=== PATIENT | male | born 1950 | race Caucasian/White ===

== ENCOUNTER → 2020-05-29 13:10 | Outpatient (BNVA) | payer MEDICARE, MEDICAID, SELFPAY | PROVIDERS: Visit Provider Internal Medicine Gastroenterology | DX: Z76.89 Persons encountering health services in other specified circumstances (principal) | CPT/HCPCS: Q3014 ==

== ENCOUNTER → 2020-06-02 10:01 | Outpatient (BNVA) | payer SELFPAY | PROVIDERS: Visit Provider Internal Medicine | DX: Z02.79 Encounter for issue of other medical certificate (principal) ==

== ENCOUNTER → 2020-08-27 09:23 | Outpatient (BNVA) | payer MEDICARE, MEDICAID, SELFPAY | PROVIDERS: Visit Provider Internal Medicine Gastroenterology | DX: D13.2 Benign neoplasm of duodenum (principal); K21.9 Gastro-esophageal reflux disease without esophagitis; Z86.010 Personal history of colon polyps | CPT/HCPCS: Q3014 ==

== ENCOUNTER 2020-12-09 08:03 | Outpatient (REF) | payer MEDICARE, MEDICAID, SELFPAY ==
[2020-12-09 11:58] LABS: Alanine Aminotransferase 50 U/L (0-40); Albumin Level 4.4 g/dL (3.5-5.0); Alkaline Phosphatase 85 U/L (39-117); Anion Gap 13 (12-20); Aspartate Amino Transferase 38 U/L (5-37); Bilirubin Total 0.3 mg/dL (0.0-1.0); Blood Urea Nitrogen 13 mg/dL (9-16); Carbon Dioxide 25 mmol/L (22-29); Chloride 107 mmol/L (96-108); Cholesterol 148 mg/dL; Estimated Glomerular Filt Rate > 60; Glucose Fasting 96 mg/dL (60-99); HDL Cholesterol 36 mg/dL; LDL Cholesterol Calculated 79 mg/dl; Potassium 4.6 mmol/L (3.3-5.1); Sodium 140 mmol/L (135-145); Total Protein 7.1 g/dL (6.5-8.0); Triglycerides 167 mg/dL
[2020-12-09 12:04] LABS: Prostate Specific Antigen Scr 1.24 ng/mL (<0.05-4.0); TSH reflex Free T4 1.97 uIU/mL (0.32-4.0)
== END 2020-12-09 08:04 | disposition home or self-care (01) ==
LOC: HO.HMGCLDS 08:03
PROVIDERS: PCP Nurse Practitioner Family; Visit Provider Nurse Practitioner Family
DX: Z00.00 Encounter for general adult medical examination without abnormal findings (principal); Z12.5 Encounter for screening for malignant neoplasm of prostate; M65.311 Trigger thumb, right thumb
CPT/HCPCS: 20550; 36415; 80053; 80061; 84153; 84443; 99202

== ENCOUNTER → 2020-12-11 10:11 | Outpatient (BNVA) | payer MEDICARE, MEDICAID, SELFPAY | PROVIDERS: PCP Nurse Practitioner Family; Visit Provider Hospitalist | DX: G47.33 Obstructive sleep apnea (adult) (pediatric) (principal); R06.00 Dyspnea, unspecified; M79.89 Other specified soft tissue disorders | CPT/HCPCS: 99202 ==

== ENCOUNTER → 2020-12-14 08:23 | Outpatient (REF) | payer MEDICARE, MEDICAID, SELFPAY ==
--- NOTE | 2020-12-14 08:31 | ECG_ITS ---
Test Reason : DYSPNEA Blood Pressure : / mmHG Vent. Rate : 060 BPM Atrial Rate : 060 BPM P-R Int : 172 ms QRS Dur : 084 ms QT Int : 398 ms P-R-T Axes : 064 014 013 degrees QTc Int : 398 ms Normal sinus rhythm Nonspecific T wave abnormality Abnormal ECG When compared with ECG of 06-MAR-2017 15:45, No significant change was found Referred By: Varun Maldonado Electronically Signed By:TORI REED MD
[2020-12-14 10:04] LABS: HBc Num1 0.05 S/CO (0.00-0.79)
[2020-12-14 10:05] LABS: HBsAGNum1 0.21 S/CO (0.00-0.99); Hepatitis B Core Antibody Nonreactive (Nonreactive); Hepatitis B Surface Antigen Negative (Negative); ~HepC Num1 0.05 S/CO (0.00-0.79); ~Hepatitis C Antibody Nonreactive (Nonreactive)
[2020-12-15 05:10] LABS: HBS Num1 0.21 mIU/mL (0-7.99); ~Hepatitis B Surface Antibody NONREACTIVE (Nonreactive)
[2020-12-16 08:44] LABS: Hepatitis A Antibody IgM 0.13 Index (0-0.79); ~Hepatitis A Antibody IgM Nonreactive (Nonreactive)
== END ==
LOC: HO.CARD 08:23
PROVIDERS: PCP Nurse Practitioner Family; Visit Provider Hospitalist
DX: Z01.84 Encounter for antibody response examination (principal); R06.00 Dyspnea, unspecified; R74.8 Abnormal levels of other serum enzymes; G47.33 Obstructive sleep apnea (adult) (pediatric)
CPT/HCPCS: 36415; 86704; 86706; 86709; 86803; 87340; 93005

== ENCOUNTER 2020-12-17 09:44 | Outpatient (REF) | payer MEDICARE, MEDICAID, SELFPAY ==
--- NOTE | ~2020-12-17 | US_ITS ---
EXAMINATION: US ABDOMEN COMPLETE CLINICAL INFORMATION: Elevated liver enzymes. COMPARISON: CT abdomen and pelvis with contrast dated 01/10/2011. TECHNIQUE: Real-time imaging of the abdominal viscera. Technically difficult study secondary to body habitus. FINDINGS: PANCREAS: The visualized head and body of the pancreas appears unremarkable. Remainder of the pancreas is obscured by bowel gas. ABDOMINAL AORTA: Limited visualization of the proximal aorta. The mid and distal aorta. Unremarkable., INFERIOR VENA CAVA: Limited visualization, visualized segments appear unremarkable. LIVER: Diffuse increased hepatic echogenicity. Liver is enlarged spanning 20 cm. The liver contour is normal. No focal hepatic lesion. There is no intrahepatic biliary duct dilatation seen. GALLBLADDER: Gallstones present. The gallbladder is physiologically distended. No evidence of gallbladder wall thickening or pericholecystic fluid. COMMON BILE DUCT: Normal in caliber measuring 0.52 cm in diameter. RIGHT KIDNEY: Normal. No hydronephrosis. No renal calculi or focal parenchymal lesions. The kidney measures 12.7 cm in maximum dimension. LEFT KIDNEY: Upper pole 1.7 cm anechoic avascular cyst. Lower pole 1 cm exophytic anechoic avascular cyst. No hydronephrosis or renal calculi. The kidney measures 13.9 cm in maximum dimension. SPLEEN: Normal. The spleen measures 12.3 cm in maximum dimension. FREE FLUID: None. US/US abdomen complete IMPRESSION: 1. Hepatomegaly. There is generalized increase in hepatic echotexture, consistent with fatty infiltration or hepatocellular disease. Please correlate clinically. No focal hepatic mass or intrahepatic biliary duct dilatation is seen. 2. Additional findings/details as above.
== END 2020-12-17 09:45 | disposition home or self-care (01) ==
LOC: HO.US 09:44
PROVIDERS: PCP Nurse Practitioner Family; Visit Provider Nurse Practitioner Family
DX: R74.8 Abnormal levels of other serum enzymes (principal)
CPT/HCPCS: 76700

== ENCOUNTER → 2020-12-28 09:42 | Outpatient (REF) | payer MEDICARE, MEDICAID, SELFPAY | LOC: HO.SL 09:42 | PROVIDERS: PCP Nurse Practitioner Family; Visit Provider Hospitalist | DX: G47.33 Obstructive sleep apnea (adult) (pediatric) (principal); R06.00 Dyspnea, unspecified; M79.89 Other specified soft tissue disorders | CPT/HCPCS: 95806 ==

== ENCOUNTER → 2020-12-30 10:47 | Outpatient (REF) | payer MEDICARE, MEDICAID, SELFPAY ==
--- NOTE | 2020-12-30 10:51 | CA_ITS ---
Acquisition Time: 2020-12-30 11:01:28 Total Exercise Time: 00:07:54 Test Indications: SOB Medications: SEE CHART Protocol: MINDY Max HR: 142 BPM 93% of Pred: 152 BPM Max BP: 164/088 mmHG Max Work Load: 8.0 METS Exercise stress ECHO using Bruse protocol, total of 6 min 41 sec. METS 8.00 and TAPHR up to 93 %. Pt tolerated well, denies any anginal sx. EKG with mild upsloping ST depressions seen in lateral and inferior leads. ECHO images taken at rtest and immediately after peak exercise HR achieved. Definity contrast used. Normotensive response to exercise. Test reviewed with Dr. Crocker. STRESS ECHO : Technique : Images were obtained at rest amd immediately post exercise within 1 minute Definity contrast was used to enhance endocardial definition Images were obtained in multiple views and compared side to side. Findings : At rest images were of good quality. LV systolic function is normal with normal wall motion. Post exercise images were borderline quality due to off axis views. There is good overall augmentation of LV systolic function. On off axis parasternal short axis views there appears to be inferior and inferoseptal hypokinesis of th emid segments. However these findings are not seen on apical views which are also off axis. Conclusion : Stress echo appears to be negative for ischemia with lower confidence of interpretation. Referred By: Varun Maldonado Overread By: TORI CROCKER MD
== END ==
LOC: HO.CARD 10:47
PROVIDERS: PCP Nurse Practitioner Family; Visit Provider Hospitalist
DX: R06.00 Dyspnea, unspecified (principal); G47.33 Obstructive sleep apnea (adult) (pediatric); M79.89 Other specified soft tissue disorders
CPT/HCPCS: 93350; Q9957

== ENCOUNTER → 2021-02-01 10:23 | Outpatient (BNVA) | payer MEDICARE, MEDICAID, SELFPAY | PROVIDERS: PCP Nurse Practitioner Family; Visit Provider Hospitalist | DX: G47.33 Obstructive sleep apnea (adult) (pediatric) (principal); R06.00 Dyspnea, unspecified; M79.89 Other specified soft tissue disorders | CPT/HCPCS: 99212 ==

== ENCOUNTER → 2021-02-10 14:18 | Outpatient (BNVA) | payer MEDICARE, MEDICAID, SELFPAY | PROVIDERS: Visit Provider Urology | DX: N28.1 Cyst of kidney, acquired (principal); N20.0 Calculus of kidney; G47.33 Obstructive sleep apnea (adult) (pediatric); Z87.891 Personal history of nicotine dependence | CPT/HCPCS: 99202 ==

== ENCOUNTER → 2021-03-04 09:43 | Outpatient (BNVA) | payer MEDICARE, MEDICAID, SELFPAY | PROVIDERS: Referring Provider Nurse Practitioner Family; Visit Provider Internal Medicine Gastroenterology | DX: K21.9 Gastro-esophageal reflux disease without esophagitis (principal); D13.2 Benign neoplasm of duodenum; K76.0 Fatty (change of) liver, not elsewhere classified; E66.01 Morbid (severe) obesity due to excess calories; R06.00 Dyspnea, unspecified; M79.89 Other specified soft tissue disorders; G47.33 Obstructive sleep apnea (adult) (pediatric); Z87.891 Personal history of nicotine dependence; Z68.41 Body mass index [BMI] 40.0-44.9, adult; Z86.010 Personal history of colon polyps; Z79.899 Other long term (current) drug therapy | CPT/HCPCS: 99212 ==

== ENCOUNTER → 2021-03-15 10:40 | Outpatient (BNVA) | payer MEDICARE, MEDICAID, SELFPAY | PROVIDERS: PCP Nurse Practitioner Family; Visit Provider Hospitalist | DX: G47.33 Obstructive sleep apnea (adult) (pediatric) (principal); M79.89 Other specified soft tissue disorders; R06.00 Dyspnea, unspecified | CPT/HCPCS: 99212 ==

== ENCOUNTER → 2021-03-19 11:02 | Outpatient (BNVA) | payer MEDICARE, MEDICAID, SELFPAY | PROVIDERS: Visit Provider Dietitian, Registered | DX: E66.01 Morbid (severe) obesity due to excess calories (principal); Z68.41 Body mass index [BMI] 40.0-44.9, adult | CPT/HCPCS: 97802 ==

== ENCOUNTER 2021-04-12 08:56 | Day surgery (SDC) | payer MEDICARE, MEDICAID, SELFPAY ==
[2021-04-06 14:46] VITALS: BMI 43.9
--- NOTE | 2021-04-09 13:04 | P.CONAN_ITS ---
Documented by User: Fannie Ash NP 04/09/21 13:09 HPI - Anesthesia Eval Consult details Narrative: 71yo M for Upper Endoscopy and Colonoscopy [facility] Active Problems Active Problems: All Active Problems (Updated 03/04/21 @ 10:15 by Rod Gomez MD) Morbid obesity with BMI of 40.0-44.9, adult (Acute) NAFL (nonalcoholic fatty liver) (Acute) Cyst of left kidney (Acute) Limb swelling (Acute) Dyspnea (Acute) DESIREE (obstructive sleep apnea) (Acute) Trigger finger of right thumb (Acute) Elevated liver enzymes (Acute) Sleep apnea (Acute) Trigger finger of all digits of both hands (Acute) Trigger finger of both hands (Acute) Physical exam (Acute) Hyperlipidemia (Acute) Gout (Acute) Hypertension (Acute) History of colon polyps (Acute) Adenomatous duodenal polyp (Acute) GERD without esophagitis (Acute) Past Medical History Medical History (Updated 04/09/21 @ 13:05 by Fannie Ash NP) Cyst of left kidney Dyspnea GERD without esophagitis Gout Hyperlipidemia Hypertension Limb swelling Morbid obesity with BMI of 40.0-44.9, adult NAFL (nonalcoholic fatty liver) DESIREE (obstructive sleep apnea) Sleep apnea Family History Family History Father Family history of high blood pressure Mother Hx of rheumatoid arthritis Surgical History Surgical History History of colonoscopy Hx of endoscopy Hx of total knee replacement Social History Social History Household Members: Spouse Alcohol intake: current Alcohol intake frequency: does not drink Patient Tobacco Use Status: Former Tobacco user Tobacco use type: Cigarette Years Smoked: 5 years Advance Directives: No Advance Directives Information Provided: Yes Current occupational status: retired Current occupation: rt hand Meds Allergies Allergy/AdvReac Type Severity Reaction Status Date / Time No Known Allergies Allergy Verified 03/15/21 10:47 [No Known Allergies*] Home Medications Medication Instructions Recorded Confirmed Last Taken Type escitalopram oxalate 10 mg tablet 10 mg PO DAILY 11/19/20 03/04/21 Unknown History hydroxyzine pamoate 25 mg capsule 25 mg PO BID 11/19/20 03/04/21 12/11/20 10:24 History cholecalciferol (vitamin D3) 250 250 mcg PO DAILY 12/11/20 03/04/21 Unknown History mcg (10,000 unit) capsule fluticasone propionate 50 spray INTRANASAL 12/11/20 03/04/21 Unknown History mcg/actuation nasal spray,suspension oxcarbazepine 300 mg tablet 300 mg PO BID 12/11/20 03/04/21 Unknown History Exam Exam Date and Time: April 09, 2021 1304 Height,Weight and Vital Signs: Height 5 ft 9 in Weight 135.171 kg Pertinent Lab Results Pertinent Lab Results: Laboratory Tests 12/09/20 08:13 Sodium 140 Potassium 4.6 Chloride 107 Carbon Dioxide 25 BUN 13 Creatinine 0.98 Calcium 9.0 Total Bilirubin 0.3 AST 38 H ALT 50 H Alkaline Phosphatase 85 Total Protein 7.1 Albumin 4.4 Narrative Narrative: EKG 11/2020 Vent. Rate : 060 BPM ? ? Atrial Rate : 060 BPM ?? P-R Int : 172 ms? QRS Dur : 084 ms ? ? QT Int : 398 ms ? ? ? P-R-T Axes : 064 014 013 degrees ?? QTc Int : 398 ms ? Normal sinus rhythm Nonspecific T wave abnormality Abnormal ECG When compared with ECG of 06-MAR-2017 15:45, No significant change was found Stress ECHO 12/2020 Exercise stress ECHO using Bruse protocol, total of 6 min 41 sec.? METS 8.00 and ?TAPHR up to 93 %.? Pt tolerated well, denies any anginal sx.? EKG with mild ?upsloping ST depressions seen in lateral and inferior leads.? ECHO images taken ?at rtest and immediately after peak exercise HR achieved.? Definity contrast ?used.? Normotensive response to exercise.? Test reviewed with Dr. Crocker. ? Assessment and Plan Assessment Anesthesia Assessment: Chart Reviewed Documented by User: Jannie Sutherland MD 04/12/21 09:22 [facility] Past Medical History Medical History (Updated 04/09/21 @ 13:05 by Fannie Ash NP) Cyst of left kidney Dyspnea GERD without esophagitis Gout Hyperlipidemia Hypertension Limb swelling Morbid obesity with BMI of 40.0-44.9, adult NAFL (nonalcoholic fatty liver) DESIREE (obstructive sleep apnea) Sleep apnea Family History Family History Father Family history of high blood pressure Mother Hx of rheumatoid arthritis Family history of problems with anesthesia: No Surgical History Surgical History History of colonoscopy Hx of endoscopy Hx of total knee replacement History of Problems with Anesthesia: No Social History Social History Household Members: Spouse Alcohol intake: current Alcohol intake frequency: does not drink Patient Tobacco Use Status: Former Tobacco user Tobacco use type: Cigarette Years Smoked: 5 years Advance Directives: No Advance Directives Information Provided: Yes Current occupational status: retired Current occupation: rt hand Meds Allergies Allergy/AdvReac Type Severity Reaction Status Date / Time No Known Allergies Allergy Verified 03/15/21 10:47 [No Known Allergies*] Home Medications Medication Instructions Recorded Confirmed Last Taken Type escitalopram oxalate 10 mg tablet 10 mg PO DAILY 11/19/20 03/04/21 Unknown History hydroxyzine pamoate 25 mg capsule 25 mg PO BID 11/19/20 03/04/21 12/11/20 10:24 History cholecalciferol (vitamin D3) 250 250 mcg PO DAILY 12/11/20 03/04/21 Unknown History mcg (10,000 unit) capsule fluticasone propionate 50 spray INTRANASAL 12/11/20 03/04/21 Unknown History mcg/actuation nasal spray,suspension oxcarbazepine 300 mg tablet 300 mg PO BID 12/11/20 03/04/21 Unknown History Exam Airway Mallampati Class: III TM Dist: >3cm Neck ROM: Full Heart: rrr Lungs: cta Assessment and Plan Assessment Anesthesia Assessment: Anesthesia Plan Discussed and Chart Reviewed Final Anesthetic Review Family History of Problems with Anesthesia: No History of Problems with Anesthesia: No NPO: Yes ASA Class: III Final Preanesthetic Review: No Changes in Pt Med Stat, Meds/Allgs Chart Reviewed and Consent Obtained/Reviewed Patient Risk: Intermediate Procedure Risk: Intermediate Anesthetic Plan Anesthetic Plan: MAC: Disposition: Standard PACU
[2021-04-12 09:27] VITALS: BP 147/72; PULSE 54; RESP 18; TEMP 35.9; O2SAT 97; BMI 43.9
[2021-04-12] MEDS: Lactated Ringers 1,000 ML 100 ML IVCONT (09:35)
--- NOTE | 2021-04-12 09:50 | P.HPSUR_ITS ---
Pre-Procedural Eval Section A Date of Service: 04/12/21 The patient is an INPATIENT: No The History & Physical has been completed within 30 days and I have reviewed it.: No Section B Chief Complaint: reflux disease,hx colonic polyps Details of Present Illness: Colon cancer screening, history of duodenal and colon polyps Relevant Family History (Specify if Yes): No Relevant Social History: Tobacco Use (former smoker) Present Medications: see Short Stay Collaborative assessment Medical History: Significant History (Dyspnea Limb swelling DESIREE (obstructive sleep apnea) Sleep apnea) History of Previous Operations: Relevant previous surgery/procedure and date(s) (History of colonoscopy Hx of endoscopy Hx of total knee replacement) Allergies: Allergies Allergy/AdvReac Type Severity Reaction Status Date / Time No Known Allergies Allergy Verified 03/15/21 10:47 [No Known Allergies*] Review of Systems Sugical H&P ROS: Negative: Constitution, Cardiovascular, Respiratory and Gastr ointestinal Exam Surgical H&P Exam: Normal: Heart, Normal: Lungs, Normal: Extremities and Normal: Abdomen Plan Diagnosis/Plan: Unchanged I have reviewed the history and physical and performed a pertinent physical examination on my patient. No changes have occurred unless specified.
--- NOTE | 2021-04-12 10:15 | P.BOP_ITS ---
Brief Operative Note Date of Service: 04/12/21 Pre-op diagnosis: Colon cancer screening, history of colon and duodenal polyp Post-op diagnosis: other (Gastritis, colon polyps, diverticulosis, hemorrhoids) Procedure: FLEXIBLE TRANSORAL UPPER GASTROINTESTINAL ENDOSCOPY AND COLONOSCOPY PROCEDURE NOTE UPPER ENDOSCOPY Consent: Indications for the procedure and potential complications of bleeding, perforation, reaction to medications and missed diagnosis were discussed with the patient and informed consent was obtained. Instrument: Olympus GIF H 190 mid size upper endoscope Monitoring: Vital signs and clinical assessment, continuous EKG monitoring, Pulse oximetry, Carbon Dioxide monitoring and blood pressure monitoring were done throughout the procedure. Procedure: The patient was placed in the left lateral decubitis position and pre-procedure medications were administered and a bite block was placed. The endoscope was inserted into the mouth and advanced under direct vision to the third part of duodenum. A careful inspection was made as the upper endoscope was withdrawn including a retroflexed examination of the proximal stomach; Findings and interventions are described below. Findings: Larynx: Normal Esophagus: GE junction at 38 cms. No esophagitis or Hinson's. Stomach: Mild gastric erythema with a few antral erosions. Biopsies were obtained from the gastric body and antrum. Grade 2 flap valve on retroflexed examination of the cardia. Duodenum: Normal bulb and descending duodenum. No recurrent polyp noted in the 2nd part of duodenum. Random biopsies were obtained. Intervention: Biopsies as noted above COLONOSCOPY PROCEDURE NOTE Consent: Indications for the procedure and potential complications of bleeding, perforation, reaction to medications and missed diagnosis were discussed with the patient and informed consent was obtained. Instrument: Olympus PCF H 190 L variable stiffness pediatric colonoscope Monitoring: Vital signs and clinical assessment, intermittent blood pressure monitoring, continuous EKG monitoring, Pulse oximetry and Carbon Dioxide monitoring were done throughout the procedure. Colon withdrawl time was 35 minutes. Procedure: The patient was placed in the left lateral decubitis position and pre-procedure medications were administered. After a digital rectal examination of the ano-rectum, the video colonoscope was inserted into the rectum and advanced through the colon to the cecum. The colonoscope was slowly withdrawn in a retrograde panoramic fashion and the colon mucosa was carefully examined including a retroflexed view of the rectum. Findings and interventions are described below. Procedure Difficulty: : Without difficulty Findings: Terminal Ileum: Not evaluated Cecum: Partially evaluated because of poor prep Ascending Colon: A 15-18 mm sessile polyp in the distal AC removed with a hot s nare and retrieved with a Woods net. Transverse Colon: Two 12-15 mm sessile polyps removed with a hot snare and polyps were not retrieved Descending Colon: Normal Sigmoid Colon: Mild diverticulosis Rectum: Normal Ano-rectum: Mild internal hemorrhoids Colon preparation: Good after copious irrigation and Fair to poor in the cecum and some areas of the colon causing the scope to be blocked. Impression and Post Procedure Diagnosis: Endoscopy Findings: STOMACH: Gastritis with a few erosions DUODENUM: Normal - no recurrent duodenal polyp noted. Colonoscopy Findings: Three medium sized polyps removed - one polyp was retieved. Mild diverticulosis seen in the sigmoid colon Mild hemorrhoids on retroflexed exam. Plan: Await pathology results Patient has an appointment on 04/19/21 in the GI Clinic with Rod Gomez M.D.. Repeat Colonoscopy interval based on path results - in 1-2 years if polyps are adenomatous and due to suboptimal prep in the cecum. Above findings were reviewed with the patient and colon polyps handout was given in the discharge area Surgeon: Rod Gomez MD Anesthesia: MAC (Britany Welch CRNA) Was an Emergency Room Registered Nurse used for this Procedure?: Yes Emergency Room Registered Nurse: Debby Sullivan Estimated blood loss (mL): 0 Pathology: other ( A- DUODENAL FOLD B- GASTRIC ANTRUM C- GASTRIC BODY D- ASCENDING COLON POLYP) Condition: stable Disposition: PACU
--- NOTE | 2021-04-12 11:12 | W.PM.OPN ---
Operative Note Operative Note Date of Service: 04/12/21 Narrative: Pre-op diagnosis:?Colon cancer screening, history of colon and duodenal polyp Post-op diagnosis:?other (Gastritis, colon polyps, diverticulosis, hemorrhoids) Procedure:? FLEXIBLE TRANSORAL UPPER GASTROINTESTINAL ENDOSCOPY AND COLONOSCOPY TILL CECUM WITH SNARE POLYPECTOMY UPPER ENDOSCOPY Consent:?Indications for the procedure and potential complications of bleeding, perforation, reaction to medications and missed diagnosis were discussed with the patient and informed consent was obtained. Instrument:?Olympus GIF H 190 mid size upper endoscope Monitoring: Vital signs and clinical assessment, continuous EKG monitoring, Pulse oximetry, Carbon Dioxide monitoring and blood pressure monitoring were done throughout the procedure. Procedure:?The patient was placed in the left lateral decubitis position and pre-procedure medications were administered and a bite block was placed. The endoscope was inserted into the mouth and advanced under direct vision to the third part of duodenum. A careful inspection was made as the upper endoscope was withdrawn including a retroflexed examination of the proximal stomach; Findings and interventions are described below. Findings: Larynx:? Normal Esophagus: GE junction at 38 cms.? No esophagitis or Hinson's. Stomach: Mild gastric erythema with a few antral erosions. Biopsies were obtained from the gastric body and antrum. Grade 2 flap valve on retroflexed examination of the cardia. Duodenum: Normal bulb and descending duodenum.? No recurrent polyp noted in the 2nd part of duodenum.? Random biopsies were obtained. Intervention: Biopsies as noted above COLONOSCOPY PROCEDURE NOTE Consent:?Indications for the procedure and potential complications of bleeding, perforation, reaction to medications and missed diagnosis were discussed with the patient and informed consent was obtained. Instrument:?Olympus PCF H 190 L variable stiffness pediatric colonoscope Monitoring:?Vital signs and clinical assessment, intermittent blood pressure monitoring, continuous EKG monitoring, Pulse oximetry and Carbon Dioxide monitoring were done throughout the procedure. Colon withdrawl time was 35 minutes. Procedure:?The patient was placed in the left lateral decubitis position and pre-procedure medications were administered. After a digital rectal examination of the ano-rectum, the video colonoscope was inserted into the rectum and advanced through the colon to the cecum. The colonoscope was slowly withdrawn in a retrograde panoramic fashion and the colon mucosa was carefully examined including a retroflexed view of the rectum. Findings and interventions are described below. Procedure Difficulty:?: Without difficulty Findings: Terminal Ileum:?Not evaluated Cecum:? Partially evaluated because of poor prep Ascending Colon:? A 15-18 mm sessile polyp in the distal AC removed with a hot snare and retrieved with a Woods net. Transverse Colon:? Two 12-15 mm sessile polyps removed with a hot snare and polyps were not retrieved Descending Colon:? Normal Sigmoid Colon:? Mild diverticulosis Rectum:? Normal Ano-rectum:? Mild internal hemorrhoids Colon preparation:? Good after copious irrigation and fair to poor in the cecum and some areas of the colon causing the scope to be blocked. Impression and Post Procedure Diagnosis: Endoscopy Findings: STOMACH: Gastritis with a few erosions DUODENUM: Normal - no recurrent duodenal polyp noted. Colonoscopy Findings: Three medium sized polyps removed - one polyp was retieved. Mild diverticulosis seen in the sigmoid colon Mild hemorrhoids on retroflexed exam. Plan: Await pathology results Patient has an appointment on 04/19/21 in the GI Clinic with? Rod Gomez M.D.. Repeat Colonoscopy interval based on path results - in 1-2 years if polyps are adenomatous and due to suboptimal prep in the cecum. GERD and Colon polyps handouts were given in the discharge area Surgeon:?Rod Gomez MD Anesthesia:?MAC (Britany Welch CRNA) Was an Toll Transmission Worker used for this Procedure?:?Yes Toll Transmission Worker:?Debby Sullivan Estimated blood loss (mL):?0 Pathology:?other ( A- DUODENAL FOLD? B- GASTRIC ANTRUM? C- GASTRIC BODY? D- ASCENDING COLON POLYP) Condition:?stable Disposition:?PACU
[2021-04-12 11:15] VITALS: BP 120/77; PULSE 53; RESP 16; TEMP 36.4; O2SAT 95
[2021-04-12 11:30] VITALS: BP 137/82; PULSE 57; RESP 18; O2SAT 96
[2021-04-12 11:40] VITALS: BP 135/79; PULSE 53; RESP 18; TEMP 36.7; O2SAT 99
== END 2021-04-12 12:32 | disposition home or self-care (01) ==
PROVIDERS: PCP Nurse Practitioner Family; Visit Provider Internal Medicine Gastroenterology
PROC: (CPT 45385; principal; 2021-04-12 10:20)
DX: Z12.11 Encounter for screening for malignant neoplasm of colon (principal); Z86.010 Personal history of colon polyps; D12.2 Benign neoplasm of ascending colon; K21.9 Gastro-esophageal reflux disease without esophagitis; K29.50 Unspecified chronic gastritis without bleeding; K57.30 Diverticulosis of large intestine without perforation or abscess without bleeding; K64.8 Other hemorrhoids; K76.0 Fatty (change of) liver, not elsewhere classified; G47.33 Obstructive sleep apnea (adult) (pediatric); E66.01 Morbid (severe) obesity due to excess calories; Z68.41 Body mass index [BMI] 40.0-44.9, adult; R06.00 Dyspnea, unspecified; Z79.899 Other long term (current) drug therapy; Z99.89 Dependence on other enabling machines and devices; Z87.891 Personal history of nicotine dependence
CPT/HCPCS: 45385; 43239; 88305; 88342; J3010

== ENCOUNTER → 2021-04-19 13:53 | Outpatient (BNVA) | payer MEDICARE, MEDICAID, SELFPAY | PROVIDERS: Referring Provider Nurse Practitioner Family; Visit Provider Internal Medicine Gastroenterology | DX: K21.9 Gastro-esophageal reflux disease without esophagitis (principal); D13.2 Benign neoplasm of duodenum; Z86.010 Personal history of colon polyps | CPT/HCPCS: 99212 ==

== ENCOUNTER → 2021-04-30 10:18 | Outpatient (BNVA) | payer MEDICARE, MEDICAID, SELFPAY | PROVIDERS: Visit Provider Dietitian, Registered | DX: E66.01 Morbid (severe) obesity due to excess calories (principal); Z68.41 Body mass index [BMI] 40.0-44.9, adult | CPT/HCPCS: 97803 ==

== ENCOUNTER 2021-06-29 10:12 | Outpatient (REF) | payer MEDICARE, MEDICAID, SELFPAY ==
--- NOTE | 2021-06-29 13:52 | MHC.AU.ANO ---
Adult Audiological Evaluation Date of Visit: 06/29/21 Java Mobile Developer Used: Not Applicable Reason for Appointment: Audiologic re-evaluation due to increased perception of bilateral tinnitus and family members question decreased hearing ability as he is asking for speech to be repeated more often. Tyrese notes the constant tinnitus can be annoying; however, it does not interfere with his daily functioning or sleep. Has hearing been tested previously?: Yes Previous Hearing Test Results: 12/30/2019 [facility] Bilateral borderline to mild sensorineural hearing loss with 92% speech understanding for the right ear at 70 dB HL and 88% for the left ear at 65 dB HL Ear History: Ear Infections in Childhood: Both Ears Bothersome Tinnitus/Ringing/Noises in Ears: Both Ears Medical History: Medical History: High Blood Pressure, Arthritis, Gout, Anxiety Medication List: Allopurinol, Indometacin, Oxcarbazepine, Citalopram, Omeprazole, Fluticasone Nasal [place], Hydroxyzine Pamoate Otoscopy: Right Ear: Unremarkable Left Ear: Unremarkable Tympanometry: Tympanometry performed due to: To assess integrity of the middle ear system Right Ear: Normal Middle Ear System (Type A) Left Ear: Normal Middle Ear System (Type A) Otoacoustic Emissions Frequency Range Used: 1.6-8 kHz Right Ear Results: Present 1600 Hz, Reduced 1342-8509 Hz, Absent 3258-3984 Hz Analysis: Present emissions suggest normal cochlear function Rules out peripheral hearing loss greater than a mild degree Reduced/Absent emissions suggest cochlear dysfunction Results are consistent with degree and configuration of hearing loss Left Ear Results: Present 3325-9685 Hz Absent 3444-8488 Hz. Analysis: Present emissions suggest normal cochlear function Rules out peripheral hearing loss greater than a mild degree Reduced/Absent emissions suggest cochlear dysfunction Results are consistent with degree and configuration of hearing loss Hearing Evaluation: Transducer(s) Used: Insert Earphones Bone Conduction Method: Conventional Audiometry Stimuli Used: Pure Tones Right Ear: Description of Hearing: Borderline normal to mild sensorineural hearing loss. Left Ear: Description of Hearing: Borderline normal to mild sensorineural hearing loss. Speech Recognition Threshold (SRT): Method Used: Monitored Live Voice Stimuli Used: Spondee Words Right Ear: 15 dB HL Left Ear: 15 dB HL Word Discrimination: Method: Recorded Lists Word Lists Used: NU-6 Right Ear: 96% at 55 dB HL Left Ear: 100% at 55 dB HL Comparison:Compared to the most recent evaluation: Hearing is stable. Recommendations: - Audiologic re-evaluation in 2 years. Will send a reminder card. If a change in hearing or tinnitus is suspected before that time, an earlier appointment may be scheduled. - Discussed the theories of tinnitus and management strategies. - Discussed the difference between hearing vs listening , and the role attention plays with these skills. Provided a handout regarding Communication Strategies to use to improve speech understanding when needed. Diagnosis: Primary Diagnosis: H93.13 Tinnitus, Bilateral Secondary Diagnosis: H90.3 Bilateral Sensorineural Hearing Loss Services Performed: Comprehensive Audiological Evaluation (CPT 17855) Diagnostic Otoacoustic Emissions (CPT 61056, 26+TC) Tympanometry (CPT 80810) Signature: Provider: Wilma Ling, CCC-A
== END 2021-06-29 10:13 | disposition home or self-care (01) ==
LOC: HO.SH 10:12
PROVIDERS: Visit Provider Nurse Practitioner Family
DX: H93.13 Tinnitus, bilateral (principal); H90.3 Sensorineural hearing loss, bilateral
CPT/HCPCS: 92557; 92567; 92588

== ENCOUNTER → 2021-07-09 20:57 | Outpatient (REF) | payer MEDICARE, MEDICAID, SELFPAY | LOC: HO.SL 20:57 | PROVIDERS: PCP Nurse Practitioner Family; Visit Provider Hospitalist | DX: G47.33 Obstructive sleep apnea (adult) (pediatric) (principal) | CPT/HCPCS: 95810 ==

== ENCOUNTER → 2021-08-06 10:01 | Outpatient (BNVA) | payer MEDICARE, MEDICAID, SELFPAY | PROVIDERS: PCP Nurse Practitioner Family; Visit Provider Dietitian, Registered | DX: E66.01 Morbid (severe) obesity due to excess calories (principal); Z68.42 Body mass index [BMI] 45.0-49.9, adult | CPT/HCPCS: 97803 ==

== ENCOUNTER → 2021-08-27 09:57 | Outpatient (BNVA) | payer MEDICARE, MEDICAID, SELFPAY | PROVIDERS: PCP Nurse Practitioner Family; Visit Provider Hospitalist | DX: G47.33 Obstructive sleep apnea (adult) (pediatric) (principal); G47.61 Periodic limb movement disorder; R06.00 Dyspnea, unspecified; M79.89 Other specified soft tissue disorders | CPT/HCPCS: 99212 ==

== ENCOUNTER → 2021-09-17 10:05 | Outpatient (BNVA) | payer MEDICARE, MEDICAID, SELFPAY | PROVIDERS: PCP Nurse Practitioner Family; Visit Provider Dietitian, Registered | DX: E66.01 Morbid (severe) obesity due to excess calories (principal); Z68.41 Body mass index [BMI] 40.0-44.9, adult; Z71.3 Dietary counseling and surveillance | CPT/HCPCS: 97803 ==

== ENCOUNTER → 2021-11-04 11:53 | Outpatient (BNVA) | payer MEDICARE, MEDICAID, SELFPAY | PROVIDERS: PCP Nurse Practitioner Family; Visit Provider Internal Medicine Gastroenterology | DX: K21.9 Gastro-esophageal reflux disease without esophagitis (principal); K76.0 Fatty (change of) liver, not elsewhere classified; R74.8 Abnormal levels of other serum enzymes; D13.2 Benign neoplasm of duodenum; Z86.010 Personal history of colon polyps | CPT/HCPCS: 99212 ==

== ENCOUNTER → 2021-11-30 09:50 | Outpatient (BNVA) | payer MEDICARE, MEDICAID, SELFPAY | PROVIDERS: PCP Nurse Practitioner Family; Visit Provider Hospitalist | DX: G47.33 Obstructive sleep apnea (adult) (pediatric) (principal); R06.00 Dyspnea, unspecified; M79.89 Other specified soft tissue disorders; G47.61 Periodic limb movement disorder | CPT/HCPCS: 99212 ==

== ENCOUNTER 2021-12-31 06:46 | Outpatient (REF) | payer MEDICARE, MEDICAID, SELFPAY ==
[2021-12-31 11:33] LABS: MANUAL DIFF FLAG NO
[2021-12-31 11:37] LABS: Basophils Absolute Auto 0.1 X10*3/uL (0.0-0.2); Basophils Percent Auto 0.8 % (0-2); Eosinophils Absolute Auto 0.1 X10*3/uL (0.0-0.4); Eosinophils Percent Auto 1.8 % (0-4); Hematocrit 49.1 % (42.0-52.0); Hemoglobin 15.7 g/dl (14.0-18.0); Imm Gran Abs Auto 0.02 X10*3/uL (0.00-0.03); Imm Gran Pct Auto 0.3 % (0.0-0.4); Lymphocytes Absolute Auto 1.4 X10*3/uL (1.2-4.9); Lymphocytes Percent Auto 22.5 % (20-40); Mean Corpuscular Hemoglobin 28.1 pg (27.0-33.0); Mean Corpuscular Volume 87.8 fL (80.0-98.0); Monocytes Absolute Auto 0.4 X10*3/uL (0.1-1.2); Monocytes Percent Auto 6.3 % (2-11); Neutrophils Absolute Auto 4.2 x10*3/uL (2.0-8.3); Neutrophils Percent Auto 68.3 % (45-73); Platelet Count 284 X10*3/uL (160-400); Red Blood Count 5.59 X10*6/uL (4.60-5.80); White Blood Count 6.2 X10*3/uL (4.8-10.8)
[2021-12-31 11:55] LABS: Appearance Urine CLEAR; Color Urine YELLOW; Glucose Urine UA NEG (NEG); Leukocyte Esterase Urine NEG (NEG); Nitrite Urine NEG (NEG); PH 5.5 (5.0-8.0); Specific Gravity - Urine 1.025 (1.005-1.025); Urine Blood NEG (NEG); Urine Ketones NEG (NEG); Urine Protein TRACE MG/DL (NEG-TRACE)
[2021-12-31 11:57] LABS: Alanine Aminotransferase 29 U/L (0-40); Albumin Level 4.6 g/dL (3.5-5.0); Alkaline Phosphatase 71 U/L (39-117); Anion Gap 13 (12-20); Aspartate Amino Transferase 21 U/L (5-37); Bilirubin Total 0.6 mg/dL (0.0-1.0); Blood Urea Nitrogen 18 mg/dL (9-16); Calcium 9.2 mg/dL (8.4-10.2); Carbon Dioxide 27 mmol/L (22-29); Chloride 103 mmol/L (96-108); Cholesterol 160 mg/dL; Estimated Glomerular Filt Rate > 60; Glucose Fasting 104 mg/dL (60-99); HDL Cholesterol 32 mg/dL; LDL Cholesterol Calculated 104 mg/dl; Potassium 4.5 mmol/L (3.3-5.1); Sodium 138 mmol/L (135-145); Total Protein 7.5 g/dL (6.5-8.0); Triglycerides 123 mg/dL
[2021-12-31 12:30] LABS: Prostate Specific Antigen Scr 1.21 ng/mL (<0.05-4.0)
[2022-01-04 15:56] LABS: TS Negative Control Passed; TS Panel A 0; TS Panel B 0; TS Positive Control Passed; TSpotTB Negative (Negative)
== END 2021-12-31 06:47 | disposition home or self-care (01) ==
LOC: HO.HMGCLDS 06:46
PROVIDERS: Visit Provider Nurse Practitioner Family
DX: Z00.00 Encounter for general adult medical examination without abnormal findings (principal); Z12.5 Encounter for screening for malignant neoplasm of prostate; Z11.1 Encounter for screening for respiratory tuberculosis
CPT/HCPCS: 36415; 80053; 80061; 81003; 84153; 84443; 85025; 86481

== ENCOUNTER → 2022-02-28 10:19 | Outpatient (BNVA) | payer MEDICARE, MEDICAID, SELFPAY | PROVIDERS: PCP Nurse Practitioner Family; Visit Provider Hospitalist | DX: G47.33 Obstructive sleep apnea (adult) (pediatric) (principal); R06.00 Dyspnea, unspecified; M79.89 Other specified soft tissue disorders; G47.61 Periodic limb movement disorder; Z79.899 Other long term (current) drug therapy | CPT/HCPCS: 99212 ==

== ENCOUNTER 2022-06-14 11:31 | Outpatient (REF) | payer MEDICARE, MEDICAID, SELFPAY ==
--- NOTE | ~2022-06-14 | XR_ITS ---
EXAMINATION: XR FOOT, LEFT CLINICAL INFORMATION: Pain left foot. COMPARISON: None. TECHNIQUE: AP, lateral, and oblique views of the left foot. FINDINGS: The bones and soft tissues are normal. No fracture. Alignment is anatomic. Joint spaces are maintained. A small retrocalcaneal enthesophyte is seen. XR/XR foot LT min 3V IMPRESSION: Unremarkable left foot.
== END 2022-06-14 11:32 | disposition home or self-care (01) ==
LOC: HO.HMGCX 11:31
PROVIDERS: PCP Nurse Practitioner Family; Visit Provider Nurse Practitioner Family
DX: M79.672 Pain in left foot (principal)
CPT/HCPCS: 73630

== ENCOUNTER 2022-06-16 08:22 | Outpatient (REF) | payer MEDICARE, SELFPAY ==
[2022-06-16 11:11] LABS: MANUAL DIFF FLAG NO
[2022-06-16 11:15] LABS: Appearance Urine Cloudy; Color Urine Yellow; Glucose Urine UA Negative (Negative); Leukocyte Esterase Urine Negative (Negative); Nitrite Urine Negative (Negative); PH 5.5 (5.0-9.0); Urine Blood Negative (Negative); Urine Ketones Negative (Negative); Urine Protein Trace mg/dL (Neg-Trace)
[2022-06-16 11:19] LABS: Basophils Percent Auto 0.6 % (0-2); Eosinophils Absolute Auto 0.1 X10*3/uL (0.0-0.4); Eosinophils Percent Auto 1.9 % (0-4); Hematocrit 52.3 % (42.0-52.0); Hemoglobin 16.3 g/dl (14.0-18.0); Imm Gran Abs Auto 0.01 X10*3/uL (0.00-0.03); Imm Gran Pct Auto 0.2 % (0.0-0.4); Lymphocytes Absolute Auto 1.5 X10*3/uL (1.2-4.9); Lymphocytes Percent Auto 24.2 % (20-40); Mean Corpuscular HGB Conc 31.2 g/dl (31.0-36.0); Mean Corpuscular Hemoglobin 27.5 pg (27.0-33.0); Mean Corpuscular Volume 88.2 fL (80.0-98.0); Mean Platelet Volume 10.3 fL (9.4-12.4); Monocytes Absolute Auto 0.4 X10*3/uL (0.1-1.2); Monocytes Percent Auto 6.3 % (2-11); Neutrophils Absolute Auto 4.1 x10*3/uL (2.0-8.3); Neutrophils Percent Auto 66.8 % (45-73); Platelet Count 257 X10*3/uL (160-400); Red Blood Count 5.93 X10*6/uL (4.60-5.80); Red Cell Distribution Width 13.6 % (11.0-16.0); White Blood Count 6.2 X10*3/uL (4.8-10.8)
[2022-06-16 11:59] LABS: Alanine Aminotransferase 24 U/L (0-40); Albumin Level 4.6 g/dL (3.5-5.0); Alkaline Phosphatase 70 U/L (39-117); Anion Gap 11 (12-20); Aspartate Amino Transferase 19 U/L (5-37); Bilirubin Total 0.5 mg/dL (0.0-1.0); Blood Urea Nitrogen 16 mg/dL (9-16); Calcium 9.6 mg/dL (8.4-10.2); Carbon Dioxide 30 mmol/L (22-29); Chloride 108 mmol/L (96-108); Cholesterol 183 mg/dL; Estimated Glomerular Filt Rate > 60; Glucose Fasting 108 mg/dL (60-99); HDL Cholesterol 37 mg/dL; LDL Cholesterol Calculated 117 mg/dl; Potassium 5.3 mmol/L (3.3-5.1); Sodium 144 mmol/L (135-145); TSH reflex Free T4 2.56 uIU/mL (0.32-4.0); Total Protein 7.5 g/dL (6.5-8.0); Triglycerides 147 mg/dL
== END 2022-06-16 08:23 | disposition home or self-care (01) ==
LOC: HO.HMGCLDS 08:22
PROVIDERS: PCP Nurse Practitioner Family; Visit Provider Nurse Practitioner Family
DX: K76.0 Fatty (change of) liver, not elsewhere classified (principal); M10.9 Gout, unspecified; E87.5 Hyperkalemia
CPT/HCPCS: 36415; 80053; 80061; 81003; 84443; 84550; 85025

== ENCOUNTER → 2022-06-22 13:47 | Outpatient (BNVA) | payer MEDICARE, SELFPAY | PROVIDERS: PCP Nurse Practitioner Family; Visit Provider Orthopaedic Surgery | DX: M77.11 Lateral epicondylitis, right elbow (principal) | CPT/HCPCS: 20551; 99212; J1100 ==

== ENCOUNTER → 2022-06-23 11:48 | Outpatient (BNVA) | payer MEDICARE, SELFPAY | PROVIDERS: PCP Nurse Practitioner Family; Referring Provider Nurse Practitioner Family; Visit Provider Internal Medicine Gastroenterology | DX: K21.9 Gastro-esophageal reflux disease without esophagitis (principal); D13.2 Benign neoplasm of duodenum; R74.8 Abnormal levels of other serum enzymes; Z86.010 Personal history of colon polyps; Z79.899 Other long term (current) drug therapy | CPT/HCPCS: 99212 ==

== ENCOUNTER 2022-07-18 11:00 | Outpatient (REF) | payer MEDICARE, SELFPAY ==
[2022-07-18 14:46] LABS: Anion Gap 14 (12-20); Carbon Dioxide 27 mmol/L (22-29); Chloride 103 mmol/L (96-108); Potassium 4.8 mmol/L (3.3-5.1); Sodium 139 mmol/L (135-145); Uric Acid 4.4 mg/dL (3.4-7.0)
== END 2022-07-18 11:01 | disposition home or self-care (01) ==
LOC: HO.HMGCLDS 11:00
PROVIDERS: Visit Provider Nurse Practitioner Family
DX: M10.9 Gout, unspecified (principal); E87.5 Hyperkalemia
CPT/HCPCS: 36415; 80051; 84550

== ENCOUNTER → 2022-08-29 10:42 | Outpatient (BNVA) | payer MEDICARE, SELFPAY | PROVIDERS: PCP Nurse Practitioner Family; Visit Provider Hospitalist | DX: G47.33 Obstructive sleep apnea (adult) (pediatric) (principal); G47.61 Periodic limb movement disorder; R06.00 Dyspnea, unspecified; M79.89 Other specified soft tissue disorders | CPT/HCPCS: 99212 ==

== ENCOUNTER 2022-10-14 11:38 | Day surgery (SDC) | payer OTHER, SELFPAY ==
[2022-10-12 10:23] VITALS: BMI 41.3
--- NOTE | 2022-10-13 09:55 | HO.ANESPROP2 ---
Documented by User: Fannie Ash NP 10/13/22 09:57 HPI - Anesthesia Eval Consult details Narrative: 72yo M for Upper Endoscopy and Colonoscopy PMF Active Problems Active Problems: All Active Problems (Updated 10/12/22 @ 10:19 by Destiny Pryor RN) Adenomatous duodenal polyp (Acute) History of colon polyps (Acute) Physical exam (Acute) Trigger finger of both hands (Acute) Trigger finger of all digits of both hands (Acute) Sleep apnea (Acute) Elevated liver enzymes (Acute) Trigger finger of right thumb (Acute) Dyspnea (Acute) Hearing loss (Acute) Physical exam (Acute) Screening PSA (prostate specific antigen) (Acute) Screening for tuberculosis (Acute) Foot pain, left (Acute) Hyperkalemia (Acute) Right lateral epicondylitis (Acute) Dyspnea (Acute) Gout (Acute) PLMD (periodic limb movement disorder) (Acute) GERD without esophagitis (Acute) Cyst of left kidney (Acute) NAFL (nonalcoholic fatty liver) (Acute) Limb swelling (Acute) DESIREE (obstructive sleep apnea) (Acute) Past Medical History Medical History Cyst of left kidney Dyspnea GERD without esophagitis Gout Hyperlipidemia Hypertension Limb swelling Morbid obesity with BMI of 40.0-44.9, adult NAFL (nonalcoholic fatty liver) DESIREE (obstructive sleep apnea) PLMD (periodic limb movement disorder) Family History Family History Father Family history of high blood pressure Mother Hx of rheumatoid arthritis Family history of problems with anesthesia: No Surgical History Surgical History History of colonoscopy Hx of endoscopy Hx of total knee replacement History of Problems with Anesthesia: No Social History Social History Household Members: Spouse Housing: House Alcohol intake: current Alcohol intake frequency: former alcohol drinker Patient Tobacco Use Status: Former Tobacco user Quit Date: 45 yrs ago Tobacco use type: Cigarette Years Smoked: 5 years e-Cigarette/Vaping Use: Never Used Second Hand Smoke Exposure: No Use of substances other than those prescribed or required for medical reasons: No Are you DNR?: No Advance Directives: No Advance Directives Information Provided: Yes Current occupational status: retired Current occupation: rt hand Cognitive needs: No Hearing needs: No Vision needs: Yes Meds Allergies Allergy/AdvReac Type Severity Reaction Status Date / Time No Known Allergies Allergy Verified 10/14/22 11:58 [No Known Allergies*] Home Medications Medication Instructions Recorded Confirmed Last Taken Type escitalopram oxalate 10 mg tablet 10 mg PO DAILY 11/19/20 10/14/22 10/14/22 08:00 History cholecalciferol (vitamin D3) 250 250 mcg PO DAILY 12/11/20 10/14/22 Unknown History mcg (10,000 unit) capsule oxcarbazepine 300 mg tablet 300 mg PO BID dizziness 12/11/20 10/14/22 10/14/22 08:00 History CPAP (CPAP Machine/Device) 08/29/22 10/14/22 Unknown History Exam Exam Date and Time: October 13, 2022 0955 Height,Weight and Vital Signs: Height 5 ft 9 in Weight 127.006 kg Pertinent Lab Results Pertinent Lab Results: Laboratory Tests 06/16/22 06/16/22 07/18/22 08:27 08:27 11:05 WBC 6.2 Hgb 16.3 Hct 52.3 H Plt Count 257 Sodium 139 Potassium 4.8 Chloride 103 Carbon Dioxide 27 BUN 16 Creatinine 0.99 Assessment and Plan Assessment Anesthesia Assessment: Chart Reviewed Final Anesthetic Review Family History of Problems with Anesthesia: No History of Problems with Anesthesia: No Documented by User: Jannie Sutherland MD 10/14/22 13:12 [facility] [place] Past Medical History Medical History Cyst of left kidney Dyspnea GERD without esophagitis Gout Hyperlipidemia Hypertension Limb swelling Morbid obesity with BMI of 40.0-44.9, adult NAFL (nonalcoholic fatty liver) DESIREE (obstructive sleep apnea) PLMD (periodic limb movement disorder) Family History Family History Father Family history of high blood pressure Mother Hx of rheumatoid arthritis Surgical History Surgical History History of colonoscopy Hx of endoscopy Hx of total knee replacement Social History Social History Household Members: Spouse Housing: House Alcohol intake: current Alcohol intake frequency: former alcohol drinker Patient Tobacco Use Status: Former Tobacco user Quit Date: 45 yrs ago Tobacco use type: Cigarette Years Smoked: 5 years e-Cigarette/Vaping Use: Never Used Second Hand Smoke Exposure: No Use of substances other than those prescribed or required for medical reasons: No Are you DNR?: No Advance Directives: No Advance Directives Information Provided: Yes Current occupational status: retired Current occupation: rt hand Cognitive needs: No Hearing needs: No Vision needs: Yes Meds Allergies Allergy/AdvReac Type Severity Reaction Status Date / Time No Known Allergies Allergy Verified 10/14/22 11:58 [No Known Allergies*] Home Medications Medication Instructions Recorded Confirmed Last Taken Type escitalopram oxalate 10 mg tablet 10 mg PO DAILY 11/19/20 10/14/22 10/14/22 08:00 History cholecalciferol (vitamin D3) 250 250 mcg PO DAILY 12/11/20 10/14/22 Unknown History mcg (10,000 unit) capsule oxcarbazepine 300 mg tablet 300 mg PO BID dizziness 12/11/20 10/14/22 10/14/22 08:00 History CPAP (CPAP Machine/Device) 08/29/22 10/14/22 Unknown History Exam Airway Mallampati Class: II TM Dist: >3cm Neck ROM: Full Heart: rrr Lungs: cta Assessment and Plan Assessment Anesthesia Assessment: Anesthesia Plan Discussed Final Anesthetic Review NPO: Yes ASA Class: III Final Preanesthetic Review: No Changes in Pt Med Stat, Meds/Allgs Chart Reviewed and Consent Obtained/Reviewed Patient Risk: Intermediate Procedure Risk: Intermediate Anesthetic Plan Anesthetic Plan: MAC: Disposition: Standard PACU
--- NOTE | 2022-10-14 12:09 | MHC.SHP ---
Pre-Procedural Eval Section A Date of Service: 10/14/22 The patient is an INPATIENT: No The History & Physical has been completed within 30 days and I have reviewed it.: No Section B Chief Complaint: abnormal levels,gerd,benign neoplasm,hx polyps Relevant Family History (Specify if Yes): No Relevant Social History: Tobacco Use (Former smoker) Present Medications: see Short Stay Collaborative assessment Medical History: Significant History (Dyspnea GERD without esophagitis Gout Hyperlipidemia Hypertension Limb swelling Morbid obesity with BMI of 40.0-44.9, adult NAFL (nonalcoholic fatty liver) DESIREE (obstructive sleep apnea) PLMD (periodic limb movement disorder) Sleep apnea) History of Previous Operations: Relevant previous surgery/procedure and date(s) (History of colonoscopy Hx of endoscopy Hx of total knee replacement) Allergies: Allergies Allergy/AdvReac Type Severity Reaction Status Date / Time No Known Allergies Allergy Verified 10/14/22 11:58 [No Known Allergies*] Review of Systems Sugical H&P ROS: Negative: Constitution, Cardiovascular, Respiratory and Gastrointestinal Exam Surgical H&P Exam: Normal: Heart, Normal: Lungs, Normal: Extremities and Normal: Abdomen Plan Diagnosis/Plan: Unchanged I have reviewed the history and physical and performed a pertinent physical examination on my patient. No changes have occurred unless specified. Time Spent With Patient Time: Total time managing care of this patient today ____ minutes.
--- NOTE | 2022-10-14 12:11 | W.PM.OPN ---
Operative Note Operative Note Date of Service: 10/14/22 Narrative: FLEXIBLE TRANSORAL UPPER GASTROINTESTINAL ENDOSCOPY WITH BIOPSIES AND SUBMUCOSAL INJECTION AND COLONOSCOPY TILL CECUM WITH BIOPSIES AND SNARE POLYPECTOMY Pre-op diagnosis: Screening, GERD, FU of adenomatous duodenal polyp Post-op diagnosis: Gastritis, duodenal polyp, colon polyps, diverticulosis, hemorrhoids Endoscopist:? Rod Gomez MD Anesthesia:?MAC UPPER ENDOSCOPY Consent: Indications for the procedure and potential complications of bleeding, perforation, reaction to medications and missed diagnosis were discussed with the patient and informed consent was obtained. Instrument: Olympus GIF H 190 mid size upper endoscope Monitoring: Vital signs and clinical assessment, continuous EKG monitoring, Pulse oximetry, Carbon Dioxide monitoring and blood pressure monitoring were done throughout the procedure. Procedure: The patient was placed in the left lateral decubitis position and pre-procedure medications were administered and a bite block was placed. The endoscope was inserted into the mouth and advanced under direct vision to the third part of duodenum. A careful inspection was made as the upper endoscope was withdrawn including a retroflexed examination of the proximal stomach; Findings and interventions are described below. Findings: Larynx: Normal Esophagus: GE junction at 38 cms.? No esophagitis or Hinson's. Stomach: Mild gastric erythema with a few antral erosions. Biopsies were obtained from the gastric body and antrum. Grade 2 flap valve on retroflexed examination of the cardia. Duodenum: Normal bulb and descending duodenum.? A 7 to 8 mm benign appearing polyp in lateral wall of 2nd part of duodenum (opposite the papilla). Polyp was removed with a cold bx and site was marked by ranjith ink.? Intervention: Biopsies and submucosal injection as noted above COLONOSCOPY PROCEDURE NOTE Consent: Indications for the procedure and potential complications of bleeding, perforation, reaction to medications and missed diagnosis were discussed with the patient and informed consent was obtained. Instrument: Olympus PCF H 190 L variable stiffness pediatric colonoscope Monitoring: Vital signs and clinical assessment, intermittent blood pressure monitoring, continuous EKG monitoring, Pulse oximetry and Carbon Dioxide monitoring were done throughout the procedure. Colon withdrawl time was 25 minutes. Procedure: The patient was placed in the left lateral decubitis position and pre-procedure medications were administered. After a digital rectal examination of the ano-rectum, the video colonoscope was inserted into the rectum and advanced through the colon to the cecum. The colonoscope was slowly withdrawn in a retrograde panoramic fashion and the colon mucosa was carefully examined including a retroflexed view of the rectum. Findings and interventions are described below. Procedure Difficulty: Colon was long and there was spasm and some loop formation. Findings: Terminal Ileum: Not evaluated Cecum: Two 5-7 mm sessile polyp - removed with a cold biopsy Ascending Colon: A 10 - 12 mm sessile polyp in the proximal ascending colon - removed with hot snare. Polyp was not retrieved Transverse Colon: Normal Descending Colon: Normal Sigmoid Colon: Moderate diverticulosis Rectum: Normal Ano-rectum: Moderate internal hemorrhoids Colon preparation: Good in the left colon and Fair in the right colon despite copious irrigation Impression and Post Procedure Diagnosis: Endoscopy Findings: STOMACH: Gastritis DUODENUM: Duodenal polyp Colonoscopy Findings: Two small and one medium sized polyps removed Moderate diverticulosis seen in the sigmoid colon Moderate hemorrhoids on retroflexed exam. Plan: Await pathology results Patient has an appointment on 12/22/22 in the GI Clinic with Rod Gomez M.D. Repeat Colonoscopy interval based on path results - in 3 years if polyps are adenomatous and 5 years if polyps are hyperplastic (due to a hx of adenomatous colon polyps).. Above findings were reviewed with the patient and colon polyps and diverticulosis handouts were given in the discharge area
[2022-10-14 12:38] VITALS: BP 137/79; PULSE 46; RESP 16; TEMP 36.4; O2SAT 97
[2022-10-14] MEDS: Lactated Ringers 1,000 ML 100 ML IVCONT (12:40)
[2022-10-14 14:22] VITALS: BP 112/56; PULSE 61; RESP 16; TEMP 36.2
[2022-10-14 14:42] VITALS: BP 149/82; PULSE 49; RESP 20; TEMP 36.4
== END 2022-10-14 16:00 | disposition home or self-care (01) ==
PROVIDERS: PCP Nurse Practitioner Family; Visit Provider Internal Medicine Gastroenterology
PROC: (CPT 45385; principal; 2022-10-14 12:50)
DX: Z12.11 Encounter for screening for malignant neoplasm of colon (principal); Z86.010 Personal history of colon polyps; K63.5 Polyp of colon; K57.30 Diverticulosis of large intestine without perforation or abscess without bleeding; K64.8 Other hemorrhoids; R74.8 Abnormal levels of other serum enzymes; K76.0 Fatty (change of) liver, not elsewhere classified; K21.9 Gastro-esophageal reflux disease without esophagitis; D13.2 Benign neoplasm of duodenum; K29.50 Unspecified chronic gastritis without bleeding; R06.00 Dyspnea, unspecified; E78.5 Hyperlipidemia, unspecified; I10 Essential (primary) hypertension; M10.9 Gout, unspecified; G47.33 Obstructive sleep apnea (adult) (pediatric); G47.61 Periodic limb movement disorder; E66.01 Morbid (severe) obesity due to excess calories; Z68.41 Body mass index [BMI] 40.0-44.9, adult; Z99.89 Dependence on other enabling machines and devices; Z79.899 Other long term (current) drug therapy; Z87.891 Personal history of nicotine dependence
CPT/HCPCS: 45385; 45380; 43239; 43236; 88305; 88342

== ENCOUNTER → 2022-12-22 09:40 | Outpatient (BNVA) | payer OTHER, SELFPAY | PROVIDERS: PCP Nurse Practitioner Family; Visit Provider Internal Medicine Gastroenterology | DX: K21.9 Gastro-esophageal reflux disease without esophagitis (principal); K76.0 Fatty (change of) liver, not elsewhere classified; E66.01 Morbid (severe) obesity due to excess calories; Z86.010 Personal history of colon polyps; Z68.41 Body mass index [BMI] 40.0-44.9, adult | CPT/HCPCS: 99212 ==

== ENCOUNTER 2023-01-18 14:57 | Outpatient (REF) | payer OTHER, SELFPAY ==
--- NOTE | ~2023-01-18 | US_ITS ---
EXAMINATION: US RETROPERITONEAL LIMITED (RENAL ONLY) CLINICAL INFORMATION: Kidney cyst. COMPARISON: Ultrasound abdomen complete 12/17/2020. TECHNIQUE: Real-time imaging of the kidneys. FINDINGS: RIGHT KIDNEY: 14.7 x 6.1 x 6.0 cm (SAG x AP x TRV). The kidney is normal in size, contour, and echogenicity. Renal cortical thickness is normal. No renal calculi or hydronephrosis. Benign-appearing renal cyst measuring 1 cm. No follow up imaging is recommended. LEFT KIDNEY: 11.5 x 5.7 x 5.7 cm (SAG x AP x TRV). The kidney is normal in size, contour, and echogenicity. Renal cortical thickness is normal. No renal calculi or hydronephrosis. Benign-appearing renal cysts measuring up to 1.6 cm. No follow-up imaging is recommended. US/US renal BI IMPRESSION: Benign-appearing bilateral renal cysts measuring up to 1.6 cm. No follow up imaging is recommended.
== END 2023-01-18 14:58 | disposition home or self-care (01) ==
LOC: HO.US 14:57
PROVIDERS: PCP Nurse Practitioner Family; Visit Provider Urology
DX: N28.1 Cyst of kidney, acquired (principal)
CPT/HCPCS: 76775

== ENCOUNTER 2023-02-03 11:07 | Outpatient (AMB) | payer OTHER, SELFPAY ==
--- NOTE | 2023-02-03 11:31 | A.OFFVIS_ITS ---
Intake Intake Visit Reasons: US Follow Up(set) Intake Note: Patient is present for Follow Up Urology Med: None Antibiotic Allergy: None Blood Thinner: None Pharmacy: [facility] Allergies No Known Allergies [No Known Allergies*] Allergy (Verified 02/03/23 11:34) HPI HPI Comments History of Present Illness Details Tyrese is a pleasant male. He is seen for the following urologic issues - renal cyst Stable cyst - no follow-up recommended Trial tamsulosin - 2 month follow-up Lower urinary tract symptoms Hesitancy weakness of stream Progressive No prior therapy Trial alpha-bryan and bladder ultrasound Renal cyst Detected during recent abdominal imaging Imaging - 02/06 1.7 cm left renal cyst on ultrasound - 02/08 renal ultrasound bilateral 1-2 cm cysts - no follow-up recommended by Radiology Natural history of renal cyst discussed P.r.n. follow-up [facility] Medical History Cyst of left kidney Dyspnea GERD without esophagitis Gout Hyperlipidemia Hypertension Limb swelling Morbid obesity with BMI of 40.0-44.9, adult NAFL (nonalcoholic fatty liver) DESIREE (obstructive sleep apnea) PLMD (periodic limb movement disorder) Surgical History History of colonoscopy Hx of endoscopy Hx of total knee replacement Family History Father Family history of high blood pressure Mother Hx of rheumatoid arthritis Social History Household Members: Spouse Housing: House Alcohol intake: current Alcohol intake frequency: former alcohol drinker Patient Tobacco Use Status: Former Tobacco user Quit Date: 45 yrs ago Tobacco use type: Cigarette Years Smoked: 5 years e-Cigarette/Vaping Use: Never Used Second Hand Smoke Exposure: No Current occupational status: retired Current occupation: rt hand Cognitive needs: No Hearing needs: No Vision needs: Yes Review of Systems Const Denies chills and Denies fever(s) Card Reports no additional complaints and Denies syncope Resp Denies cough GI Denies abdominal pain and Denies heartburn Reports as per HPI and Denies change in libido Neuro Denies syncope Psych Denies change in libido Endo Denies change in libido Physical Exam Const General: cooperative, healthy appearing, comfortable and no acute distress Orientation/consciousness: patient oriented x3 HEENT Face and sinus: Yes normal facial exam Mouth: moist mucous membranes Neck Neck: Yes normal visual inspection, Yes full ROM and Yes trachea midline Chest Chest palpation & inspection: normal inspection of the chest Resp Effort & Inspection: normal respiratory effort, able to speak in complete sentences and no respiratory distress GI Inspection: Yes normal to inspection Back/Spine/Pelvis Cervical Spine: normal cervical lordosis Thoracic/Lumbar Spine: thoracic and lumbar spine normal to inspection Skin General skin exam: no rashes or lesions noted Neuro General: patient oriented x3, gait normal, tone normal and moves all extremities Extrem General: Yes normal to inspection and Yes capillary refill normal Assessment & Plan Assessment & Plan (1) Bladder outlet obstruction: Code(s): N32.0 - Bladder-neck obstruction Plan Trial tamsulosin Orders: Orders US bladder Today N32.0 - Bladder-neck obstruction, R39.12 - Poor urinary stream Medications: New tamsulosin 0.4 mg PO BEDTIME 30 days 30 caps 1RF N32.0 - Bladder-neck obstruction, N40.1 - Benign prostatic hyperplasia with lower urinary tract symptoms, R35.1 - Nocturia Patient Instructions: Imaging studies, laboratory and physical exam results were discussed and reviewed in detail. No major barriers to patient understanding were identified. An opportunity to ask questions regarding the treatment plan was provided. All questions were answered. The patient expressed understanding and agreement with the above treatment plan. The patient is aware they should contact our office by phone for worsening of their current condition or the appearance of new urologic symptoms. Compliance is encouraged with any medications and followup testing that is ordered. It is a privilege to participate in the urologic care of your patient. If you have any questions or concerns regarding treatment for the above conditions, or other urologic issues, please do not hesitate to contact me. The office telephone contact is [phone]. This note is constructed using voice recognition software. While every effort has been made to ensure accuracy diesel power shovel operator errors may have been included. Yours sincerely, Dr Mark Marie MD, [facility] - Urology Providers of Expert, Compassionate Care for the Genitourinary System Coding Level of Care Code Est Pt Level 4 (25073) Diagnoses Bladder outlet obstruction N32.0
== END 2023-02-03 12:16 | disposition home or self-care (01) ==
PROVIDERS: PCP Nurse Practitioner Family; Visit Provider Urology
DX: N32.0 Bladder-neck obstruction (principal)
CPT/HCPCS: 99214

== ENCOUNTER → 2023-02-03 11:07 | Outpatient (BNVA) | payer OTHER, SELFPAY | PROVIDERS: PCP Nurse Practitioner Family; Visit Provider Urology | DX: N32.0 Bladder-neck obstruction (principal) | CPT/HCPCS: 99212 ==

== ENCOUNTER 2023-02-27 13:59 | Outpatient (AMB) | payer OTHER, SELFPAY ==
[2023-02-27 14:11] VITALS: PULSE 60; O2SAT 96; BMI 44.0
--- NOTE | 2023-02-27 14:11 | A.OFFVIS_ITS ---
Intake Vital Signs 02/27/23 14:11 Height 5 ft 9 in Weight 298 lb BMI 44.0 Pulse 60 Pulse Source Pulse Oximeter Pulse Oximetry (%) 96 Oxygen Delivery Method Room Air Intake Visit Reasons: Sleep apnea Encyclopedia Research Worker Required: No Allergies No Known Allergies [No Known Allergies*] Allergy (Verified 02/27/23 14:12) HPI HPI Comments History of Present Illness Details The patient is a 72-year-old gentleman with morbid obesity and severe obstructive sleep apnea. He had a sleep study back in 2018 demonstrating an AHI of 82 events an hour with significant desaturation. The patient had a titration study was subsequently placed on PAP. He has [email or web address] and had been using his PAP regularly. However, the patient had issues with compliance. He was also lost to follow-up. Therefore he was an active from his [email or web address] company. The patient however started using his PAP therapy again even though he does not have any new supplies she is because his symptoms were getting much worse. The patient has significant daytime drowsiness with an Cyril score of 14/24. Once he started using the PAP therapy his symptoms improved. However, he is not able to get any supplies from his [email or web address] company since he is inactive. The patient needs an urgent sleep study in order to get reactivated with his [email or web address] company at this time. In the meantime the patient complains of dyspnea on exertion. Moderate severity. He did have a workup including PFT which demonstrated a mild isolated diffusion impairment likely from underlying pulmonary vascular disease. The patient continues to have shortness of breath he denies any chest pains. He has not had an EKG. At least documented in our system since 2017. It demonstrated some nonspecific T-wave changes. He has not had a cardiac evaluation. 02/01/2021 the patient is here for a pul [facility] follow-up visit. The patient continues to have significant daytime drowsiness. He has been using CPAP for many years with significant improvement. His current settings on CPAP his AHI was still 15. The patient is no longer active with a [email or web address] company. Therefore we had him him repeat home sleep study demonstrating an AHI 42. Patient understands that he has severe sleep apnea. He does state that he did have a titration study couple years ago and after that his CPAP was adjusted and has helped. Therefore, this point will request a BiPAP to be initiated for the patient to treat his severe sleep apnea. I did contact the local [email or web address] company in order to do so. Once he is on BiPAP will be able to adjusted. If the BiPAP to having hard time adjusting to decrease his AHI then at that point they will be reasonable to have him have a repeat titration study. In the meantime he did have an abnormal EKG as he was having some chest discomfort. Still some nonspecific T-wave changes. He did undergo a cardiac stress echo which demonstrated no evidence of any ischemia which is reassuring. The patient continues with respiratory therapy. Will follow up in several weeks once he started his new BiPAP. 03/15/2021 the [facility]. The patient continues to struggle with his CPAP. the right his machine his AHI was significantly elevated at 15. We did try to get in touch with his [email or web address] company in order to change his CPAP to a BiPAP in view of his failing CPAP therapy. However, after no response from the [email or web address] company did call. Apparently the patient has been discontinued and he is considered in active with a [email or web address] company. Previously with [employer]. Therefore, the only way of getting him reactivated with a DME company will be with a repeat home sleep study. The patient does have an elevated Cyril score of 11 when he does not use CPAP. Although he is pretty compliant with the CPAP at this time. However, he is not getting any supplies and he has been using the same supplies now apparently for years. Therefore we need to get him a sleep study in order to be able to address his needs. 08/27/2021 the patient is here for a pul onary follow-up visit. Overall the patient has been doing about the same. Continues to have daytime drowsiness. He did have a repeat sleep study which initially demonstrating an AHI of 8.7. He was titrated on CPAP and he was able to be stabilized on CPAP of 11 cm. His oxygenation also improved. He has significant REM during the sleep study suggesting that he was getting appropriate sleep. Therefore, will continue with his current CPAP although will adjust his CPAP settings to accurately meet his needs. Based on his persistent sleep apnea will see about getting him reactivated with his DME company. 11/30/2021 the patient is here for a pulmonary follow-up visit. Overall the patient is doing well. He is tolerating his nasal cradle mask well. He did bring his PAP therapy in. Appears to have a VPAP auto. seems to be responding well to the current therapy. His AHI appears to be between 4-8 events an hour. Although half of the events appeared to be central. Explained to the patient that he has a complex sleep apnea. If we aggressively treat the obstructive component we can always worsen the central component. Therefore decrease the pressure some. But more than that I am concerned that he has significant air leak primarily because the mouth being open. He does like his nasal n30 mask. I did provide him with a chinstrap. I will also request a chinstrap from his [email or web address] company. He will return in 3 months and bring his machine to further adjusted. I am hopeful that he continues to do well and we can try to decrease the central apneas further. From a respiratory status the patient is doing well denies any chest pains or any shortness of breath. He does not use any inhalers. He does have allergies at this time. Does have nasal congestion and a postnasal drip. [id number] severity. 02/28/2022 the patient is here for a pulm onary follow-up visit. Overall he is doing well. He has switch over to a nasal mask because the cradle in the pillows were not effective for him. However, he does not always use the chinstrap. He does complaint of a dry mouth. Urine he has some gingival disease and some to DKA. We talked about the importance of maintaining good do interval hygiene by avoiding dry mouth. Explained to him that this is primarily due to the Armin gaping through his mouth when he is using the nasal mask. I did highly recommend he go for fullface mask. I did have a large F20 mask available for him. I will also submit 1 to his [email or web address] company. Current the PAP settings are good. His AHI is down to 1.6 events an hour. Therefore will continue with current settings. From a respiratory status is doing okay. He has been increased dyspnea on exertion. Mild in severity. Although he does came back from vacation and he had lot of dietary indiscretion. He did note some lower extremity edema and also started developing gout-like symptoms. 08/29/2022 the patient is here for a pulm onary follow-up visit. Overall the patient has been doing okay. He continues to use his PAP therapy. His AHI continuesis better, AHI 2.6.. This overall is better than before. The patient does have a nasal mask. We had requested an N20 mask back in August through his DME, [employer]. But they have yet to provide the right mask. I did provide him another sample to help him continue to tolertae the therapy. I will request again the N20 mask. He is having issue with his teeth, He does have an air racheal kage through the mouth. He needs to use the chadwick strap more regularly. He has noticed some increase LE edema. We did talk about starting a low sodium diet. [facility] Medical History Cyst of left kidney Dyspnea GERD without esophagitis Gout Hyperlipidemia Hypertension Limb swelling Morbid obesity with BMI of 40.0-44.9, adult NAFL (nonalcoholic fatty liver) DESIREE (obstructive sleep apnea) PLMD (periodic limb movement disorder) Surgical History History of colonoscopy Hx of endoscopy Hx of total knee replacement Family History Father Family history of high blood pressure Mother Hx of rheumatoid arthritis Social History Household Members: Spouse Housing: House Alcohol intake: current Alcohol intake frequency: former alcohol drinker Patient Tobacco Use Status: Former Tobacco user Quit Date: 45 yrs ago Tobacco use type: Cigarette Years Smoked: 5 years e-Cigarette/Vaping Use: Never Used Second Hand Smoke Exposure: No Current occupational status: retired Current occupation: rt hand Cognitive needs: No Hearing needs: No Vision needs: Yes Review of Systems Const Denies chills and Denies fever(s) Eyes Denies blurry vision ENT Reports Normal hearing present, Denies vertigo, Denies dizziness, Reports dry mouth, Reports nasal congestion, Reports nasal discharge and Denies sore throat Card Denies chest pain at rest, Denies chest pain with activity, Denies diaphoresis, Reports leg edema, Denies dyspnea and Denies dyspnea on exertion Resp Reports cough, Denies dyspnea, Denies dyspnea on exertion and Denies wheezing GI Denies abdominal pain, Denies melena, Denies hematochezia, Denies constipation, Denies diarrhea and Denies loose stools Denies hematuria Musc Reports arthralgias, Reports joint swelling, Reports limited range of motion and Denies tingling Skin/Breast Denies lesions Neuro Reports Normal hearing present, Denies Abnormal speech present, Denies vertigo, Denies dizziness and Denies tingling Psych Denies anxiety, Denies depression, Denies homicidal ideation, Denies suicidal ideation and Denies other (substance abuse) Aller/Immun Denies wheezing Physical Exam Vital Signs: Last Vital Signs Pulse 60 02/27/23 14:11 Pulse Ox 96 02/27/23 14:11 Oxygen Delivery Method Room Air 02/27/23 14:11 BMI result Body Mass Index 44.0 Const General: healthy appearing and no acute distress Nutritional Appearance: average body habitus Orientation/consciousness: patient oriented x3 Limitations: no limitations HEENT Head: Yes normal to inspection Ears: hearing grossly normal bilaterally Mouth: Normal oral and palatal mucosa present Eyes Sclerae: sclerae normal Pupils: Equal, round and reactive pupils present Neck Neck: Yes normal visual inspection Chest Chest palpation & inspection: normal inspection of the chest Resp Effort & Inspection: normal respiratory effort Auscultation: clear to auscultation bilaterally Cardio Palpation: normal PMI Rate: regular rate Rhythm: regular rhythm Heart sounds: S1 normal heart sound present, S2 normal heart sound present and no murmurs GI Palpation (GI): Soft to palpation, nontender and No hepatosplenomegaly present Auscultation: normal bowel sounds Rectal Exam - Male: Yes deferred Skin General skin exam: no rashes or lesions noted Neuro General: patient oriented x3, gait normal and moves all extremities Cranial nerves: Yes Equal, round and reactive pupils present and Yes Normal hearing present Speech: No Abnormal speech present Extrem General: Yes edema Psych Appearance: grossly normal Mental Status: mental status grossly normal Assessment & Plan Assessment & Plan (1) DESIREE (obstructive sleep apnea): Comment: continue autoVPAP Code(s): G47.33 - Obstructive sleep apnea (adult) (pediatric) (2) Dyspnea: Code(s): R06.00 - Dyspnea, unspecified Qualifiers: Dyspnea type: dyspnea on exertion Qualified Code(s): R06.00 - Dyspnea, unspecified (3) Limb swelling: Code(s): M79.89 - Other specified soft tissue disorders (4) PLMD (periodic limb movement disorder): Code(s): G47.61 - Periodic limb movement disorder Plan Continue VPAP auto, maximum pressure /. Will request medium N20 mask again, DME Bon[facility] May benefit from Gabapentin for PLMD continue Flonase' Low sodium diet PFTs/CXR not sone F/U 10-12 months Medications: New doxycycline monohydrate 100 mg PO BID 14 days 28 tabs 0RF Coding Level of Care Code Est Pt Level 4 (25291) Diagnoses DESIREE (obstructive sleep apnea) G47.33 Dyspnea on exertion R06.00 Dyspnea type: dyspnea on exertion Limb swelling M79.89 PLMD (periodic limb movement disorder) G47.61 Time Spent (min) 18
== END 2023-02-27 14:42 | disposition home or self-care (01) ==
PROVIDERS: PCP Nurse Practitioner Family; Visit Provider Hospitalist
DX: G47.33 Obstructive sleep apnea (adult) (pediatric) (principal); R06.00 Dyspnea, unspecified; M79.89 Other specified soft tissue disorders; G47.61 Periodic limb movement disorder
CPT/HCPCS: 99214

== ENCOUNTER → 2023-02-27 13:59 | Outpatient (BNVA) | payer OTHER, SELFPAY | PROVIDERS: PCP Nurse Practitioner Family; Visit Provider Hospitalist | DX: G47.33 Obstructive sleep apnea (adult) (pediatric) (principal); G47.61 Periodic limb movement disorder; R06.00 Dyspnea, unspecified; M79.89 Other specified soft tissue disorders | CPT/HCPCS: 99212 ==

== ENCOUNTER 2023-04-10 15:38 | Outpatient (REF) | payer OTHER, SELFPAY ==
--- NOTE | ~2023-04-10 | US_ITS ---
EXAMINATION: US PELVIS LIMITED (BLADDER) CLINICAL INFORMATION: Poor urinary stream. COMPARISON: Renal ultrasound 01/18/2023. Ultrasound abdomen complete 12/17/2020. TECHNIQUE: Real-time imaging of the bladder. FINDINGS: BLADDER: Well distended and normal. Bilateral ureteral jets are not demonstrated. Prevoid bladder volume is 163 mL. Postvoid bladder volume is 4 mL. ADDITIONAL FINDINGS: Prostate volume of 71 mL. US/US bladder IMPRESSION: 1. No significant post void residual volume. 2. Enlarged prostate.
== END 2023-04-10 15:39 | disposition home or self-care (01) ==
LOC: HO.US 15:38
PROVIDERS: PCP Nurse Practitioner Family; Visit Provider Urology
DX: R39.12 Poor urinary stream (principal); N32.0 Bladder-neck obstruction
CPT/HCPCS: 76857

== ENCOUNTER 2023-04-12 10:04 | Outpatient (AMB) | payer OTHER, SELFPAY ==
--- NOTE | 2023-04-12 10:05 | A.OFFPC_ITS ---
Vital Signs 04/12/23 10:07 Height 5 ft 9 in Weight 301 lb 6 oz BMI 44.5 BP 114/66 Blood Pressure Location Lt brachial Position Sitting Pulse 73 Pulse Source Pulse Oximeter Pulse Oximetry (%) 95 Oxygen Delivery Method Room Air Intake Visit Reasons: 6 month follow up ( Meds) Allergies No Known Allergies [No Known Allergies*] Allergy (Verified 04/12/23 10:09) Medication List - Last Reconciled 04/12/23 by CRESENCIO Pak allopurinol 200 mg (2 x 100 mg) PO BID atenolol 100 mg (2 x 50 mg) PO DAILY cholecalciferol (vitamin D3) 250 mcg PO DAILY CPAP (CPAP Machine/Device) As directed escitalopram oxalate 10 mg PO DAILY fluticasone propionate 50 mcg/actuation 1 spray intranasal BID 30 days ibuprofen 600 mg PO Q8H PRN indomethacin 50 mg PO BID PRN 30 days omeprazole 40 mg PO BID oxcarbazepine 300 mg PO BID tamsulosin 0.4 mg PO BEDTIME 30 days Tobacco use date assessed: 04/12/23 Fall risk assessment: No Falls in past year Last assessed Fall Risk: 04/12/23 HPI 6 month follow up ( Meds) HPI Details HTN: Blood pressure is stable, managed with atenolol 100mg. Denies current chest pain, shortness of breath, headache, dizziness, and blurred vision. Will have pt monitor his BP at home. Pt reports an episode of right upper chest discomfort a couple weeks ago. He reports that the pain did not radiate anywhere. Will do an EKG in office. Pt follows up with urology, though I will order a PSA. Denies dribbling with urination, weak stream, and frequent nocturia. Pt is also following up with GI. [facility] Medical History (Updated 04/12/23 @ 10:33 by CRESENCIO Pak) Hypertension Dyspnea PLMD (periodic limb movement disorder) Morbid obesity with BMI of 40.0-44.9, adult NAFL (nonalcoholic fatty liver) Cyst of left kidney Limb swelling DESIREE (obstructive sleep apnea) Hyperlipidemia Gout GERD without esophagitis Surgical History Hx of total knee replacement Hx of endoscopy History of colonoscopy Family History Father Family history of high blood pressure Mother Hx of rheumatoid arthritis Social History Household Members: Spouse Housing: House Alcohol intake: current Alcohol intake frequency: former alcohol drinker Patient Tobacco Use Status: Former Tobacco user Quit Date: 45 yrs ago Tobacco use type: Cigarette Years Smoked: 5 years e-Cigarette/Vaping Use: Never Used Second Hand Smoke Exposure: No Current occupational status: retired Current occupation: rt hand Cognitive needs: No Hearing needs: No Vision needs: Yes Questionnaire Thrive Questionnaire Date Thrive assessed: 11/23/21 AUDIT C Alcohol Use Questionnaire (AUDIT-C) 1. How often do you have a drink containing alcohol?: Never 3. How often do you have six or more drinks on one occasion?: Never Total Score: 0 MAREK-7 AMB Questionnaire MAREK-7 Date MAREK - 7 assessed: 11/23/21 Feeling nervous, anxious, or on edge: 2 = More than half the days Not being able to stop or control worryin = Not at all Worrying too much about different things: 2 = More than half the days Trouble relaxin = Not at all Being so restless that it is hard to sit still: 0 = Not at all Becoming easily annoyed or irritable: 0 = Not at all Feeling afraid as if something awful might happen: 1 = Several days Total MAREK-7 score (0-4 normal; 5-9 mild; 10-14 moderate; 15-21 severe): 5 Source: Developed by Drs. Patrick Wilson, Kriss Garza, Tom Juárez and colleagues, with an educational awilda from [employer]. MAREK-7 Assessment Billing MAREK-7 Assessment Tool: MAREK-7 Assessment [id number] Review of Systems Const Reports as per HPI Physical exam (Primary Care) Vital Signs: Last Vital Signs Pulse 73 04/12/23 10:07 BP 114/66 04/12/23 10:07 Pulse Ox 95 04/12/23 10:07 Oxygen Delivery Method Room Air 04/12/23 10:07 BMI result Body Mass Index 44.5 Tobacco/Smoking Status: Tobacco use Status Tobacco use date assessed 04/12/23 04/12/23 10:10 Patient Tobacco Use Status Former Tobacco user 04/12/23 10:10 Tobacco use type Cigarette 04/12/23 10:10 e-Cigarette/Vaping Use Never Used 04/12/23 10:10 Thrive Assessment: Date of Thrive Assessment Date Thrive assessed 11/23/21 04/12/23 10:10 Const General: cooperative Nutritional Appearance: obese morbidly obese Orientation/consciousness: patient oriented x3 Resp Effort & Inspection: normal respiratory effort Auscultation: clear to auscultation bilaterally Cardio Rate: regular rate Rhythm: regular rhythm Heart sounds: S1 normal heart sound present and S2 normal heart sound present Skin Other: skin lesions noted to BUE, dorsal aspect of hands and forearms with macular papular skin colored lesions, papular lesion to right posterior facial cheek Neuro General: patient oriented x3 Psych Appearance: grossly normal Mental Status: mental status grossly normal Speech and movement: Normal speech and movement present Affect: normal affect Attitude: cooperative Thought process: Normal thought process present Thought content: Normal thought content present Insight: Good insight present (Psych) Judgement: Good judgement present (Psych) Assessment and Plan Assessment & Plan (1) History of colon polyps: Comment: 03/2021 Colonoscopy: Three medium sized polyps removed - one polyp was retieved - TA on bx Mild hemorrhoids on retroflexed exam. Plan: Repeat Colonoscopy interval based on path results - in 1-2 years if polyps are adenomatous and due to suboptimal prep in the cecum. 04/2018 colonoscopy was performed by Dr. Weber and 5 small adenomatous polyps were removed Repeat colonoscopy is due in 3 years - due in 04/2021. Code(s): Z86.010 - Personal history of colonic polyps (2) Screening PSA (prostate specific antigen): Code(s): Z12.5 - Encounter for screening for malignant neoplasm of prostate Plan: PSA ordered (3) Hypertension: Code(s): I10 - Essential (primary) hypertension Plan: Labs ordered (4) Skin lesions: Code(s): L98.9 - Disorder of the skin and subcutaneous tissue, unspecified Plan: Referred to derm (5) Chest discomfort: Code(s): R07.89 - Other chest pain Plan The patient agreed to the use of a medical supervisor for this encounter. Scribed for CRESENCIO Chen by Dot Gauthier medical supervisor, on 04/12/2023 at 10:20 EST Orders: Orders Comprehensive [place]. Panel Fast Today I10 - Essential (primary) hypertension TSH reflex Free T4 Today I10 - Essential (primary) hypertension UA CC w/rflx Micro + Cult Today I10 - Essential (primary) hypertension AMB EKG-In Office Today R07.89 - Other chest pain Prostate Specific Antigen Scr Today Z12.5 - Encounter for screening for malignant neoplasm of prostate Complete Blood Count Auto Diff Today I10 - Essential (primary) hypertension Lipid Panel Today I10 - Essential (primary) hypertension Referrals Dermatology Referral L98.9 - Disorder of the skin and subcutaneous tissue, unspecified Coding Level of Care Code Est Pt Level 3 (67472) Diagnoses History of colon polyps Z86.010 Screening PSA (prostate specific antigen) Z12.5 Hypertension I10 Skin lesions L98.9 Chest discomfort R07.89 Additional Codes MAREK-7 Assessment Billing - MAREK-7 Assessment Tool: MAREK-7 Assessment [id number] ([id number])
[2023-04-12 10:07] VITALS: BP 114/66; PULSE 73; O2SAT 95; BMI 44.5
== END 2023-04-12 14:25 | disposition home or self-care (01) ==
PROVIDERS: PCP Nurse Practitioner Family; Visit Provider Nurse Practitioner Family
DX: Z86.010 Personal history of colon polyps (principal); Z12.5 Encounter for screening for malignant neoplasm of prostate; I10 Essential (primary) hypertension; L98.9 Disorder of the skin and subcutaneous tissue, unspecified; R07.89 Other chest pain
CPT/HCPCS: 99213

== ENCOUNTER 2023-04-22 09:51 | Outpatient (REF) | payer OTHER, SELFPAY ==
[2023-04-22 10:06] LABS: MANUAL DIFF FLAG NO
[2023-04-22 11:17] LABS: Basophils Absolute Auto 0.1 X10*3/uL (0.0-0.2); Basophils Percent Auto 0.9 % (0-2); Eosinophils Absolute Auto 0.1 X10*3/uL (0.0-0.4); Eosinophils Percent Auto 1.4 % (0-4); Hematocrit 47.5 % (42.0-52.0); Hemoglobin 15.6 g/dl (14.0-18.0); Imm Gran Abs Auto 0.03 X10*3/uL (0.00-0.03); Imm Gran Pct Auto 0.5 % (0.0-0.4); Lymphocytes Absolute Auto 1.4 X10*3/uL (1.2-4.9); Lymphocytes Percent Auto 21.5 % (20-40); Mean Corpuscular HGB Conc 32.8 g/dl (31.0-36.0); Mean Corpuscular Hemoglobin 28.4 pg (27.0-33.0); Mean Corpuscular Volume 86.4 fL (80.0-98.0); Mean Platelet Volume 10.6 fL (9.4-12.4); Monocytes Absolute Auto 0.4 X10*3/uL (0.1-1.2); Monocytes Percent Auto 6.2 % (2-11); Neutrophils Absolute Auto 4.5 x10*3/uL (2.0-8.3); Neutrophils Percent Auto 69.5 % (45-73); Platelet Count 248 X10*3/uL (160-400); Red Cell Distribution Width 13.6 % (11.0-16.0); White Blood Count 6.5 X10*3/uL (4.8-10.8)
[2023-04-22 11:20] LABS: Appearance Urine Clear; Color Urine Yellow; Glucose Urine UA Negative (Negative); Leukocyte Esterase Urine Negative (Negative); Nitrite Urine Negative (Negative); PH 5.5 (5.0-9.0); UMIC TRIGGER UACC YES; Urine Blood Negative (Negative); Urine Ketones Negative (Negative); Urine Protein 30 (1+) mg/dL (Neg-Trace)
[2023-04-22 11:27] LABS: Bacteria Urine None Seen (None Seen); Hyaline Casts Urine 0-2 /LPF (0-2); Squamous Epithelial Cell Urine 0-2 /HPF (0-2); WBC Urine 0-5 /HPF (0-5)
[2023-04-22 12:07] LABS: Alanine Aminotransferase 37 U/L (0-40); Albumin Level 4.5 g/dL (3.5-5.0); Alkaline Phosphatase 62 U/L (39-117); Anion Gap 13 (12-20); Aspartate Amino Transferase 28 U/L (5-37); Bilirubin Total 0.6 mg/dL (0.0-1.0); Blood Urea Nitrogen 13 mg/dL (9-16); Calcium 9.7 mg/dL (8.4-10.2); Carbon Dioxide 26 mmol/L (22-29); Chloride 105 mmol/L (96-108); Cholesterol 173 mg/dL (<200); Estimated Glomerular Filt Rate > 60; Glucose Fasting 93 mg/dL (60-99); HDL Cholesterol 36 mg/dL (>40); LDL Cholesterol Calculated 104 mg/dL (<100); Potassium 4.4 mmol/L (3.3-5.1); Sodium 140 mmol/L (135-145); Total Protein 7.7 g/dL (6.5-8.0); Triglycerides 165 mg/dL (<150)
[2023-04-22 12:11] LABS: Prostate Specific Antigen Scr 1.36 ng/mL (<0.05-4.0)
[2023-04-22 12:13] LABS: TSH reflex Free T4 1.07 uIU/mL (0.32-4.0)
== END 2023-04-22 09:52 | disposition home or self-care (01) ==
LOC: HO.LAB 09:51
PROVIDERS: PCP Nurse Practitioner Family; Visit Provider Nurse Practitioner Family
DX: I10 Essential (primary) hypertension (principal); Z12.5 Encounter for screening for malignant neoplasm of prostate
CPT/HCPCS: 36415; 80053; 80061; 81001; 84153; 84443; 85025

== ENCOUNTER 2023-05-23 11:16 | Outpatient (AMB) | payer OTHER, SELFPAY ==
--- NOTE | 2023-05-23 11:30 | MHC.OFFVIS ---
Intake Intake Visit Reasons: 2M US(set) Intake Note: Patient is Present for Telephone Follow Up Urology Med: Tamsulosin Antibiotic Allergy: None Blood Thinner: None Allergies No Known Allergies [No Known Allergies*] Allergy (Verified 04/12/23 10:09) Medication List - Last Reconciled 05/23/23 by Mark Marie MD allopurinol 200 mg (2 x 100 mg) PO BID atenolol 100 mg (2 x 50 mg) PO DAILY cholecalciferol (vitamin D3) 250 mcg PO DAILY CPAP (CPAP Machine/Device) As directed escitalopram oxalate 10 mg PO DAILY fluticasone propionate 50 mcg/actuation 1 spray intranasal BID 30 days ibuprofen 600 mg PO Q8H PRN indomethacin 50 mg PO BID PRN 30 days omeprazole 40 mg PO BID oxcarbazepine 300 mg PO BID tamsulosin 0.4 mg PO BEDTIME 90 days HPI HPI Comments History of Present Illness Details Tyrese is a pleasant male. He is seen for the following urologic issues - renal cyst Telemedicine Evaluation 15 min Consultation [email or web address] Diony Video attempted Good response to daily tamsulosin Better voiding control Would like to continue Prescription provided 6 month follow-up PVR Stable renal cyst - no follow-up recommended Lower urinary tract symptoms Hesitancy weakness of stream Progressive symptoms Good response to tamsulosin Bladder ultrasound 02/08 low PVR, 70 g prostate Renal cyst Detected during recent abdominal imaging Imaging - 02/06 1.7 cm left renal cyst on ultrasound - 02/08 renal ultrasound bilateral 1-2 cm cysts - no follow-up recommended by Radiology Natural history of renal cyst discussed PFSH Medical History Hypertension Dyspnea PLMD (periodic limb movement disorder) Morbid obesity with BMI of 40.0-44.9, adult NAFL (nonalcoholic fatty liver) Cyst of left kidney Limb swelling DESIREE (obstructive sleep apnea) Hyperlipidemia Gout GERD without esophagitis Surgical History Hx of total knee replacement Hx of endoscopy History of colonoscopy Family History Father Family history of high blood pressure Mother Hx of rheumatoid arthritis Social History Household Members: Spouse Housing: House Alcohol intake: current Alcohol intake frequency: former alcohol drinker Patient Tobacco Use Status: Former Tobacco user Quit Date: 45 yrs ago Tobacco use type: Cigarette Years Smoked: 5 years e-Cigarette/Vaping Use: Never Used Second Hand Smoke Exposure: No Current occupational status: retired Current occupation: rt hand Cognitive needs: No Hearing needs: No Vision needs: Yes Review of Systems Const All systems reviewed & are unremarkable except as noted in HPI and below Reports no additional complaints Resp Reports no additional complaints GI Reports no additional complaints Reports as per HPI Musc Reports no additional complaints Physical Exam Telemedicine evaluation Appropriate responses Regular breathing rate and rhythm HEENT Head: Yes normal to inspection Ears: hearing grossly normal bilaterally Eyes General: appearance normal, both eyes and all related structures Neck Neck: Yes normal visual inspection Chest Chest palpation & inspection: normal inspection of the chest Resp Effort & Inspection: normal respiratory effort and able to speak in complete sentences Assessment & Plan Assessment & Plan (1) Bladder outlet obstruction: Code(s): N32.0 - Bladder-neck obstruction Plan 6 month follow-up PVR Medications: Changed From tamsulosin 0.4 mg PO BEDTIME 30 caps 1RF 30 days N32.0 - Bladder-neck obstruction To tamsulosin 0.4 mg PO BEDTIME 90 caps 1RF 90 days N32.0 - Bladder-neck obstruction Patient Instructions: Imaging studies, laboratory and physical exam results were discussed and reviewed in detail. No major barriers to patient understanding were identified. An opportunity to ask questions regarding the treatment plan was provided. All questions were answered. The patient expressed understanding and agreement with the above treatment plan. The patient is aware they should contact our office by phone for worsening of their current condition or the appearance of new urologic symptoms. Compliance is encouraged with any medications and followup testing that is ordered. It is a privilege to participate in the urologic care of your patient. If you have any questions or concerns regarding treatment for the above conditions, or other urologic issues, please do not hesitate to contact me. The office telephone contact is [phone]. This note is constructed using voice recognition software. While every effort has been made to ensure accuracy orthodontic treatment coordinator errors may have been included. Yours sincerely, Dr Mark Marie MD, [facility] - Urology Providers of Expert, Compassionate Care for the Genitourinary System Telehealth Telehealth Location of provider rendering services: practice address Location of patient: address on file Patient Identification confirmed using: Name, : Yes Telehealth method: video Patient verbally consented to treatment: Yes Patient verbally consented to billing insurance company: Yes Patient informed of any privacy concerns related to visit: Yes Coding Level of Care Code Tele Est Pt Level 3 (81380) Diagnoses Bladder outlet obstruction N32.0
== END 2023-05-23 11:55 | disposition home or self-care (01) ==
LOC: HO.HUSH 11:17
PROVIDERS: PCP Nurse Practitioner Family; Visit Provider Urology
DX: N32.0 Bladder-neck obstruction (principal)
CPT/HCPCS: 99213

== ENCOUNTER → 2023-05-23 11:16 | Outpatient (BNVA) | payer OTHER, SELFPAY | PROVIDERS: PCP Nurse Practitioner Family; Visit Provider Urology ==

== ENCOUNTER 2023-09-14 07:20 | Outpatient (AMB) | payer OTHER, SELFPAY ==
--- NOTE | 2023-09-14 07:29 | A.OFFVIS_ITS ---
Intake Vital Signs 09/14/23 07:33 Height 5 ft 9 in Weight 299 lb BMI 44.1 BP 129/70 Blood Pressure Location Lt brachial Position Sitting Pulse 66 Intake Visit Reasons: 8 month f/u GERD, Obese, Fatty Liver Intake Note: Patient 8 month follow up for GERD, Obese, and fatty liver. Patient denies any GI issues. Cassandra Consultant Required: No Accompanied by: Self / Same As Patient Allergies No Known Allergies [No Known Allergies*] Allergy (Verified 04/12/23 10:09) HPI 8 month f/u GERD, Obese, Fatty Liver HPI Details GI clinic visit for this 73-year-old male for follow-up of GERD and colon polyps. ?LABS IN [facility]:?07/31/19 normal CBC, iron studies and LFTs, low normal vitamin B12 at 223 ?ENDOSCOPIC PROCEDURES: 10/14/22 EGD AND COLON SHOWED: Endoscopy Findings: STOMACH: Gastritis DUODENUM: Duodenal polyp Colonoscopy Findings: Two small and one medium sized polyps removed Moderate diverticulosis seen in the sigmoid colon Moderate hemorrhoids on retroflexed exam. Plan: Repeat Colonoscopy interval based on path results - in 3 years if polyps are adenomatous and 5 years if polyps are hyperplastic (due to a hx of adenomatous colon polyps). 03/20/21 EGD AND COLONOSCOPY SHOWED: STOMACH: Gastritis with a few erosions - Bx negative for HP DUODENUM: Normal - no recurrent duodenal polyp noted. Colonoscopy Findings:? Three medium sized polyps removed - one polyp was retrieved - TA on bx Mild hemorrhoids on retroflexed exam. Plan:? Repeat Colonoscopy interval based on path results - in 1-2 years if polyps are adenomatous and due to suboptimal prep in the cecum. EGD 06/2019 ? gastritis, ? esophageal nodule ?DIAGNOSIS ? A. Stomach, biopsies: Gastric mucosa with moderate to severe chronic, inactive ? gastritis; negative for Helicobacter pylori organisms; negative for intestinal metaplasia; negative for dysplasia. ? B. Esophagus, nodule, biopsy: Polypoid fragments of squamous epithelium with mild to moderate reactive features suggestive of chronic reflux; negative for dysplasia/malignancy. ? NOTE:? Special studies ordered and performed: Immunostain for Helicobacter pylori on A. ? Discussed santy pt that he needs a repeat EGD in 1 year- due to adenoma removal ? 04/2018 colonoscopy was performed by Dr. Weber and 5 small adenomatous polyps were removed ? Repeat colonoscopy is due in 3 years ?TODAY'S VISIT Past lab results reviewed. He is interested in seeing Bariatris surgery since he is unable to loose weight. EGD and colon results reviewed. Doing well - GERD is under control Taking Omeprazole less than 3 times a week. Continues to have intermittent problems with PND ?Seen by ENT 1 year ago and treated by the fire apparatus sprinkler inspector Did not follow up with allergy shots since it was a 3 yr treatment ? ? PAST VISIT: Lost 25 lbs and feeling better. Denies symptoms of heart burn and takes Omeprazole prn - usually every other week if he eats spicy food. Continues to have post nasal drips Discontinued allergy shots since they were not helping EGD and Colonoscopy results were reviewed with the patient. Continues to have PND x 2 yrs. Has been evaluated by ENT. Getting allergy shots and not very helpful in improving PND. Had acid regurgitation in the past and none at present. COVID free since since finished with quarantine ? ? Had mild symptoms - chills and ZHOU, loss of taste and smell ? ? Had his 2nd? COVID vaccine recently ? ? Continues to have post nasal drip and does not note any difference in his symptoms. ? ? Using Flonase and getting allergy shots. ?? ? Takes Indomethacine prn ? Doing very well with Omeprazole. ? Main concern is his post nasal drip. ? Saw ENT and is on allergy treatment - a shot every week x 1 year? for the past month. ? Dxed with allergy to dust mites. ? Notes heartburn once a week. ? Reflux symptoms well controlled with Omeprazole. ? Continues to have issues with post nasal drip for the past 3 months - bothering him too much. ? PND is getting worse and worse. ? Has to clear his throat frequently resulting in sore throat. ? Has been taking OTC anti allergy medications without relief. ? Saw an customer experience specialist a month ago and scheduled for a follow-up appointment in November. ? Had allergy testing done and showed allergy to mites. ? Patient denies change in bowel habits, black stools or?rectal bleeding [facility] Medical History Hypertension Dyspnea PLMD (periodic limb movement disorder) Morbid obesity with BMI of 40.0-44.9, adult NAFL (nonalcoholic fatty liver) Cyst of left kidney Limb swelling DESIREE (obstructive sleep apnea) Hyperlipidemia Gout GERD without esophagitis Surgical History Hx of total knee replacement Hx of endoscopy History of colonoscopy Family History Father Family history of high blood pressure Mother Hx of rheumatoid arthritis Social History Household Members: Spouse Housing: House Alcohol intake: current Alcohol intake frequency: former alcohol drinker Patient Tobacco Use Status: Former Tobacco user Quit Date: 45 yrs ago Tobacco use type: Cigarette Years Smoked: 5 years e-Cigarette/Vaping Use: Never Used Second Hand Smoke Exposure: No Current occupational status: retired Current occupation: rt hand Cognitive needs: No Hearing needs: No Vision needs: Yes Review of Systems Const All systems reviewed & are unremarkable except as noted in HPI and below Physical Exam Vital Signs: Last Vital Signs Pulse 66 09/14/23 07:33 BP 129/70 09/14/23 07:33 BMI result Body Mass Index 44.1 Const General: healthy appearing and no acute distress Nutritional Appearance: obese Orientation/consciousness: patient oriented x3 Limitations: no limitations HEENT Head: Yes normal to inspection Ears: hearing grossly normal bilaterally Eyes Sclerae: sclerae normal Pupils: Equal, round and reactive pupils present Neck Neck: Yes normal visual inspection Chest Chest palpation & inspection: normal inspection of the chest Resp Effort & Inspection: normal respiratory effort Auscultation: clear to auscultation bilaterally Cardio Palpation: normal PMI Rate: regular rate Rhythm: regular rhythm Heart sounds: S1 normal heart sound present, S2 normal heart sound present and no murmurs GI Inspection: Yes obesity Palpation (GI): Soft to palpation, nontender and No hepatosplenomegaly present Auscultation: normal bowel sounds Rectal Exam - Male: Yes deferred Skin General skin exam: no rashes or lesions noted Neuro General: patient oriented x3, gait normal and moves all extremities Cranial nerves: Yes Equal, round and reactive pupils present Psych Appearance: grossly normal Mental Status: mental status grossly normal Assessment & Plan Assessment & Plan (1) Adenomatous duodenal polyp: Comment: 09/2022 small polyp removed from duodenum and no adenomatous tissue was detected Code(s): D13.2 - Benign neoplasm of duodenum (2) History of colon polyps: Comment: 09/2022 Colonoscopy showed: Two small and one medium sized polyps removed Plan: Repeat Colonoscopy in 5 years due to a hx of adenomatous colon polyps. 03/2021 Colonoscopy: Three medium sized polyps removed - one polyp was retieved - TA on bx Mild hemorrhoids on retroflexed exam. Plan: Repeat Colonoscopy interval based on path results - in 1-2 years if polyps are adenomatous and due to suboptimal prep in the cecum. 04/2018 colonoscopy was performed by Dr. Weber and 5 small adenomatous polyps were removed Repeat colonoscopy is due in 3 years - due in 04/2021. Code(s): Z86.010 - Personal history of colonic polyps (3) Elevated liver enzymes: Comment: Likely due to fatty liver. Anticipate LFTs will improve with continued weight loss Code(s): R74.8 - Abnormal levels of other serum enzymes (4) GERD without esophagitis: Comment: Taking Omeprazole 40 mg prn every 1-2 weeks Code(s): K21.9 - Gastro-esophageal reflux disease without esophagitis (5) NAFL (nonalcoholic fatty liver): Code(s): K76.0 - Fatty (change of) liver, not elsewhere classified Plan 73-year-old male followed in GI for GERD. His GERD symptoms have improved after he lost weight and are well controlled with omeprazole 40 mg prn every 1-2 weeks. Patient has postnasal drip with frequent throat clearing which is persisting despite taking Flonase and getting allergy shots. Did not follow up with allergy shots since it was a 3 yr treatment Uses CPAP due for sleep apnea. 09/2022 upper endoscopy (GERD and FU of duodenal polyp) and Colonoscopy (FU of colon polyps) were performed and findings as noted above 12/22/22 Pt referred to Bariatric surgery - has seen the Potato Chip Packaging Machine Operator and continued to gain weight Fatty liver on imaging studies with normal LFTs. Follow-up appointment in 6 months. Coding Level of Care Code Est Pt Level 3 (07874) Diagnoses Adenomatous duodenal polyp D13.2 History of colon polyps Z86.010 Elevated liver enzymes R74.8 GERD without esophagitis K21.9 NAFL (nonalcoholic fatty liver) K76.0 Time Spent (min) 17
[2023-09-14 07:33] VITALS: BP 129/70; PULSE 66; BMI 44.1
== END 2023-09-14 07:53 | disposition home or self-care (01) ==
PROVIDERS: PCP Nurse Practitioner Family; Visit Provider Internal Medicine Gastroenterology
DX: D13.2 Benign neoplasm of duodenum (principal); Z86.010 Personal history of colon polyps; R74.8 Abnormal levels of other serum enzymes; K21.9 Gastro-esophageal reflux disease without esophagitis; K76.0 Fatty (change of) liver, not elsewhere classified
CPT/HCPCS: 99213

== ENCOUNTER → 2023-09-14 07:20 | Outpatient (BNVA) | payer OTHER, SELFPAY | PROVIDERS: PCP Nurse Practitioner Family; Visit Provider Internal Medicine Gastroenterology | DX: K21.9 Gastro-esophageal reflux disease without esophagitis (principal); K76.0 Fatty (change of) liver, not elsewhere classified; D13.2 Benign neoplasm of duodenum; R74.8 Abnormal levels of other serum enzymes; Z86.010 Personal history of colon polyps | CPT/HCPCS: 99212 ==

== ENCOUNTER 2023-10-11 10:57 | Outpatient (AMB) | payer OTHER, SELFPAY ==
--- NOTE | 2023-10-11 11:04 | MHC.PC.OV ---
Vital Signs 10/11/23 11:07 Height 5 ft 9 in Weight 306 lb BMI 45.2 BP 124/80 Blood Pressure Location Rt brachial Position Sitting Pulse 54 Pulse Source Pulse Oximeter Pulse Oximetry (%) 98 Oxygen Delivery Method Room Air Intake Visit Reasons: annual PE Intake Note: Patient here for physical exam.pt would like to talk about bilat shoulder pain/burning sensation. last PSA:2022 colon: 2022 Allergies No Known Allergies [No Known Allergies*] Allergy (Verified 10/11/23 11:39) Medication List - Last Reconciled 10/11/23 by ISABELA PakP- allopurinol 200 mg (2 x 100 mg) PO BID atenolol 100 mg (2 x 50 mg) PO DAILY CPAP (CPAP Machine/Device) As directed escitalopram oxalate 10 mg PO DAILY fluticasone propionate 50 mcg/actuation 1 spray intranasal BID 30 days ibuprofen 600 mg PO Q8H PRN omeprazole 40 mg PO DAILY 90 days oxcarbazepine 300 mg PO BID tamsulosin 0.4 mg PO BEDTIME 90 days Tobacco use date assessed: 10/11/23 Fall risk assessment: No Falls in past year Last assessed Fall Risk: 10/11/23 Dental Screening Dental Screen Date: 10/11/23 Did you have a dental visit in the last 12 months?: Yes Did you have a dental problem in the last 6 months where you did not have access to dental care?: No Was dental information given to patient?: Patient has dentist HPI annual PE HPI Details Pt is here for a PE. Will order labs. Colon screen is up to date. PSA is up to date. Denies dribbling with urination, weak stream, and frequent nocturia. Pt c/o cervical neck pain with radiculopathy down his upper extremities. Will order XR. Pt c/o post-nasal drip. Recommended OTC cetirizine 2 tabs nightly. Highly encouraged dietary changes and exercise for weight loss. [facility] Medical History Hypertension Dyspnea PLMD (periodic limb movement disorder) Morbid obesity with BMI of 40.0-44.9, adult NAFL (nonalcoholic fatty liver) Cyst of left kidney Limb swelling DESIREE (obstructive sleep apnea) Hyperlipidemia Gout GERD without esophagitis Surgical History Hx of total knee replacement Hx of endoscopy History of colonoscopy Family History Father Family history of high blood pressure Mother Hx of rheumatoid arthritis Social History Household Members: Spouse Housing: House Alcohol intake: current Alcohol intake frequency: former alcohol drinker Patient Tobacco Use Status: Never used Tobacco Tobacco use type: Cigarette Years Smoked: 5 years e-Cigarette/Vaping Use: Never Used Second Hand Smoke Exposure: No Current occupational status: retired Current occupation: rt hand Cognitive needs: No Hearing needs: No Vision needs: Yes Questionnaire PHQ-9 Over the last 2 weeks, how often have you been bothered by any of the following problems? 16501 - PHQ-9 Billing: Patient declined-do not bill Source: Developed by Drs. Patrick Wilson, Kriss Garza, Tom Juárez and colleagues, with an educational awilda from [employer]. Thrive Questionnaire Date Thrive assessed: 10/11/23 What is your living situation today?: I choose not to answer this question Within the past 12 months, did the food you bought not last and you didn't have the money to get more?: I choose not to answer this question Within the past 12 months, did you worry whether your food would run out before you got money to buy more?: I choose not to answer this question Do you have trouble paying for medicines?: I choose not to answer this question Do you have trouble getting transportation to medical appointments?: I choose not to answer this question Do you have trouble paying your heating and electricity bill?: I choose not to answer this question Do you have trouble taking care of your child, family member or friend?: I choose not to answer this question Do you have trouble with day-to-day activities such as bathing, preparing meals, shopping, managing finances, etc.?: I choose not to answer this question Are you currently unemployed and looking for a job?: I choose not to answer this question Are you interested in more education?: I choose not to answer this question Currently or been in a relationship where the following occur: I choose not to answer this question THRIVE Score: 0 AUDIT C Alcohol Use Questionnaire (AUDIT-C) 1. How often do you have a drink containing alcohol?: Never 3. How often do you have six or more drinks on one occasion?: Never Total Score: 0 Score Reviewed/Action Taken: No MAREK-7 AMB Questionnaire MAREK-7 Date MAREK - 7 assessed: 10/11/23 Source: Developed by Drs. Patrick Wilson, Kriss Garza, Tom Juárez and colleagues, with an educational awilda from [employer]. MAREK-7 Assessment Billing MAREK-7 Assessment Tool: pt declined-do not bill Review of Systems Const Denies chills and Denies fever(s) Eyes Denies blurry vision ENT Denies vertigo, Denies dizziness and Denies sore throat Card Denies chest pain at rest, Denies chest pain with activity, Denies diaphoresis, Denies dyspnea and Denies dyspnea on exertion Resp Denies cough, Denies dyspnea, Denies dyspnea on exertion and Denies wheezing GI Denies abdominal pain, Denies melena, Denies hematochezia, Denies constipation, Denies diarrhea and Denies loose stools Denies hematuria Musc Denies numbness and Denies tingling Skin/Breast Denies lesions Neuro Denies vertigo, Denies dizziness, Denies numbness and Denies tingling Psych Denies anxiety, Denies depression, Denies homicidal ideation, Denies suicidal ideation and Denies other (substance abuse) Aller/Immun Denies wheezing Physical exam (Primary Care) Vital Signs: Last Vital Signs Pulse 54 10/11/23 11:07 BP 124/80 10/11/23 11:07 Pulse Ox 98 10/11/23 11:07 Oxygen Delivery Method Room Air 10/11/23 11:07 BMI result Body Mass Index 45.2 Tobacco/Smoking Status: Tobacco use Status Tobacco use date assessed 10/11/23 10/11/23 11:12 Patient Tobacco Use Status Never used Tobacco 10/11/23 11:12 Tobacco use type Cigarette 10/11/23 11:06 e-Cigarette/Vaping Use Never Used 10/11/23 11:06 Thrive Assessment: Date of Thrive Assessment Date Thrive assessed 10/11/23 10/11/23 11:12 Currently or been in a relationship where the following occur: I choose not to answer this question Const General: cooperative Nutritional Appearance: obese morbidly obese Orientation/consciousness: patient oriented x3 HENMT Head: Yes normal to inspection, Yes normocephalic and Yes atraumatic Ears: TM's normal bilaterally Eyes General: appearance normal, both eyes and all related structures Alignment and Position: alignment normal and position normal Neck Neck: Yes normal visual inspection and Yes no lymphadenopathy Thyroid: Thyroid normal Resp Effort & Inspection: normal respiratory effort Auscultation: clear to auscultation bilaterally Cardio Rate: regular rate Rhythm: regular rhythm Heart sounds: S1 normal heart sound present, S2 normal heart sound present and no murmurs GI Palpation (GI): Soft to palpation and nontender Auscultation: normal bowel sounds Male General Exam: Yes normal external exam Penis: normal penis Scrotum: scrotum normal, testes descended bilaterally and no inguinal hernias Testes: no testicular mass Back/Spine/Pelvis Other: cervical neck pain exacerbated with chin raises, no pain with chin tucks, turning head side to side, neck flexion, and extension, - spurlings Skin Other: right pre-auricular region/TMJ region with raised darker lesion Rashes: no rashes Neuro General: patient oriented x3, moves all extremities, no focal motor deficits and deep tendon reflexes 2+ bilaterally Romberg Test: Negative Psych Appearance: grossly normal Mental Status: mental status grossly normal Speech and movement: Normal speech and movement present Affect: normal affect Attitude: cooperative Thought process: Normal thought process present Thought content: Normal thought content present Insight: Good insight present (Psych) Judgement: Good judgement present (Psych) Assessment and Plan Assessment & Plan (1) Physical exam: Code(s): Z00.00 - Encounter for general adult medical examination without abnormal findings Plan: Labs ordered (2) Cervical radiculitis: Code(s): M54.12 - Radiculopathy, cervical region Plan: XR ordered Plan The patient agreed to the use of a center medical and lab director for this encounter. Scribed for CRESENCIO Chen by Dot Gauthier center medical and lab director, on 10/11/2023 at 11:15 EST. Orders: Orders Complete Blood Count Auto Diff Today Z00.00 - Encounter for general adult medical examination without abnormal findings Comprehensive [place]. Panel Fast Today Z00.00 - Encounter for general adult medical examination without abnormal findings UA CC w/rflx Micro + Cult Today Z00.00 - Encounter for general adult medical examination without abnormal findings Lipid Panel Today Z00.00 - Encounter for general adult medical examination without abnormal findings TSH reflex Free T4 Today Z00.00 - Encounter for general adult medical examination without abnormal findings XR cervical spine 2V Today M54.12 - Radiculopathy, cervical region Referrals Dermatology Referral M54.12 - Radiculopathy, cervical region Coding Level of Care Code Est Pt Prev Care >65y(12409) Diagnoses Physical exam Z00.00 Cervical radiculitis M54.12
[2023-10-11 11:07] VITALS: BP 124/80; PULSE 54; O2SAT 98; BMI 45.2
== END 2023-10-11 11:30 | disposition home or self-care (01) ==
PROVIDERS: PCP Nurse Practitioner Family; Visit Provider Nurse Practitioner Family
DX: Z00.00 Encounter for general adult medical examination without abnormal findings (principal); M54.12 Radiculopathy, cervical region
CPT/HCPCS: 99397

== ENCOUNTER 2023-10-16 10:18 | Outpatient (REF) | payer OTHER, SELFPAY ==
--- NOTE | ~2023-10-16 | XR_ITS ---
EXAMINATION: XR CERVICAL SPINE CLINICAL INFORMATION: Cervical radiculopathy COMPARISON: None available. TECHNIQUE: 3 views of the cervical spine were obtained. FINDINGS: Vertebral bodies are well aligned and there is narrowing of C4-C5, C5-C6, C6-C7, C7-T1. C7-T1 obscured by elevated shoulders. Soft tissues unremarkable. The spondylolysis or listhesis. XR/XR cervical spine 2V IMPRESSION: Multilevel degenerative changes
== END 2023-10-16 10:19 | disposition home or self-care (01) ==
LOC: HO.XRAY 10:18
PROVIDERS: PCP Nurse Practitioner Family; Visit Provider Nurse Practitioner Family
DX: M54.12 Radiculopathy, cervical region (principal)
CPT/HCPCS: 72040

== ENCOUNTER 2023-10-21 09:02 | Outpatient (REF) | payer OTHER, SELFPAY ==
[2023-10-21 09:14] LABS: MANUAL DIFF FLAG NO
[2023-10-21 09:27] LABS: Basophils Percent Auto 0.6 % (0-2); Eosinophils Absolute Auto 0.1 X10*3/uL (0.0-0.4); Eosinophils Percent Auto 2.1 % (0-4); Hematocrit 47.3 % (42.0-52.0); Hemoglobin 15.3 g/dl (14.0-18.0); Imm Gran Abs Auto 0.02 X10*3/uL (0.00-0.03); Imm Gran Pct Auto 0.3 % (0.0-0.4); Lymphocytes Absolute Auto 1.7 X10*3/uL (1.2-4.9); Lymphocytes Percent Auto 25.8 % (20-40); Mean Corpuscular HGB Conc 32.3 g/dl (31.0-36.0); Mean Corpuscular Hemoglobin 28.5 pg (27.0-33.0); Mean Corpuscular Volume 88.1 fL (80.0-98.0); Mean Platelet Volume 10.3 fL (9.4-12.4); Monocytes Absolute Auto 0.5 X10*3/uL (0.1-1.2); Monocytes Percent Auto 7.3 % (2-11); Neutrophils Absolute Auto 4.2 x10*3/uL (2.0-8.3); Neutrophils Percent Auto 63.9 % (45-73); Platelet Count 248 X10*3/uL (160-400); Red Blood Count 5.37 X10*6/uL (4.60-5.80); Red Cell Distribution Width 14.1 % (11.0-16.0); White Blood Count 6.6 X10*3/uL (4.8-10.8)
[2023-10-21 10:03] LABS: Alanine Aminotransferase 44 U/L (0-40); Albumin Level 4.4 g/dL (3.5-5.0); Alkaline Phosphatase 64 U/L (39-117); Anion Gap 15 (12-20); Aspartate Amino Transferase 29 U/L (5-37); Bilirubin Total 0.5 mg/dL (0.0-1.0); Blood Urea Nitrogen 13 mg/dL (9-16); Calcium 9.9 mg/dL (8.4-10.2); Carbon Dioxide 26 mmol/L (22-29); Chloride 105 mmol/L (96-108); Cholesterol 166 mg/dL (<200); Estimated Glomerular Filt Rate > 60; Glucose Fasting 102 mg/dL (60-99); HDL Cholesterol 36 mg/dL (>40); LDL Cholesterol Calculated 84 mg/dL (<100); Potassium 4.7 mmol/L (3.3-5.1); Sodium 141 mmol/L (135-145); Total Protein 7.7 g/dL (6.5-8.0); Triglycerides 232 mg/dL (<150)
[2023-10-21 10:20] LABS: TSH reflex Free T4 1.42 uIU/mL (0.32-4.0)
[2023-10-21 10:30] LABS: Appearance Urine Clear; Color Urine Yellow; Glucose Urine UA Negative (Negative); Leukocyte Esterase Urine Negative (Negative); Nitrite Urine Negative (Negative); PH 5.5 (5.0-9.0); UMIC TRIGGER UACC YES; Urine Blood Negative (Negative); Urine Ketones Negative (Negative); Urine Protein 100 (2+) mg/dL (Neg-Trace)
[2023-10-21 10:52] LABS: Bacteria Urine None Seen (None Seen); Hyaline Casts Urine 0-2 /LPF (0-2); RBC Urine 0-2 /HPF (0-2); Squamous Epithelial Cell Urine 0-2 /HPF (0-2); UACC Culture Trigger YES
== END 2023-10-21 09:03 | disposition home or self-care (01) ==
LOC: HO.LAB 09:02
PROVIDERS: PCP Nurse Practitioner Family; Visit Provider Nurse Practitioner Family
DX: Z00.00 Encounter for general adult medical examination without abnormal findings (principal); R80.9 Proteinuria, unspecified; I10 Essential (primary) hypertension
CPT/HCPCS: 36415; 80053; 80061; 81001; 84443; 85025; 87086

== ENCOUNTER 2023-11-18 08:22 | Outpatient (REF) | payer OTHER, SELFPAY ==
[2023-11-18 09:59] LABS: Appearance Urine Clear; Color Urine Yellow; Glucose Urine UA Negative (Negative); Leukocyte Esterase Urine Negative (Negative); Nitrite Urine Negative (Negative); PH 5.5 (5.0-9.0); UMIC TRIGGER UACC YES; Urine Blood Negative (Negative); Urine Ketones Negative (Negative); Urine Protein 30 (1+) mg/dL (Neg-Trace)
[2023-11-18 10:04] LABS: Bacteria Urine None Seen (None Seen); RBC Urine 0-2 /HPF (0-2); Squamous Epithelial Cell Urine 0-2 /HPF (0-2); WBC Urine 0-5 /HPF (0-5)
== END 2023-11-18 08:23 | disposition home or self-care (01) ==
LOC: HO.LAB 08:22
PROVIDERS: PCP Nurse Practitioner Family; Visit Provider Nurse Practitioner Family
DX: Z00.00 Encounter for general adult medical examination without abnormal findings (principal)
CPT/HCPCS: 81001; 81003

== ENCOUNTER 2023-11-23 11:22 | Outpatient (AMB) | payer OTHER, SELFPAY ==
--- NOTE | 2023-11-23 11:31 | A.OFFVIS_ITS ---
Intake Visit Reasons: 6m/PVR Intake Note: Patient is Present for PVR/ Urology Med: Tamsulosin Antibiotic Allergy: None Blood Thinner:None Todays PVR:14 Patient states that the Tamsulosin is not working as effectively as before Allergies No Known Allergies [No Known Allergies*] Allergy (Verified 11/23/23 11:35) HPI Comments Details: Tyrese is a pleasant male. He is seen for the following urologic issues - renal cyst - bladder outlet obstruction - erectile dysfunction Six-month follow-up voiding. PVR 15 cc. Decreased response to tamsulosin Known large prostate Might benefit from finasteride and terazosin Mentioned erectile dysfunction On demand 20 mg tadalafil trial Stable renal cyst - no follow-up recommended Lower urinary tract symptoms Hesitancy weakness of stream Progressive symptoms Prior therapy includes tamsulosin Bladder ultrasound 02/08 low PVR, 70 g prostate Renal cyst Detected during recent abdominal imaging Imaging - 02/06 1.7 cm left renal cyst on ultrasound - 02/08 renal ultrasound bilateral 1-2 cm cysts - no follow-up recommended by Radiology Natural history of renal cyst discussed PFS Medical History Hypertension Dyspnea PLMD (periodic limb movement disorder) Morbid obesity with BMI of 40.0-44.9, adult NAFL (nonalcoholic fatty liver) Cyst of left kidney Limb swelling DESIREE (obstructive sleep apnea) Hyperlipidemia Gout GERD without esophagitis Surgical History Hx of total knee replacement Hx of endoscopy History of colonoscopy Family History Father Family history of high blood pressure Mother Hx of rheumatoid arthritis Social History Household Members: Spouse Housing: House Alcohol intake: current Alcohol intake frequency: former alcohol drinker Patient Tobacco Use Status: Never used Tobacco Tobacco use type: Cigarette Years Smoked: 5 years e-Cigarette/Vaping Use: Never Used Second Hand Smoke Exposure: No Current occupational status: retired Current occupation: rt hand Cognitive needs: No Hearing needs: No Vision needs: Yes Review of Systems Const Denies chills and Denies fever(s) Card Reports no additional complaints and Denies syncope Resp Denies cough GI Denies abdominal pain and Denies heartburn Reports as per HPI and Denies change in libido Neuro Denies syncope Psych Denies change in libido Endo Denies change in libido Physical Exam Const General: cooperative, healthy appearing, comfortable and no acute distress Orientation/consciousness: patient oriented x3 HEENT Face and sinus: Yes normal facial exam Mouth: moist mucous membranes Neck Neck: Yes normal visual inspection, Yes full ROM and Yes trachea midline Chest Chest palpation & inspection: normal inspection of the chest Resp Effort & Inspection: normal respiratory effort, able to speak in complete sentences and no respiratory distress GI Inspection: Yes normal to inspection Back/Spine/Pelvis Cervical Spine: normal cervical lordosis Thoracic/Lumbar Spine: thoracic and lumbar spine normal to inspection Skin General skin exam: no rashes or lesions noted Neuro General: patient oriented x3, gait normal, tone normal and moves all extremities Extrem General: Yes normal to inspection and Yes capillary refill normal Office Procedures Post Void Residual Post Residual Void Post Void Residual (PVR): 14 22302-[id number] Void Residual by ultrasound Assessment & Plan Assessment & Plan (1) Bladder outlet obstruction: Code(s): N32.0 - Bladder-neck obstruction Category: Medical (2) Erectile dysfunction: Code(s): N52.9 - Male erectile dysfunction, unspecified Category: Medical Plan Switched to finasteride and terazosin Office cystoscopy Trial tadalafil Orders: Orders AMB Post Void Residual by ultrasound Today N32.0 - Bladder-neck obstruction Medications: New finasteride 5 mg PO DAILY 90 days 90 tabs 1RF N13.8 - Other obstructive and reflux uropathy, N32.0 - Bladder-neck obstruction, N40.1 - Benign prostatic hyperplasia with lower urinary tract symptoms, R33.9 - Retention of urine, unspecified terazosin 5 mg PO BEDTIME 30 days 30 caps 1RF N32.0 - Bladder-neck ob struction, N40.1 - Benign prostatic hyperplasia with lower urinary tract symptoms, R35.0 - Frequency of micturition tadalafil On demand medication take 60 minutes before intended activity 20 mg PO ONCE 30 days PRN 30 tabs 0RF sexual activity E11.69 - Type 2 diabetes mellitus with other specified complication, N52.1 - Erectile dysfunction due to diseases classified elsewhere Discontinued tamsulosin Discontinued Reason: Doctor's Order 0.4 mg PO BEDTIME 90 days 90 caps 1RF N32.0 - Bladder-neck obstruction Coding Level of Care Code Est Pt Level 4 (41813) Diagnoses Bladder outlet obstruction N32.0 Erectile dysfunction N52.9 CPT Codes Post Residual Void - PVR CPT Code: 54374-Lqcw Void Residual by ultrasound ([id number])
== END 2023-11-23 12:06 | disposition home or self-care (01) ==
PROVIDERS: PCP Nurse Practitioner Family; Visit Provider Urology
DX: N32.0 Bladder-neck obstruction (principal); N52.9 Male erectile dysfunction, unspecified
CPT/HCPCS: 99214

== ENCOUNTER → 2023-11-23 11:22 | Outpatient (BNVA) | payer OTHER, SELFPAY | PROVIDERS: PCP Nurse Practitioner Family; Visit Provider Urology | DX: N32.0 Bladder-neck obstruction (principal); N52.9 Male erectile dysfunction, unspecified | CPT/HCPCS: 51798; 99212 ==

== ENCOUNTER 2024-01-04 17:00 | Outpatient (RCR) | payer OTHER, SELFPAY ==
--- NOTE | 2023-11-27 18:17 | MHC.PT.EP ---
[facility] [place] Office [place] Office [place] Office [address] Jyoti Rivas [address] [phone] F: [phone] F: [phone] F: [phone] F: [phone] Physical Therapy Plan of Care Date of Evaluation: 11/27/23 Date of Surgery: N/A Diagnosis: radiculopathy, cervical region (RL) Assessment: pt is a 73 y/o male presenting to physical therapy w/ referring diagnosis of radiculopathy, cervical region. He does present w/ some proximal weakness; however, I am unsure if this is pain-limited or d/t true neurological involvement. He does have significant muscle tension and I was able to reproduce his arm pain by palpating his upper trapezius. Will continue to monitor and treat or refer as appropriate. Impairments include pain, decreased range of motion, decreased strength, impaired functional mobility, impaired postural awareness, and altered ambulation mechanics. pt is a good candidate for skilled PT due to age, potential remediation of impairments, typical disease/condition progression and prognosis, comorbidities, and motivation. pt would benefit from skilled PT intervention to provide a tailored strengthening and stretching exercise program, functional training, gait training, postural re-training, neuromuscular re-education, modalities as needed for pain, equipment safety demonstration. Frequency and Duration: The patient will be seen 2x/wk for 4 wks Short Term Goals: pt will be I w/ HEP to promote self-management of condition. pt will demo proper sitting posture w/ lumbar spine to promote neutral spine w/ work-related tasks and seated ADLs. Beater Tender Goals: pt will report a statistically significant improvement in self-reported outcome measure, NDI, to promote return to PLOF. pt will improve B cervical rotation by at least 10 degrees to promote ease in head turns w/ driving for work. Treatment Plan: Modalities to reduce pain, spasms and effusion. Manual therapy to restore motion and function. Therapeutic exercise to improve strength and flexibility. Neuromuscular re-education for posture and balance. Therapeutic activities to return to functional activities of daily living. Electronically signed by: Jannie Hussein PT, DPTq Please sign and return to therapist. Thank you for your referral.
--- NOTE | 2024-02-07 14:39 | MHC.PT.DC ---
[facility] [place] Office [place] Office [place] Office [address] Jyoti Rivas [address] [phone] F: [phone] F: [phone] F: [phone] F: [phone] Physical Therapy Discharge Report Diagnosis: radiculopathy, cervical region (RL) Date of Surgery: N/A Date of Evaluation: 11/27/23 Date of Discharge: 02/07/24 Treatments to Date: 4 Cancellations to Date: 4 No Shows to Date: 0 Discharge Status: Improved Function Independent with HEP Discharge Summary: Pt has not attended PT since 01/03/24. Pt has been reporting minimal neck pain and complete resolution of B radicular sx. Electronically signed by: Jannie Andersen, PT, DPT Please sign and return to therapist. Thank you for your referral.
== END 2024-02-07 14:39 | disposition home or self-care (01) ==
LOC: HO.PT 17:00
PROVIDERS: PCP Nurse Practitioner Family; Visit Provider Nurse Practitioner Family
DX: M54.12 Radiculopathy, cervical region (principal)
CPT/HCPCS: 97110; 97140; 97162

== ENCOUNTER 2024-01-12 06:47 | Outpatient (REF) | payer OTHER, SELFPAY ==
[2024-01-12 07:28] LABS: Appearance Urine Clear; Color Urine Yellow; Glucose Urine UA Negative (Negative); Leukocyte Esterase Urine Negative (Negative); Nitrite Urine Negative (Negative); PH 5.5 (5.0-9.0); Specific Gravity - Urine 1.025 (1.005-1.025); UMIC TRIGGER UACC YES; Urine Blood Trace (Negative); Urine Ketones Negative (Negative); Urine Protein 300 (3+) mg/dL (Neg-Trace)
[2024-01-12 07:32] LABS: Bacteria Urine None Seen (None Seen); Hyaline Casts Urine 0-2 /LPF (0-2); Squamous Epithelial Cell Urine 0-2 /HPF (0-2); WBC Urine 0-5 /HPF (0-5)
[2024-01-12 08:02] LABS: Alanine Aminotransferase 30 U/L (0-40); Albumin Level 4.4 g/dL (3.5-5.0); Alkaline Phosphatase 67 U/L (39-117); Anion Gap 14 (12-20); Aspartate Amino Transferase 24 U/L (5-37); Bilirubin Total 0.4 mg/dL (0.0-1.0); Blood Urea Nitrogen 16 mg/dL (9-16); Calcium 9.4 mg/dL (8.4-10.2); Carbon Dioxide 23 mmol/L (22-29); Chloride 107 mmol/L (96-108); Cholesterol 140 mg/dL (<200); Estimated Glomerular Filt Rate > 60; Glucose Fasting 112 mg/dL (60-99); HDL Cholesterol 37 mg/dL (>40); LDL Cholesterol Calculated 77 mg/dL (<100); Potassium 4.3 mmol/L (3.3-5.1); Sodium 140 mmol/L (135-145); Total Protein 7.4 g/dL (6.5-8.0); Triglycerides 134 mg/dL (<150)
== END 2024-01-12 06:48 | disposition home or self-care (01) ==
LOC: HO.LAB 06:47
PROVIDERS: PCP Nurse Practitioner Family; Visit Provider Nurse Practitioner Family
DX: Z00.00 Encounter for general adult medical examination without abnormal findings (principal); E78.1 Pure hyperglyceridemia; I10 Essential (primary) hypertension; R80.9 Proteinuria, unspecified
CPT/HCPCS: 36415; 80053; 80061; 81001

== ENCOUNTER 2024-02-07 13:49 | Outpatient (AMB) | payer OTHER, SELFPAY ==
[2024-02-07 14:08] VITALS: BP 130/86; PULSE 58; O2SAT 97; BMI 41.6
--- NOTE | 2024-02-07 14:08 | HO.NEPHOV_ITS ---
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 He has no history of diabetes mellitus. History of BPH and currently follows with Dr. Marie. Today he has no specific complaints. [facility] Medical History Hypertension Dyspnea PLMD (periodic limb movement disorder) Morbid obesity with BMI of 40.0-44.9, adult NAFL (nonalcoholic fatty liver) Cyst of left kidney Limb swelling DESIREE (obstructive sleep apnea) Hyperlipidemia Gout GERD without esophagitis Surgical History Hx of total knee replacement Hx of endoscopy History of colonoscopy Family History Father Family history of high blood pressure Mother Hx of rheumatoid arthritis Social History Household Members: Spouse Housing: House Alcohol intake: current Alcohol intake frequency: former alcohol drinker Patient Tobacco Use Status: Never used Tobacco Tobacco use type: Cigarette Years Smoked: 5 years e-Cigarette/Vaping Use: Never Used Second Hand Smoke Exposure: No Current occupational status: retired Current occupation: rt hand Cognitive needs: No Hearing needs: No Vision needs: Yes Review of Systems Const Reports as per HPI, Denies anorexia, Denies fatigue, Denies fever(s) and Denies headache(s) Eyes Denies blurry vision ENT Denies headache(s) Card Denies chest pain, Denies pedal edema and Denies dyspnea Resp Denies cough, Denies hemoptysis and Denies dyspnea GI Denies diarrhea, Denies nausea and Denies vomiting Denies hematuria, Denies urinary frequency and Denies urinary hesitancy Neuro Denies confusion, Denies headache(s) and Denies focal weakness Psych Denies confusion Endo Denies cold intolerance, Denies fatigue and Denies polyuria Physical Exam Vital Signs: Last Vital Signs Pulse 58 02/07/24 14:08 BP 130/86 02/07/24 14:08 Pulse Ox 97 02/07/24 14:08 Oxygen Delivery Method Room Air 02/07/24 14:08 BMI result Body Mass Index 41.6 Const General: No confusion Orientation/consciousness: No confusion Eyes General: appearance normal, both eyes and all related structures Visual Fontenot: normal visual fontenot by confrontation Neck Neck: Yes supple and Yes no JVD Resp Effort & Inspection: normal respiratory effort and respiratory effort not decreased Auscultation: rhonchi Cardio Palpation: no palpable S3 and no palpable S4 Heart sounds: no rubs GI Inspection: Yes normal to inspection Palpation (GI): Soft to palpation Percussion: Yes normal to percussion Auscultation: normal bowel sounds General: Yes no CVA tenderness Back/Spine/Pelvis Back: no CVA tenderness Skin General skin exam: no petechiae and no purpura Neuro General: No confusion Extrem General: No clubbing and No edema Results Reviewed Results Reviewed: RIGHT KIDNEY: 14.7 x 6.1 x 6.0 cm (SAG x AP x TRV). The kidney is normal in size, contour, and echogenicity. Renal cortical thickness is normal. No renal calculi or hydronephrosis. Benign-appearing renal cyst measuring 1 cm. No follow up imaging is recommended. LEFT KIDNEY: 11.5 x 5.7 x 5.7 cm (SAG x AP x TRV). The kidney is normal in size, contour, and echogenicity. Renal cortical thickness is normal. No renal calculi or hydronephrosis. Benign-appearing renal cysts measuring up to 1.6 cm. No follow-up imaging is recommended. US/US renal BI IMPRESSION: Benign-appearing bilateral renal cysts measuring up to 1.6 cm. No follow up imaging is recommended. Nephrology Results: 2 Hgb 15.3 g/dl (14.0-18.0) 10/21/23 WBC 6.6 X10*3/uL (4.8-10.8) 10/21/23 Plt Count 248 X10*3/uL (160-400) 10/21/23 Sodium 140 mmol/L (135-145) 01/12/24 Potassium 4.3 mmol/L (3.3-5.1) 01/12/24 Chloride 107 mmol/L (96-108) 01/12/24 Carbon Dioxide 23 mmol/L (22-29) 01/12/24 BUN 16 mg/dL (9-16) 01/12/24 Creatinine 1.02 mg/dL (0.5-1.4) 01/12/24 Calcium 9.4 mg/dL (8.4-10.2) 01/12/24 Urine Protein TNP 01/31/24 Assessment & Plan Assessment & Plan (1) Protein in urine: Code(s): R80.9 - Proteinuria, unspecified Category: Medical Plan 72-year-old man with a history of hypertension with the proteinuria and essentially normal renal function. The differential diagnosis for isolated proteinuria is rather extensive. We discussed importance of tight control blood pressure. He will benefit from weight loss. Obesity could be a contributing factor for proteinuria. First step is to quantify the proteinuria and I have initiated a workup for the same. He will benefit from an MATTEO inhibitor as well. We will start him on 1 after the baseline workup is completed. I have reassured him. Encouraged him to stand low-sodium diet. Increase exercise activity. Further workup will be based on the outcome of the above baseline investigations Orders: Orders Basic Metabolic Panel Today R80.9 - Proteinuria, unspecified Total Protein Urine Random Today R80.9 - Proteinuria, unspecified UA and rflx microscopic Today R80.9 - Proteinuria, unspecified Complement C3 Today R80.9 - Proteinuria, unspecified Complement C4 Today R80.9 - Proteinuria, unspecified Protein Electrophoresis, Serum Today R80.9 - Proteinuria, unspecified Complete Blood Count Auto Diff Today R80.9 - Proteinuria, unspecified Creatinine Urine Today R80.9 - Proteinuria, unspecified Immunofixation Pnl, Serum Today R80.9 - Proteinuria, unspecified Neutrophil Cytoplasma Ab Today R80.9 - Proteinuria, unspecified Coding Level of Care Code New Pt Level 4 (15611) Diagnoses Protein in urine R80.9
== END 2024-02-07 14:30 | disposition home or self-care (01) ==
LOC: HO.HKAM 13:50
PROVIDERS: PCP Nurse Practitioner Family; Referring Provider Nurse Practitioner Family; Visit Provider Internal Medicine Hypertension Specialist
DX: R80.9 Proteinuria, unspecified (principal)
CPT/HCPCS: 99204

== ENCOUNTER → 2024-02-07 13:49 | Outpatient (BNVA) | payer OTHER, SELFPAY | PROVIDERS: PCP Nurse Practitioner Family; Referring Provider Nurse Practitioner Family; Visit Provider Internal Medicine Hypertension Specialist | DX: R80.9 Proteinuria, unspecified (principal); I10 Essential (primary) hypertension; E11.9 Type 2 diabetes mellitus without complications | CPT/HCPCS: 99202 ==

== ENCOUNTER 2024-02-10 08:26 | Outpatient (REF) | payer MEDICARE, SELFPAY ==
[2024-02-10 08:51] LABS: MANUAL DIFF FLAG NO
[2024-02-10 09:03] LABS: Basophils Absolute Auto 0.1 X10*3/uL (0.0-0.2); Basophils Percent Auto 0.9 % (0-2); Eosinophils Absolute Auto 0.1 X10*3/uL (0.0-0.4); Eosinophils Percent Auto 2.2 % (0-4); Hematocrit 46.5 % (42.0-52.0); Hemoglobin 15.2 g/dl (14.0-18.0); Imm Gran Abs Auto 0.02 X10*3/uL (0.00-0.03); Imm Gran Pct Auto 0.4 % (0.0-0.4); Lymphocytes Absolute Auto 1.2 X10*3/uL (1.2-4.9); Lymphocytes Percent Auto 22.1 % (20-40); Mean Corpuscular HGB Conc 32.7 g/dl (31.0-36.0); Mean Corpuscular Volume 88.6 fL (80.0-98.0); Mean Platelet Volume 9.8 fL (9.4-12.4); Monocytes Absolute Auto 0.4 X10*3/uL (0.1-1.2); Monocytes Percent Auto 6.4 % (2-11); Neutrophils Absolute Auto 3.8 x10*3/uL (2.0-8.3); Platelet Count 229 X10*3/uL (160-400); Red Blood Count 5.25 X10*6/uL (4.60-5.80); Red Cell Distribution Width 13.2 % (11.0-16.0); White Blood Count 5.5 X10*3/uL (4.8-10.8)
[2024-02-10 09:23] LABS: Anion Gap 13 (12-20); Blood Urea Nitrogen 13 mg/dL (9-16); Calcium 9.7 mg/dL (8.4-10.2); Carbon Dioxide 27 mmol/L (22-29); Chloride 104 mmol/L (96-108); Estimated Glomerular Filt Rate > 60; Glucose Random 113 mg/dL (60-115); Potassium 4.8 mmol/L (3.3-5.1); Sodium 139 mmol/L (135-145)
[2024-02-10 10:14] LABS: Appearance Urine Clear; Color Urine Yellow; Glucose Urine UA Negative (Negative); Leukocyte Esterase Urine Negative (Negative); Nitrite Urine Negative (Negative); UMIC TRIGGER UACC YES; Urine Blood Large (3+) (Negative); Urine Ketones Negative (Negative); Urine Protein Trace mg/dL (Neg-Trace)
[2024-02-10 10:20] LABS: Bacteria Urine None Seen (None Seen); Hyaline Casts Urine 0-2 /LPF (0-2); RBC Urine >20 /HPF (0-2); Squamous Epithelial Cell Urine 0-2 /HPF (0-2); WBC Urine 0-5 /HPF (0-5)
[2024-02-10 10:33] LABS: Creatinine Urine 186.42 mg/dL; Total Protein Urine Random 20 mg/dL (<12)
[2024-02-12 23:24] LABS: Prot Elec - Albumin 4.5 g/dL (3.8-4.8); Prot Elec - Alpha1 0.3 g/dL (0.2-0.3); Prot Elec - Alpha2 0.7 g/dL (0.5-0.9); Prot Elec - Beta 1 0.5 g/dL (0.4-0.6); Prot Elec - Beta 2 0.4 g/dL (0.2-0.5); Prot Elec - Gamma 0.9 g/dL (0.8-1.7); Prot Elec - Total Protein 7.3 g/dL (6.1-8.1)
[2024-02-13 12:58] LABS: Neutrophil Cyto Ab Screen NEGATIVE (NEGATIVE)
[2024-02-14 14:43] LABS: IgA 366 mg/dL (70-320); IgG 961 mg/dL (600-1540); IgM 43 mg/dL (50-300)
[2024-02-15 02:08] LABS: Complement C3 83 mg/dL (82-185)
== END 2024-02-10 08:27 | disposition home or self-care (01) ==
LOC: HO.LAB 08:26
PROVIDERS: PCP Nurse Practitioner Family; Visit Provider Internal Medicine Hypertension Specialist
DX: R80.9 Proteinuria, unspecified (principal)
CPT/HCPCS: 36415; 80048; 81001; 81003; 82570; 82784; 84156; 84165; 85025; 86036; 86160; 86334

== ENCOUNTER 2024-03-06 14:45 | Outpatient (AMB) | payer MEDICARE, SELFPAY ==
--- NOTE | 2024-03-06 14:55 | HO.NEPHOV ---
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 Accompanied by: Self / Same As Patient Allergies No Known Allergies [No Known Allergies*] Allergy (Verified 03/06/24 14:58) Medication List - Last Reconciled 03/06/24 by Ricacrdo Nunez MD allopurinol 200 mg (2 x 100 mg) PO BID atenolol 100 mg (2 x 50 mg) PO DAILY CPAP (CPAP Machine/Device) As directed escitalopram oxalate 10 mg PO DAILY finasteride 5 mg PO DAILY 90 days fluticasone propionate 50 mcg/actuation 1 spray intranasal BID 30 days ibuprofen 600 mg PO Q8H PRN omeprazole 40 mg PO DAILY PRN oxcarbazepine 300 mg PO BID tadalafil 20 mg PO ONCE PRN 30 days tamsulosin mg PO DAILY terazosin 5 mg PO BEDTIME 30 days HPI Comments Details: Tyrese is a pleasant 73-year-old man with a history of hypertension who has been referred for proteinuria. He has no history of diabetes mellitus. History of BPH and currently follows with Dr. Marie. Today he has no specific complaints. [facility] Medical History Hypertension Dyspnea PLMD (periodic limb movement disorder) Morbid obesity with BMI of 40.0-44.9, adult NAFL (nonalcoholic fatty liver) Cyst of left kidney Limb swelling DESIREE (obstructive sleep apnea) Hyperlipidemia Gout GERD without esophagitis Surgical History Hx of total knee replacement Hx of endoscopy History of colonoscopy Family History Father Family history of high blood pressure Mother Hx of rheumatoid arthritis Social History Household Members: Spouse Housing: House Alcohol intake: current Alcohol intake frequency: former alcohol drinker Patient Tobacco Use Status: Never used Tobacco Tobacco use type: Cigarette Years Smoked: 5 years e-Cigarette/Vaping Use: Never Used Second Hand Smoke Exposure: No Current occupational status: retired Current occupation: rt hand Cognitive needs: No Hearing needs: No Vision needs: Yes Physical Exam Vital Signs: Last Vital Signs Pulse 63 03/06/24 14:56 BP 126/70 03/06/24 14:56 Pulse Ox 97 03/06/24 14:56 Oxygen Delivery Method Room Air 03/06/24 14:56 BMI result Body Mass Index 40.5 Results Reviewed Nephrology Results: Hgb 15.2 g/dl (14.0-18.0) 02/10/24 WBC 5.5 X10*3/uL (4.8-10.8) 02/10/24 Plt Count 229 X10*3/uL (160-400) 02/10/24 Sodium 139 mmol/L (135-145) 02/10/24 Potassium 4.8 mmol/L (3.3-5.1) 02/10/24 Chloride 104 mmol/L (96-108) 02/10/24 Carbon Dioxide 27 mmol/L (22-29) 02/10/24 BUN 13 mg/dL (9-16) 02/10/24 Creatinine 1.03 mg/dL (0.5-1.4) 02/10/24 Calcium 9.7 mg/dL (8.4-10.2) 02/10/24 Urine Protein Trace mg/dL (Neg-Trace) 02/10/24 Urine Creatinine 186.42 mg/dL 02/10/24 Assessment & Plan Assessment & Plan (1) Protein in urine: Code(s): R80.9 - Proteinuria, unspecified Category: Medical Plan 72-year-old man with a history of hypertension with the proteinuria and essentially normal renal function. Recent urine protein creatinine ratio was 0.10. He has no significant proteinuria. We discussed importance of tight control blood pressure. He will benefit from weight loss. Blood pressure is well controlled. No absolute indication for MATTEO inhibitor since he has no significant proteinuria. I have reassured him. Encouraged him to stand low-sodium diet. Increase exercise activity. Microscopic hematuria in the setting of BPH and renal cyst. Follow up with Urology Orders: Orders Basic Metabolic Panel 6 Months R80.9 - Proteinuria, unspecified Total Protein Urine Random 6 Months R80.9 - Proteinuria, unspecified Creatinine Urine 6 Months R80.9 - Proteinuria, unspecified Coding Level of Care Code Est Pt Level 4 (93411) Diagnoses Protein in urine R80.9
[2024-03-06 14:56] VITALS: BP 126/70; PULSE 63; O2SAT 97; BMI 40.5
== END 2024-03-06 15:09 | disposition home or self-care (01) ==
LOC: HO.HKAM 14:45
PROVIDERS: PCP Nurse Practitioner Family; Visit Provider Internal Medicine Hypertension Specialist
DX: R80.9 Proteinuria, unspecified (principal); I10 Essential (primary) hypertension
CPT/HCPCS: 99214

== ENCOUNTER → 2024-03-06 14:45 | Outpatient (BNVA) | payer MEDICARE, SELFPAY | PROVIDERS: PCP Nurse Practitioner Family; Visit Provider Internal Medicine Hypertension Specialist | DX: R80.9 Proteinuria, unspecified (principal) | CPT/HCPCS: 99212 ==

== ENCOUNTER 2024-03-14 07:26 | Outpatient (AMB) | payer OTHER, SELFPAY ==
--- NOTE | 2024-03-14 07:29 | MHC.OFFVIS ---
Vital Signs 03/14/24 07:40 Height 5 ft 9 in Weight 280 lb BMI 41.3 BP 119/61 Blood Pressure Location Lt brachial Position Sitting Pulse 51 Intake Visit Reasons: 6 month follow up Intake Note: Patient 6 month for Adenomatous duodenal polyp Patient denies any GI issues. Industrial Relations Counselor Required: No Accompanied by: Self / Same As Patient Allergies No Known Allergies [No Known Allergies*] Allergy (Verified 03/14/24 07:34) Medication List - Last Reconciled 03/14/24 by Rod Gomez MD allopurinol 200 mg (2 x 100 mg) PO BID atenolol 100 mg (2 x 50 mg) PO DAILY CPAP (CPAP Machine/Device) As directed escitalopram oxalate 10 mg PO DAILY finasteride 5 mg PO DAILY 90 days fluticasone propionate 50 mcg/actuation 1 spray intranasal BID 30 days ibuprofen 600 mg PO Q8H PRN omeprazole 40 mg PO DAILY PRN oxcarbazepine 300 mg PO BID tadalafil 20 mg PO ONCE PRN 30 days tamsulosin mg PO DAILY terazosin 5 mg PO BEDTIME 30 days HPI HPI 6 month follow up: Details: GI clinic visit for this 74-year-old male with hypertension, hyperlipidemia, morbid obesity and gout for follow-up of GERD, fatty liver and colon polyps. TODAY'S VISIT Past lab results reviewed. Reluctant to have bariatric surgery due to concern for complications due to his age. He is willing to see them for medical wt loss - referral sent. Heartburn is gone - taking Omeprazole as needed. Lost 20 lbs - works on his treadmill 15 to 20 min a day. PAST VISIT: He is interested in seeing Bariatric surgery since he is unable to loose weight. EGD and colon results reviewed. Doing well - GERD is under control Taking Omeprazole less than 3 times a week. Continues to have intermittent problems with PND ?Seen by ENT 1 year ago and treated by the shrimp peeling machine tender Did not follow up with allergy shots since it was a 3 yr treatment ? ? Lost 25 lbs and feeling better. Denies symptoms of heart burn and takes Omeprazole prn - usually every other week if he eats spicy food. Continues to have post nasal drips Discontinued allergy shots since they were not helping EGD and Colonoscopy results were reviewed with the patient. Continues to have PND x 2 yrs. Has been evaluated by ENT. Getting allergy shots and not very helpful in improving PND. Had acid regurgitation in the past and none at present. COVID free since since finished with quarantine ? ? Had mild symptoms - chills and ZHOU, loss of taste and smell ? ? Had his 2nd? COVID vaccine recently ? ? Continues to have post nasal drip and does not note any difference in his symptoms. ? ? Using Flonase and getting allergy shots. ?? ? Takes Indomethacine prn ? Doing very well with Omeprazole. ? Main concern is his post nasal drip. ? Saw ENT and is on allergy treatment - a shot every week x 1 year? for the past month. ? Dxed with allergy to dust mites. ? Notes heartburn once a week. ? Reflux symptoms well controlled with Omeprazole. ? Continues to have issues with post nasal drip for the past 3 months - bothering him too much. ? PND is getting worse and worse. ? Has to clear his throat frequently resulting in sore throat. ? Has been taking OTC anti allergy medications without relief. ? Saw an smart energy specialist a month ago and scheduled for a follow-up appointment in November. ? Had allergy testing done and showed allergy to mites. ? Patient denies change in bowel habits, black stools or?rectal bleeding LABS IN [facility]:?07/31/19 normal CBC, iron studies and LFTs, low normal vitamin B12 at 223 ENDOSCOPIC PROCEDURES: 10/14/22 EGD AND COLON SHOWED: Endoscopy Findings: STOMACH: Gastritis DUODENUM: Duodenal polyp Colonoscopy Findings: Two small and one medium sized polyps removed Moderate diverticulosis seen in the sigmoid colon Moderate hemorrhoids on retroflexed exam. Plan: Repeat Colonoscopy interval based on path results - in 3 years if polyps are adenomatous and 5 years if polyps are hyperplastic (due to a hx of adenomatous colon polyps). 03/20/21 EGD AND COLONOSCOPY SHOWED: STOMACH: Gastritis with a few erosions - Bx negative for HP DUODENUM: Normal - no recurrent duodenal polyp noted. Colonoscopy Findings:? Three medium sized polyps removed - one polyp was retrieved - TA on bx Mild hemorrhoids on retroflexed exam. Plan:? Repeat Colonoscopy interval based on path results - in 1-2 years if polyps are adenomatous and due to suboptimal prep in the cecum. EGD 06/2019 ? gastritis, ? esophageal nodule ?DIAGNOSIS ? A. Stomach, biopsies: Gastric mucosa with moderate to severe chronic, inactive ? gastritis; negative for Helicobacter pylori organisms; negative for intestinal metaplasia; negative for dysplasia. ? B. Esophagus, nodule, biopsy: Polypoid fragments of squamous epithelium with mild to moderate reactive features suggestive of chronic reflux; negative for dysplasia/malignancy. ? NOTE:? Special studies ordered and performed: Immunostain for Helicobacter pylori on A. ? Discussed wih pt that he needs a repeat EGD in 1 year- due to adenoma removal ? 04/2018 colonoscopy was performed by Dr. Weber and 5 small adenomatous polyps were removed ? Repeat colonoscopy is due in 3 years [facility] Medical History Hypertension Dyspnea PLMD (periodic limb movement disorder) Morbid obesity with BMI of 40.0-44.9, adult NAFL (nonalcoholic fatty liver) Cyst of left kidney Limb swelling DESIREE (obstructive sleep apnea) Hyperlipidemia Gout GERD without esophagitis Surgical History Hx of total knee replacement Hx of endoscopy History of colonoscopy Family History Father Family history of high blood pressure Mother Hx of rheumatoid arthritis Social History Household Members: Spouse Housing: House Alcohol intake: current Alcohol intake frequency: former alcohol drinker Patient Tobacco Use Status: Never used Tobacco Tobacco use type: Cigarette Years Smoked: 5 years e-Cigarette/Vaping Use: Never Used Second Hand Smoke Exposure: No Current occupational status: retired Current occupation: rt hand Cognitive needs: No Hearing needs: No Vision needs: Yes Review of Systems Const All systems reviewed & are unremarkable except as noted in HPI and below Physical Exam Vital Signs: Last Vital Signs Pulse 51 03/14/24 07:40 BP 119/61 03/14/24 07:40 BMI result Body Mass Index 41.3 Const General: healthy appearing and no acute distress Nutritional Appearance: obese Orientation/consciousness: patient oriented x3 Limitations: no limitations HEENT Head: Yes normal to inspection Ears: hearing grossly normal bilaterally Eyes Sclerae: sclerae normal Pupils: Equal, round and reactive pupils present Neck Neck: Yes normal visual inspection Chest Chest palpation & inspection: normal inspection of the chest Resp Effort & Inspection: normal respiratory effort Auscultation: clear to auscultation bilaterally Cardio Palpation: normal PMI Rate: regular rate Rhythm: regular rhythm Heart sounds: S1 normal heart sound present, S2 normal heart sound present and no murmurs GI Palpation (GI): Soft to palpation, nontender and No hepatosplenomegaly present Auscultation: normal bowel sounds Rectal Exam - Male: Yes deferred Skin General skin exam: no rashes or lesions noted Neuro General: patient oriented x3, gait normal and moves all extremities Cranial nerves: Yes Equal, round and reactive pupils present Psych Appearance: grossly normal Mental Status: mental status grossly normal Assessment & Plan Assessment & Plan (1) GERD without esophagitis: Comment: Taking Omeprazole 40 mg prn every 1-2 weeks Code(s): K21.9 - Gastro-esophageal reflux disease without esophagitis Category: Medical (2) Adenomatous duodenal polyp: Comment: 09/2022 small polyp removed from duodenum and no adenomatous tissue was detected Code(s): D13.2 - Benign neoplasm of duodenum Category: Medical (3) History of colon polyps: Comment: 09/2022 Colonoscopy showed: Two small and one medium sized polyps removed Plan: Repeat Colonoscopy in 5 years due to a hx of adenomatous colon polyps. 03/2021 Colonoscopy: Three medium sized polyps removed - one polyp was retieved - TA on bx Mild hemorrhoids on retroflexed exam. Plan: Repeat Colonoscopy interval based on path results - in 1-2 years if polyps are adenomatous and due to suboptimal prep in the cecum. 04/2018 colonoscopy was performed by Dr. Weber and 5 small adenomatous polyps were removed Repeat colonoscopy is due in 3 years - due in 04/2021. Code(s): Z86.010 - Personal history of colonic polyps Category: Medical (4) Elevated liver enzymes: Comment: Likely due to fatty liver. Anticipate LFTs will improve with continued weight loss Code(s): R74.8 - Abnormal levels of other serum enzymes Category: Medical (5) Fatty liver: Code(s): K76.0 - Fatty (change of) liver, not elsewhere classified Category: Medical (6) Morbid obesity: Comment: 12/22/22 Referred to bariatric surgery Code(s): E66.01 - Morbid (severe) obesity due to excess calories Category: Medical Plan 74-year-old male followed in GI for GERD. His GERD symptoms have improved after he lost weight and are well controlled with omeprazole 40 mg prn every 1-2 weeks. Patient has postnasal drip with frequent throat clearing which is persisting despite taking Flonase and getting allergy shots. Did not follow up with allergy shots since it was a 3 yr treatment Uses CPAP due for sleep apnea. 09/2022 upper endoscopy (GERD and FU of duodenal polyp) and Colonoscopy (FU of colon polyps) were performed and findings as noted above 12/22/22 Pt referred to Bariatric surgery - has seen the Leather Toggler and continued to gain weight Fatty liver on imaging studies with normal LFTs. 03/14/24 Reluctant to have bariatric surgery due to concern for complications due to his age. He is willing to see them for medical wt loss - referral sent. Heartburn is gone - taking Omeprazole as needed. Follow-up appointment in 8 months Orders: Referrals Bariatric Surgery Referral E66.01 - Morbid (severe) obesity due to excess calories Coding Level of Care Code Est Pt Level 3 (78952) Diagnoses GERD without esophagitis K21.9 Adenomatous duodenal polyp D13.2 History of colon polyps Z86.010 Elevated liver enzymes R74.8 Fatty liver K76.0 Morbid obesity E66.01 Time Spent (min) 18
[2024-03-14 07:40] VITALS: BP 119/61; PULSE 51; BMI 41.3
== END 2024-03-14 08:44 | disposition home or self-care (01) ==
PROVIDERS: PCP Nurse Practitioner Family; Visit Provider Internal Medicine Gastroenterology
DX: K21.9 Gastro-esophageal reflux disease without esophagitis (principal); D13.2 Benign neoplasm of duodenum; Z86.010 Personal history of colon polyps; R74.8 Abnormal levels of other serum enzymes; K76.0 Fatty (change of) liver, not elsewhere classified; E66.01 Morbid (severe) obesity due to excess calories
CPT/HCPCS: 99213

== ENCOUNTER → 2024-03-14 07:26 | Outpatient (BNVA) | payer OTHER, SELFPAY | PROVIDERS: PCP Nurse Practitioner Family; Visit Provider Internal Medicine Gastroenterology | DX: K76.0 Fatty (change of) liver, not elsewhere classified (principal); K21.9 Gastro-esophageal reflux disease without esophagitis; E78.5 Hyperlipidemia, unspecified; E66.01 Morbid (severe) obesity due to excess calories; D13.2 Benign neoplasm of duodenum; R74.8 Abnormal levels of other serum enzymes; Z68.41 Body mass index [BMI] 40.0-44.9, adult; Z86.010 Personal history of colon polyps | CPT/HCPCS: 99212 ==

== ENCOUNTER 2024-03-22 14:49 | Outpatient (AMB) | payer OTHER, SELFPAY ==
--- NOTE | 2024-03-22 15:18 | A.OFFVIS_ITS ---
Intake Visit Reasons: cysto/med review Intake Note: Patient is Present for Cystoscopy/Med Review Urology Med: Terazosin,Finasteride, Tadalafil Antibiotic Allergy: None Blood Thinner: None URO- G Disposable Cystoscope lot: [id number] exp:09/27/2026 Women Nurse Required: No Accompanied by: Self / Same As Patient Allergies No Known Allergies [No Known Allergies*] Allergy (Verified 04/12/24 14:40) Medication List - Last Reconciled 03/22/24 by Mark Marie MD allopurinol 200 mg (2 x 100 mg) PO BID atenolol 100 mg (2 x 50 mg) PO DAILY CPAP (CPAP Machine/Device) As directed escitalopram oxalate 10 mg PO DAILY finasteride 5 mg PO DAILY 90 days fluticasone propionate 50 mcg/actuation 1 spray intranasal BID 30 days ibuprofen 600 mg PO Q8H PRN omeprazole 40 mg PO DAILY PRN oxcarbazepine 300 mg PO BID tadalafil 20 mg PO ONCE PRN 30 days tamsulosin mg PO DAILY terazosin 5 mg PO BEDTIME 90 days HPI Comments Details: Tyrese is a pleasant male. He is seen for the following urologic issues - renal cyst - bladder outlet obstruction - erectile dysfunction Combination prostate therapy Cystoscopy enlarged prostate Good clinical control Six-month follow-up Mentioned erectile dysfunction On demand 20 mg tadalafil trial Stable renal cyst - no follow-up recommended Lower urinary tract symptoms Hesitancy weakness of stream Progressive symptoms Prior therapy includes tamsulosin Bladder ultrasound 02/08 low PVR, 70 g prostate Renal cyst Detected during recent abdominal imaging Imaging - 02/06 1.7 cm left renal cyst on ultrasound - 02/08 renal ultrasound bilateral 1-2 cm cysts - no follow-up recommended by Radiology Natural history of renal cyst discussed [facility] Medical History Hypertension Dyspnea PLMD (periodic limb movement disorder) Morbid obesity with BMI of 40.0-44.9, adult NAFL (nonalcoholic fatty liver) Cyst of left kidney Limb swelling DESIREE (obstructive sleep apnea) Hyperlipidemia Gout GERD without esophagitis Surgical History Hx of total knee replacement Hx of endoscopy History of colonoscopy Family History Father Family history of high blood pressure Mother Hx of rheumatoid arthritis Social History (Updated 04/12/24 @ 14:42 by NADEEM Ricardo) Household Members: Spouse Housing: House Alcohol intake: current Alcohol intake frequency: former alcohol drinker Patient Tobacco Use Status: Former Tobacco user Tobacco use type: Cigarette Years Smoked: 5 years e-Cigarette/Vaping Use: Never Used Second Hand Smoke Exposure: No Current occupational status: retired Current occupation: rt hand Cognitive needs: No Hearing needs: No Vision needs: Yes Review of Systems Const Denies chills and Denies fever(s) Card Reports no additional complaints and Denies syncope Resp Denies cough GI Denies abdominal pain and Denies heartburn Reports as per HPI and Denies change in libido Neuro Denies syncope Psych Denies change in libido Endo Denies change in libido Physical Exam Const General: cooperative, healthy appearing, comfortable and no acute distress Orientation/consciousness: patient oriented x3 HEENT Face and sinus: Yes normal facial exam Mouth: moist mucous membranes Neck Neck: Yes normal visual inspection, Yes full ROM and Yes trachea midline Chest Chest palpation & inspection: normal inspection of the chest Resp Effort & Inspection: normal respiratory effort, able to speak in complete sentences and no respiratory distress GI Inspection: Yes normal to inspection Back/Spine/Pelvis Cervical Spine: normal cervical lordosis Thoracic/Lumbar Spine: thoracic and lumbar spine normal to inspection Skin General skin exam: no rashes or lesions noted Neuro General: patient oriented x3, gait normal, tone normal and moves all extremities Extrem General: Yes normal to inspection and Yes capillary refill normal Office Procedures Cystoscopy Consent Discussed risk and benefit or proposed procedure with the patient. Information consent for procedure given to the patient. Discussed technical aspects, risks, benefits and alternatives in full. Addressed all of the patient's questions and concerns regarding the procedure. The patient demonstrated knowledge and understanding. They wish to proceed with this procedure. Preparation The patient was prepped in the usual manner. A furnace builder was present and in the room. Genitalia was prepped with betadine solution in a sterile manner. Lidocaine Jelly 2% was placed into the urethra and 16Fr flexible Olympus cystoscope was inserted into the meatus after adequate lubrication. Procedure Cystoscopy performed using a disposable InsureWorxvue digital 16 Urdu cystoscope. Meatus circumcised Urethra anterior and posterior urethra normal Prostatic Urethra mild trilobar hypertrophy Bladder examination with retroflexion of cystoscope Bladder Orifices normal shape and position Bladder Capacity median Trabeculations grade 1 Cellule Formation - Diverticulum Formation - Mucosal Erythema - Bladder Tumor - 10069-[id number] DISPOSABLE SCOPE URO-G FLEXIBLE SCOPE Procedure code (CPT) selection complete Office Meds lidocaine HCl 2 % mucosal jelly in applicator Performing Provider: Mark Marie MD [place] [facility] [facility] Administered by: Martínez Roberto LPN on 03/22/24 15:48 Dose Route Admin Location Dispensed Lot Number Expiration Date ND Retanned Leather Roller 10 mL intra-urethral 10 mL nitrofurantoin monohydrate/macrocrystals 100 mg capsule Performing Provider: Mark Marie MD [place] [facility] [place] [facility] Administered by: Martínez Roberto LPN on 03/22/24 15:48 Dose Route Admin Location Dispensed Lot Number Expiration Date ND Retanned Leather Roller 100 mg PO 1 cap naproxen 500 mg tablet Performing Provider: Mark Marie MD [place] [facility] [place] [facility] Administered by: Martínez Roberto LPN on 03/22/24 15:48 Dose Route Admin Location Dispensed Lot Number Expiration Date ND Retanned Leather Roller 500 mg PO 1 tab Results AMB Urinalysis, Automated UA Leukoctes 0 Berenice/uL Last Edit by NADEEM Lainez on 03/22/24 15:36 UA Nitrite Negative Last Edit by Eugenie Loyd Reji on 03/22/24 15:36 UA Urobilinogen 0.2 mg/dL Last Edit by NADEEM Lainez on 03/22/24 15:3 6 UA Protein 0 mg/dL Last Edit by Eugenie Loyd [facility] on 03/22/24 15:36 UA pH 6.0 Last Edit by NADEEM Lainez on 03/22/24 15:36 UA Blood 0 Ej/uL Last Edit by NADEEM Lainez on 03/22/24 15:36 UA Specific [facility] 1.015 Last Edit by NADEEM Lainez on 03/22/24 15: 36 UA Ketone Negative Last Edit by NADEEM Lainez on 03/22/24 15:36 UA Bilirubin 0 mg/dL Last Edit by NADEEM Lainez on 03/22/24 15:36 UA Glucose 0 mg/dL Last Edit by NADEEM Lainez on 03/22/24 15:36 Results Reviewed Results Reviewed: Laboratory Last Values Urine pH (Auto) 6.0 03/22/24 15:26 Specific [facility] (Auto) 1.015 03/22/24 15:26 Urine Protein (Auto) 0 mg/dL 03/22/24 15:26 Glucose (UA)(Auto) 0 mg/dL 03/22/24 15:26 Urine Ketones (Auto) Negative 03/22/24 15:26 Urine Blood (Auto) 0 Ej/uL 03/22/24 15:26 Urine Nitrite (Auto) Negative 03/22/24 15:26 Urine Bilirubin (Auto) 0 mg/dL 03/22/24 15:26 Urine Urobilinogen (Auto) 0.2 mg/dL 03/22/24 15:26 Leukocyte Esterase (Auto) 0 Berenice/uL 03/22/24 15:26 Assessment & Plan Assessment & Plan (1) Bladder outlet obstruction: Code(s): N32.0 - Bladder-neck obstruction Category: Medical (2) Erectile dysfunction: Code(s): N52.9 - Male erectile dysfunction, unspecified Category: Medical Plan Six-month follow-up Continue combination therapy Orders: Orders AMB Cystoscopy 03/22/24 N32.0 - Bladder-neck obstruction AMB Urinalysis Automated 03/22/24 Z13.9 - Encounter for screening, unspecified Medications: Changed From terazosin 5 mg PO BEDTIME 30 days 30 caps 1RF N32.0 - Bladder-neck obstruction To terazosin 5 mg PO BEDTIME 90 caps 1RF 90 days N32.0 - Bladder-neck obstruction Refilled finasteride 5 mg PO DAILY 90 tabs 1RF 90 days N32.0 - Bladder-neck obstruction, N40.1 - Benign prostatic hyperplasia with lower urinary tract symptoms, N13.8 - Other obstructive and reflux uropathy, R33.9 - Retention of urine, unspecified Patient Instructions: Imaging studies, laboratory and physical exam results were discussed and reviewed in detail. No major barriers to patient understanding were identified. An opportunity to ask questions regarding the treatment plan was provided. All questions were answered. The patient expressed understanding and agreement with the above treatment plan. The patient is aware they should contact our office by phone for worsening of their current condition or the appearance of new urologic symptoms. Compliance is encouraged with any medications and followup testing that is ordered. It is a privilege to participate in the urologic care of your patient. If you have any questions or concerns regarding treatment for the above conditions, or other urologic issues, please do not hesitate to contact me. The office telephone contact is [phone]. This note is constructed using voice recognition software. While every effort has been made to ensure accuracy barber tool sharpener errors may have been included. Yours sincerely, Dr Mark Marie MD, [facility] - Urology Providers of Expert, Compassionate Care for the Genitourinary System Coding Level of Care Code Est Pt Level 3 (24508) Diagnoses Bladder outlet obstruction N32.0 Erectile dysfunction N52.9 CPT Codes Cystoscopy - CPT: 42090-[id number] ([id number])
== END 2024-03-22 15:57 | disposition home or self-care (01) ==
PROVIDERS: PCP Nurse Practitioner Family; Visit Provider Urology
DX: N32.0 Bladder-neck obstruction (principal); N52.9 Male erectile dysfunction, unspecified
CPT/HCPCS: 52000; 99213

== ENCOUNTER → 2024-03-22 14:49 | Outpatient (BNVA) | payer OTHER, SELFPAY | PROVIDERS: PCP Nurse Practitioner Family; Visit Provider Urology | DX: N40.1 Benign prostatic hyperplasia with lower urinary tract symptoms (principal); N32.0 Bladder-neck obstruction; R33.8 Other retention of urine; N13.8 Other obstructive and reflux uropathy; N52.9 Male erectile dysfunction, unspecified | CPT/HCPCS: 52000; 81003; 99212 ==

== ENCOUNTER 2024-04-01 11:13 | Outpatient (AMB) | payer MEDICARE, SELFPAY ==
--- NOTE | 2024-04-01 11:16 | A.OFFPC_ITS ---
Vital Signs 04/01/24 11:18 Height 5 ft 9 in Weight 273 lb BMI 40.3 BP 118/72 Blood Pressure Location Rt brachial Position Sitting Pulse 79 Pulse Source Pulse Oximeter Pulse Oximetry (%) 97 Oxygen Delivery Method Room Air Intake Visit Reasons: 6 Month F/U Intake Note: pt is here for 6 month follow up [place] [employer] Telephone Clerk Required: No Accompanied by: Self / Same As Patient Allergies No Known Allergies [No Known Allergies*] Allergy (Verified 04/01/24 11:34) Medication List - Last Reconciled 04/01/24 by CRESENCIO Pak allopurinol 200 mg (2 x 100 mg) PO BID atenolol 100 mg (2 x 50 mg) PO DAILY CPAP (CPAP Machine/Device) As directed escitalopram oxalate 10 mg PO DAILY finasteride 5 mg PO DAILY 90 days fluticasone propionate 50 mcg/actuation 1 spray intranasal BID 30 days ibuprofen 600 mg PO Q8H PRN omeprazole 40 mg PO DAILY PRN oxcarbazepine 300 mg PO BID tadalafil 20 mg PO ONCE PRN 30 days tamsulosin mg PO DAILY terazosin 5 mg PO BEDTIME 90 days Tobacco use date assessed: 10/11/23 Fall risk assessment: No Falls in past year Last assessed Fall Risk: 04/01/24 Dental Screening Dental Screen Date: 10/11/23 HPI 6 Month F/U HPI Details HTN: Blood pressure is stable, managed with atenolol 100mg. Will order labs. Denies chest pain, shortness of breath, headache, dizziness, and blurred vision. Pt has been working on his diet and exercising. He is losing weight. Pt reports that his breathing has improved and he has less knee pain. Pt is following up with GI, nephrology, pulmonology, and urology. Pt could not afford the ED med sent by urology. Will send/try sildenafil. [facility] Medical History Hypertension Dyspnea PLMD (periodic limb movement disorder) Morbid obesity with BMI of 40.0-44.9, adult NAFL (nonalcoholic fatty liver) Cyst of left kidney Limb swelling DESIREE (obstructive sleep apnea) Hyperlipidemia Gout GERD without esophagitis Surgical History Hx of total knee replacement Hx of endoscopy History of colonoscopy Family History Father Family history of high blood pressure Mother Hx of rheumatoid arthritis Social History Household Members: Spouse Housing: House Alcohol intake: current Alcohol intake frequency: former alcohol drinker Patient Tobacco Use Status: Never used Tobacco Tobacco use type: Cigarette Years Smoked: 5 years e-Cigarette/Vaping Use: Never Used Second Hand Smoke Exposure: No Current occupational status: retired Current occupation: rt hand Cognitive needs: No Hearing needs: No Vision needs: Yes Questionnaire PHQ-9 Over the last 2 weeks, how often have you been bothered by any of the following problems? 1. Little interest or pleasure in doing things: not at all 2. Feeling down, depressed, or hopeless: not at all 3. Trouble falling or staying asleep, or sleeping too much: not at all 4. Feeling tired or having little energy: not at all 5. Poor appetite or overeating: not at all 6. Feeling bad about yourself - or that you are a failure or have let yourself or your family down: not at all 7. Trouble concentrating on things, such as reading the newspaper or watching television: not at all 8. Moving or speaking so slowly that other people could have noticed. Or the opposite - being so fidgety or restless that you have been moving around a lot more than usual: not at all 9. Thoughts that you would be better off or of hurting yourself in some way: not at all Total score: 0 Depression Screening Interpretation: Negative Depression Screening Done: Yes 18786 - PHQ-9 Billing: Yes Source: Developed by Drs. Patrick Wilson, Kriss Garza, Tom Juárez and colleagues, with an educational awilda from [employer]. Thrive Questionnaire Date Thrive assessed: 04/01/24 I am a: Patient What is your living situation today?: I have a steady place to live Within the past 12 months, did the food you bought not last and you didn't have the money to get more?: Never true Within the past 12 months, did you worry whether your food would run out before you got money to buy more?: Never true Do you have trouble paying for medicines?: No Do you have trouble getting transportation to medical appointments?: No Do you have trouble paying your heating and electricity bill?: No Do you have trouble taking care of your child, family member or friend?: No Do you have trouble with day-to-day activities such as bathing, preparing meals, shopping, managing finances, etc.?: No Are you currently unemployed and looking for a job?: No Are you interested in more education?: No Please select the resources that you would like help with: None Currently or been in a relationship where the following occur: No concerns reported THRIVE Score: 0 AUDIT C Alcohol Use Questionnaire (AUDIT-C) 1. How often do you have a drink containing alcohol?: Never 3. How often do you have six or more drinks on one occasion?: Never Total Score: 0 Score Reviewed/Action Taken: Yes MAREK-7 AMB Questionnaire MAREK-7 Date MAREK - 7 assessed: 04/01/24 Feeling nervous, anxious, or on edge: 0 = Not at all Not being able to stop or control worryin = Not at all Worrying too much about different things: 0 = Not at all Trouble relaxin = Not at all Being so restless that it is hard to sit still: 0 = Not at all Becoming easily annoyed or irritable: 0 = Not at all Feeling afraid as if something awful might happen: 0 = Not at all Total MAREK-7 score (0-4 normal; 5-9 mild; 10-14 moderate; 15-21 severe): 0 Source: Developed by Drs. Patrick Wilson, Kriss Garza, Tom Juárez and colleagues, with an educational awilda from [employer]. MAREK-7 Assessment Billing MAREK-7 Assessment Tool: MAREK-7 Assessment 17577 Review of Systems Const Reports as per HPI Physical exam (Primary Care) Vital Signs: Last Vital Signs Pulse 79 04/01/24 11:18 BP 118/72 04/01/24 11:18 Pulse Ox 97 04/01/24 11:18 Oxygen Delivery Method Room Air 04/01/24 11:18 BMI result Body Mass Index 40.3 Tobacco/Smoking Status: Tobacco use Status Tobacco use date assessed 10/11/23 04/01/24 11:21 Patient Tobacco Use Status Never used Tobacco 04/01/24 11:21 Tobacco use type Cigarette 04/01/24 11:21 e-Cigarette/Vaping Use Never Used 04/01/24 11:21 PHQ-9: PHQ-9 Score PHQ-9: Total score 0 04/01/24 11:36 Depression Screening Interpretation: Negative Thrive Assessment: Date of Thrive Assessment Date Thrive assessed 04/01/24 04/01/24 11:21 Currently or been in a relationship where the following occur: No concerns reported Const General: cooperative Nutritional Appearance: obese Orientation/consciousness: patient oriented x3 Resp Effort & Inspection: normal respiratory effort Auscultation: clear to auscultation bilaterally Cardio Rate: regular rate Rhythm: regular rhythm Heart sounds: S1 normal heart sound present and S2 normal heart sound present Neuro General: patient oriented x3 Extrem Right lower extremity: no edema Left lower extremity: no edema Psych Appearance: grossly normal Mental Status: mental status grossly normal Speech and movement: Normal speech and movement present Affect: normal affect Attitude: cooperative Thought process: Normal thought process present Thought content: Normal thought content present Insight: Good insight present (Psych) Judgement: Good judgement present (Psych) Coding Level of Care Code Est Pt Level 3 (64949) Diagnoses Hypertension I10 Screening PSA (prostate specific antigen) Z12.5 Screening for tuberculosis Z11.1 Additional Codes MAREK-7 Assessment Billing - MAREK-7 Assessment Tool: MAREK-7 Assessment 06014 ([id number]) Assessment & Plan Assessment & Plan (1) Hypertension: Code(s): I10 - Essential (primary) hypertension Category: Medical Plan: Stable, labs ordered (2) Screening PSA (prostate specific antigen): Code(s): Z12.5 - Encounter for screening for malignant neoplasm of prostate Category: Medical Plan: PSA ordered (3) Screening for tuberculosis: Code(s): Z11.1 - Encounter for screening for respiratory tuberculosis Category: Medical Plan: t spot entered (needs for employment) Plan The patient agreed to the use of a medical education manager for this encounter. Scribed for CRESENCIO Chen by omar Jansen scribe, on 04/01/2024 at 11:30 EST. Orders: Orders Complete Blood Count Auto Diff Today I10 - Essential (primary) hypertension Comprehensive [place]. Panel Fast Today I10 - Essential (primary) hypertension TSH reflex Free T4 Today I10 - Essential (primary) hypertension UA CC w/rflx Micro + Cult Today I10 - Essential (primary) hypertension Lipid Panel Today I10 - Essential (primary) hypertension T Spot TB Today Z11.1 - Encounter for screening for respiratory tuberculosis Prostate Specific Antigen Scr Today Z12.5 - Encounter for screening for malignant neoplasm of prostate Medications: New sildenafil administer 30 minutes to 4 hours before activity 25 mg PO DAILY PRN 14 tabs 1RF sexual activity Discontinued tadalafil On demand medication take 60 minutes before intended activity Discontinued Reason: Insurance Denied 20 mg PO ONCE 30 days PRN 30 tabs 0RF sexual activity E11.69 - Type 2 diabetes mellitus with other specified complication, N52.1 - Erectile dysfunction due to diseases classified elsewhere
[2024-04-01 11:18] VITALS: BP 118/72; PULSE 79; O2SAT 97; BMI 40.3
== END 2024-04-01 11:56 | disposition home or self-care (01) ==
PROVIDERS: PCP Nurse Practitioner Family; Visit Provider Nurse Practitioner Family
DX: I10 Essential (primary) hypertension (principal); Z12.5 Encounter for screening for malignant neoplasm of prostate; Z11.1 Encounter for screening for respiratory tuberculosis

== ENCOUNTER → 2024-04-01 11:13 | Outpatient (BNVA) | payer MEDICARE, SELFPAY | PROVIDERS: PCP Nurse Practitioner Family; Visit Provider Nurse Practitioner Family | DX: I10 Essential (primary) hypertension (principal); E78.5 Hyperlipidemia, unspecified; K21.9 Gastro-esophageal reflux disease without esophagitis | CPT/HCPCS: 96127; 99212 ==

== ENCOUNTER 2024-04-12 14:29 | Outpatient (AMB) | payer OTHER, SELFPAY ==
[2024-04-12 14:39] VITALS: BP 124/70; PULSE 55; O2SAT 96; BMI 39.7
--- NOTE | 2024-04-12 14:39 | A.OFFVIS_ITS ---
Vital Signs 04/12/24 14:39 Height 5 ft 9 in Weight 269 lb BMI 39.7 BP 124/70 Blood Pressure Location Rt brachial Position Sitting Pulse 55 Pulse Source Pulse Oximeter Pulse Oximetry (%) 96 Oxygen Delivery Method Room Air Intake Visit Reasons: Sleep apnea Inspector Crystal Required: No Allergies No Known Allergies [No Known Allergies*] Allergy (Verified 04/12/24 14:40) HPI Comments Details: The patient is a 74-year-old gentleman with morbid obesity and severe obstructive sleep apnea. He had a sleep study back in 2018 demonstrating an AHI of 82 events an hour with significant desaturation. The patient had a titration study was subsequently placed on PAP. [facility] and had been using his PAP regularly. However, the patient had issues with compliance. He was also lost to follow-up. Therefore he was an active from his [employer]. The patient however started using his PAP therapy again even though he does not have any new supplies she is because his symptoms were getting much worse. The patient has significant daytime drowsiness with an Nisswa score of 14/24. Once he started using the PAP therapy his symptoms improved. However, he is not able to get any supplies from his [employer] company since he is inactive. The patient needs an urgent sleep study in order to get reactivated with his [employer] company at this time. In the meantime the patient complains of dyspnea on exertion. Moderate severity. He did have a workup including PFT which demonstrated a mild isolated diffusion impairment likely from underlying pulmonary vascular disease. The patient continues to have shortness of breath he denies any chest pains. He has not had an EKG. At least documented in our system since 2017. It demonstrated some nonspecific T-wave changes. He has not had a cardiac evaluation. 02/01/2021 the patient is here for a pulmonary follow-up visit. The patient continues to have significant daytime drowsiness. He has been using CPAP for many years with significant improvement. His current settings on CPAP his AHI was still 15. The patient is no longer active with a [employer] company. Therefore we had him him repeat home sleep study demonstrating an AHI 42. Patient understands that he has severe sleep apnea. He does state that he did have a titration study couple years ago and after that his CPAP was adjusted and has helped. Therefore, this point will request a BiPAP to be initiated for the patient to treat his severe sleep apnea. I did contact the local [employer] company in order to do so. Once he is on BiPAP will be able to adjusted. If the BiPAP to having hard time adjusting to decrease his AHI then at that point they will be reasonable to have him have a repeat titration study. In the meantime he did have an abnormal EKG as he was having some chest discomfort. Still some nonspecific T-wave changes. He did undergo a cardiac stress echo which demonstrated no evidence of any ischemia which is reassuring. The patient continues with respiratory therapy. Will follow up in several weeks once he started his new BiPAP. 03/15/2021 the patient is here for a pulmonary follow-up visit. The patient continues to struggle with his CPAP. the right his machine his AHI was significantly elevated at 15. We did try to get in touch with his [employer] company in order to change his CPAP to a BiPAP in view of his failing CPAP therapy. However, after no response from the [employer] company did call. Apparently the patient has been discontinued and he is considered in active with a [employer] company. Previously with [employer]. Therefore, the only way of getting him reactivated with a [employer] company will be with a repeat home sleep study. The patient does have an elevated Nisswa score of 11 when he does not use CPAP. Although he is pretty compliant with the CPAP at this time. However, he is not getting any supplies and he has been using the same supplies now apparently for years. Therefore we need to get him a sleep study in order to be able to address his needs. 08/27/2021 the patient is here for a pulmonary follow-up visit. Overall the patient has been doing about the same. Continues to have daytime drowsiness. He did have a repeat sleep study which initially demonstrating an AHI of 8.7. He was titrated on CPAP and he was able to be stabilized on CPAP of 11 cm. His oxygenation also improved. He has significant REM during the sleep study suggesting that he was getting appropriate sleep. Therefore, will continue with his current CPAP although will adjust his CPAP settings to accurately meet his needs. Based on his persistent sleep apnea will see about getting him reactivated with his [employer] company. 11/30/2021 the patient is here for a pulmonary follow-up visit. Overall the patient is doing well. He is tolerating his nasal cradle mask well. He did bring his PAP therapy in. Appears to have a VPAP auto. seems to be respondi ng well to the current therapy. His AHI appears to be between 4-8 events an hour. Although half of the events appeared to be central. Explained to the patient that he has a complex sleep apnea. If we aggressively treat the obstructive component we can always worsen the central component. Therefore decrease the pressure some. But more than that I am concerned that he has significant air leak primarily because the mouth being open. He does like his nasal n30 mask. I did provide him with a chinstrap. I will also request a chinstrap from his [employer] company. He will return in 3 months and bring his machine to further adjusted. I am hopeful that he continues to do well and we can try to decrease the central apneas further. From a respiratory status the patient is doing well denies any chest pains or any shortness of breath. He does not use any inhalers. He does have allergies at this time. Does have nasal congestion and a postnasal drip. [id number] severity. 02/28/2022 the patient is here for a pulmonary follow-up visit. Overall he is doing well. He has switch over to a nasal mask because the cradle in the pillows were not effective for him. However, he does not always use the chinstrap. He does complaint of a dry mouth. Urine he has some gingival disease and some to DKA. We talked about the importance of maintaining good do interval hygiene by avoiding dry mouth. Explained to him that this is primarily due to the Armin gaping through his mouth when he is using the nasal mask. I did highly recommend he go for fullface mask. I did have a large F20 mask available for him. I will also submit 1 to his [employer] company. Current the PAP settings are good. His AHI is down to 1.6 events an hour. Therefore will continue with current settings. From a respiratory status is doing okay. He has been increased dyspnea on exertion. Mild in severity. Although he does came back from vacation and he had lot of dietary indiscretion. He did note some lower extremity edema and also started developing gout-like symptoms. 08/29/2022 the patient is here for a pulmonary follow-up visit. Overall the patient has been doing okay. He continues to use his PAP therapy. His AHI continuesis better, AHI 2.6.. This overall is better than before. The patient does have a nasal mask. We had requested an N20 mask back in August through his DME, [employer]. But they have yet to provide the right mask. I did provide him another sample to help him continue to tolertae the therapy. I will request again the N20 mask. He is having issue with his teeth, He does have an air leakage through the mouth. He needs to use the hcadwick strap more regularly. He has noticed some increase LE edema. We did talk about starting a low sodium diet. 04/12/2024 the patient is here for a pulmonary follow-up visit. The patient overall has been doing well. He continues use the VPAP. The VPAP therapy has been affecting beneficial. He does have an AHI of about 2.3. This is about average for him. Sometimes it goes up any may be positional. He was wondering about other alternative therapy such as the inspire. I did explain to him the relative contraindications due to his body habitus. Also the fact that it will not work as well specially with his very severe apnea. The patient had an AHI of 42 events an hour and now down to less than 3 which is very reassuring. He is going to monitor closely his AHI and monitor closely disposition try not to lay on his back so much. He is also working on weight loss. He already lost about 30 lb since we last saw him. This is very good. In addition to that is working on exercise. His respiratory exam is fairly good. And his all extremities also have improved with less edema. [facility] Medical History Hypertension Dyspnea PLMD (periodic limb movement disorder) Morbid obesity with BMI of 40.0-44.9, adult NAFL (nonalcoholic fatty liver) Cyst of left kidney Limb swelling DESIREE (obstructive sleep apnea) Hyperlipidemia Gout GERD without esophagitis Surgical History Hx of total knee replacement Hx of endoscopy History of colonoscopy Family History Father Family history of high blood pressure Mother Hx of rheumatoid arthritis Social History (Updated 04/12/24 @ 14:42 by NADEEM Ricardo) Household Members: Spouse Housing: House Alcohol intake: current Alcohol intake frequency: former alcohol drinker Patient Tobacco Use Status: Former Tobacco user Tobacco use type: Cigarette Years Smoked: 5 years e-Cigarette/Vaping Use: Never Used Second Hand Smoke Exposure: No Current occupational status: retired Current occupation: rt hand Cognitive needs: No Hearing needs: No Vision needs: Yes Review of Systems Const Denies chills and Denies fever(s) Eyes Denies blurry vision ENT Reports Normal hearing present, Denies vertigo, Denies dizziness, Reports dry mouth, Reports nasal congestion, Reports nasal discharge and Denies sore throat Card Denies chest pain at rest, Denies chest pain with activity, Denies diaphoresis, Reports leg edema, Denies dyspnea and Denies dyspnea on exertion Resp Reports cough, Denies dyspnea, Denies dyspnea on exertion and Denies wheezing GI Denies abdominal pain, Denies melena, Denies hematochezia, Denies constipation, Denies diarrhea and Denies loose stools Denies hematuria Musc Reports arthralgias, Reports joint swelling, Reports limited range of motion and Denies tingling Skin/Breast Denies lesions Neuro Reports Normal hearing present, Denies Abnormal speech present, Denies vertigo, Denies dizziness and Denies tingling Psych Denies anxiety, Denies depression, Denies homicidal ideation, Denies suicidal ideation and Denies other (substance abuse) Aller/Immun Denies wheezing Physical Exam Vital Signs: Last Vital Signs Pulse 55 04/12/24 14:39 BP 124/70 04/12/24 14:39 Pulse Ox 96 04/12/24 14:39 Oxygen Delivery Method Room Air 04/12/24 14:39 BMI result Body Mass Index 39.7 Const General: healthy appearing and no acute distress Nutritional Appearance: average body habitus Orientation/consciousness: patient oriented x3 Limitations: no limitations HEENT Head: Yes normal to inspection Ears: hearing grossly normal bilaterally Mouth: Normal oral and palatal mucosa present Eyes Sclerae: sclerae normal Pupils: Equal, round and reactive pupils present Neck Neck: Yes normal visual inspection Chest Chest palpation & inspection: normal inspection of the chest Resp Effort & Inspection: normal respiratory effort Auscultation: clear to auscultation bilaterally Cardio Palpation: normal PMI Rate: regular rate Rhythm: regular rhythm Heart sounds: S1 normal heart sound present, S2 normal heart sound present and no murmurs GI Palpation (GI): Soft to palpation, nontender and No hepatosplenomegaly present Auscultation: normal bowel sounds Rectal Exam - Male: Yes deferred Skin General skin exam: no rashes or lesions noted Neuro General: patient oriented x3, gait normal and moves all extremities Cranial nerves: Yes Equal, round and reactive pupils present and Yes Normal hearing present Speech: No Abnormal speech present Extrem General: Yes edema Psych Appearance: grossly normal Mental Status: mental status grossly normal Assessment & Plan Assessment & Plan (1) DESIREE (obstructive sleep apnea): Comment: continue autoVPAP Code(s): G47.33 - Obstructive sleep apnea (adult) (pediatric) Category: Medical (2) Dyspnea: Code(s): R06.00 - Dyspnea, unspecified Category: Medical Qualifiers: Dyspnea type: dyspnea on exertion Qualified Code(s): R06.00 - Dyspnea, unspecified (3) Limb swelling: Code(s): M79.89 - Other specified soft tissue disorders Category: Medical (4) PLMD (periodic limb movement disorder): Code(s): G47.61 - Periodic limb movement disorder Category: Medical Plan Continue VPAP auto, maximum pressure 18/12. Will request medium N20 mask again, DME Bon[facility]acio May benefit from Gabapentin for PLMD continue Flonase' Low sodium diet F/U 12 months Coding Level of Care Code Est Pt Level 4 (63970) Diagnoses DESIREE (obstructive sleep apnea) G47.33 Dyspnea on exertion R06.00 Dyspnea type: dyspnea on exertion Limb swelling M79.89 PLMD (periodic limb movement disorder) G47.61 Time Spent (min) 16
== END 2024-04-12 15:04 | disposition home or self-care (01) ==
PROVIDERS: PCP Nurse Practitioner Family; Visit Provider Hospitalist
DX: G47.33 Obstructive sleep apnea (adult) (pediatric) (principal); R06.00 Dyspnea, unspecified; M79.89 Other specified soft tissue disorders; G47.61 Periodic limb movement disorder
CPT/HCPCS: 99214

== ENCOUNTER → 2024-04-12 14:29 | Outpatient (BNVA) | payer OTHER, SELFPAY | PROVIDERS: PCP Nurse Practitioner Family; Visit Provider Hospitalist | DX: G47.33 Obstructive sleep apnea (adult) (pediatric) (principal); G47.61 Periodic limb movement disorder; M79.89 Other specified soft tissue disorders; R06.00 Dyspnea, unspecified | CPT/HCPCS: 99212 ==

== ENCOUNTER 2024-09-04 13:53 | Outpatient (AMB) | payer OTHER, SELFPAY ==
--- NOTE | 2024-09-04 13:53 | HO.NEPHOV_ITS ---
Vital Signs 09/04/24 13:54 Height 5 ft 9 in BP 130/80 Blood Pressure Location Lt brachial Position Sitting Pulse 64 Pulse Source Pulse Oximeter Pulse Oximetry (%) 97 Oxygen Delivery Method Room Air Intake Visit Reasons: 6 mon follow up/ Conf Yard Labor Supervisor Required: No Accompanied by: Self / Same As Patient Allergies No Known Allergies [No Known Allergies*] Allergy (Verified 09/04/24 13:55) Medication List - Last Reconciled 09/04/24 by Riccardo Nunez MD allopurinol 200 mg (2 x 100 mg) PO BID atenolol 100 mg (2 x 50 mg) PO DAILY CPAP (CPAP Machine/Device) As directed escitalopram oxalate 5 mg PO DAILY finasteride 5 mg PO DAILY 90 days fluticasone propionate 50 mcg/actuation 1 spray intranasal BID 30 days hydroxyzine pamoate 25 mg PO BID ibuprofen 600 mg PO Q8H PRN meloxicam 7.5 mg PO DAILY omeprazole 40 mg PO DAILY 90 days oxcarbazepine 300 mg PO BID 30 days sildenafil 25 mg PO DAILY PRN tamsulosin mg PO DAILY terazosin 5 mg PO BEDTIME 90 days HPI Comments Details: Tyrese is a pleasant 74-year-old man with a history of hypertension who has been referred for proteinuria. He has no history of diabetes mellitus. History of BPH and currently follows with Dr. Marie. s/p Cystoscopy Today he has no specific complaints. [facility] Medical History Hypertension Dyspnea PLMD (periodic limb movement disorder) Morbid obesity with BMI of 40.0-44.9, adult NAFL (nonalcoholic fatty liver) Cyst of left kidney Limb swelling DESIREE (obstructive sleep apnea) Hyperlipidemia Gout GERD without esophagitis Surgical History Hx of total knee replacement Hx of endoscopy History of colonoscopy Family History Father Family history of high blood pressure Mother Hx of rheumatoid arthritis Social History Household Members: Spouse Housing: House Alcohol intake: current Alcohol intake frequency: former alcohol drinker Patient Tobacco Use Status: Former Tobacco user Tobacco use type: Cigarette Years Smoked: 5 years e-Cigarette/Vaping Use: Never Used Second Hand Smoke Exposure: No Current occupational status: retired Current occupation: rt hand Cognitive needs: No Hearing needs: No Vision needs: Yes Review of Systems Neuro Denies confusion Psych Denies confusion Physical Exam Vital Signs: Last Vital Signs Pulse 64 09/04/24 13:54 BP 130/80 09/04/24 13:54 Pulse Ox 97 09/04/24 13:54 Oxygen Delivery Method Room Air 09/04/24 13:54 Const General: No confusion Orientation/consciousness: No confusion Eyes General: appearance normal, both eyes and all related structures Visual Fontenot: normal visual fontenot by confrontation Neck Neck: Yes supple and Yes no JVD Resp Effort & Inspection: normal respiratory effort and respiratory effort not decreased Cardio Palpation: no palpable S3 and no palpable S4 Heart sounds: no rubs GI Inspection: Yes normal to inspection Palpation (GI): Soft to palpation Percussion: Yes normal to percussion Auscultation: normal bowel sounds General: Yes no CVA tenderness Back/Spine/Pelvis Back: no CVA tenderness Skin General skin exam: no petechiae and no purpura Neuro General: No confusion Extrem General: No clubbing and No edema Results Reviewed Nephrology Results: Hgb 15.2 g/dl (14.0-18.0) 02/10/24 WBC 5.5 X10*3/uL (4.8-10.8) 02/10/24 Plt Count 229 X10*3/uL (160-400) 02/10/24 Sodium 139 mmol/L (135-145) 02/10/24 Potassium 4.8 mmol/L (3.3-5.1) 02/10/24 Chloride 104 mmol/L (96-108) 02/10/24 Carbon Dioxide 27 mmol/L (22-29) 02/10/24 BUN 13 mg/dL (9-16) 02/10/24 Creatinine 1.03 mg/dL (0.5-1.4) 02/10/24 Calcium 9.7 mg/dL (8.4-10.2) 02/10/24 Urine Protein Trace mg/dL (Neg-Trace) 02/10/24 Urine Creatinine 186.42 mg/dL 02/10/24 Assessment & Plan Assessment & Plan (1) Protein in urine: Code(s): R80.9 - Proteinuria, unspecified Category: Medical Plan 74-year-old man with a history of hypertension with the proteinuria and es sentially normal renal function. Recent urine protein creatinine ratio was 0.10. He has no significant proteinuria. We discussed importance of tight control blood pressure. He will benefit from weight loss. Blood pressure is well controlled. No absolute indication for MATTEO inhibitor since he has no significant proteinuria. I have reassured him. Encouraged him to stand low-sodium diet. Increase exercise activity. Microscopic hematuria in the setting of BPH and renal cyst. s/p Cystoscopy Orders: Orders Creatinine Urine Today R80.9 - Proteinuria, unspecified UA and rflx microscopic Today R80.9 - Proteinuria, unspecified Total Protein Urine Random Today R80.9 - Proteinuria, unspecified Coding Level of Care Code Est Pt Level 4 (45897) Diagnoses Protein in urine R80.9
[2024-09-04 13:54] VITALS: BP 130/80; PULSE 64; O2SAT 97
== END 2024-09-04 16:32 | disposition home or self-care (01) ==
LOC: HO.HKAM 13:53
PROVIDERS: PCP Nurse Practitioner Family; Visit Provider Internal Medicine Hypertension Specialist
DX: R80.9 Proteinuria, unspecified (principal)
CPT/HCPCS: 99214

== ENCOUNTER → 2024-09-04 13:53 | Outpatient (BNVA) | payer OTHER, SELFPAY | PROVIDERS: PCP Nurse Practitioner Family; Visit Provider Internal Medicine Hypertension Specialist | DX: R80.9 Proteinuria, unspecified (principal) | CPT/HCPCS: 99212 ==

== ENCOUNTER 2024-09-27 14:37 | Outpatient (AMB) | payer OTHER, SELFPAY ==
--- NOTE | 2024-09-27 15:00 | A.OFFVIS_ITS ---
Intake Visit Reasons: 6m/PVR Intake Note: Patient is present for 6M/PVR Urology Medication:FINASTERIDE,TERAZOSIN,ALLOPURINOL,SILDENAFIL,TAMSULOSIN Antibiotic Allergy:NONE Blood Thinner:NONE Reading Efficiency Course Director Required: No Allergies No Known Allergies [No Known Allergies*] Allergy (Verified 09/27/24 15:02) HPI Comments Details: Tyrese is a pleasant male. He is seen for the following urologic issues - renal cyst - bladder outlet obstruction - erectile dysfunction Six-month follow-up Combination prostate therapy Cystoscopy enlarged prostate Good clinical control Stable renal cyst - no follow-up recommended Does discuss leakage at end of urination. Would recommend pelvic floor exercises. Information sent. Refills provided Twelve month follow-up Lower urinary tract symptoms Hesitancy weakness of stream Progressive symptoms Prior therapy includes tamsulosin Bladder ultrasound 02/08 low PVR, 70 g prostate Renal cyst Detected during recent abdominal imaging Imaging - 02/06 1.7 cm left renal cyst on ultrasound - 02/08 renal ultrasound bilateral 1-2 cm cysts - no follow-up recommended by Radiology Natural history of renal cyst discussed [facility] Medical History Hypertension Dyspnea PLMD (periodic limb movement disorder) Morbid obesity with BMI of 40.0-44.9, adult NAFL (nonalcoholic fatty liver) Cyst of left kidney Limb swelling DESIREE (obstructive sleep apnea) Hyperlipidemia Gout GERD without esophagitis Surgical History Hx of total knee replacement Hx of endoscopy History of colonoscopy Family History Father Family history of high blood pressure Mother Hx of rheumatoid arthritis Social History Household Members: Spouse Housing: House Alcohol intake: current Alcohol intake frequency: former alcohol drinker Patient Tobacco Use Status: Former Tobacco user Tobacco use type: Cigarette Years Smoked: 5 years e-Cigarette/Vaping Use: Never Used Second Hand Smoke Exposure: No Current occupational status: retired Current occupation: rt hand Cognitive needs: No Hearing needs: No Vision needs: Yes Review of Systems Const Denies chills and Denies fever(s) Card Reports no additional complaints and Denies syncope Resp Denies cough GI Denies abdominal pain and Denies heartburn Reports as per HPI and Denies change in libido Neuro Denies syncope Psych Denies change in libido Endo Denies change in libido Physical Exam Const General: cooperative, healthy appearing, comfortable and no acute distress Orientation/consciousness: patient oriented x3 HEENT Face and sinus: Yes normal facial exam Mouth: moist mucous membranes Neck Neck: Yes normal visual inspection, Yes full ROM and Yes trachea midline Chest Chest palpation & inspection: normal inspection of the chest Resp Effort & Inspection: normal respiratory effort, able to speak in complete sentences and no respiratory distress GI Inspection: Yes normal to inspection Back/Spine/Pelvis Cervical Spine: normal cervical lordosis Thoracic/Lumbar Spine: thoracic and lumbar spine normal to inspection Skin General skin exam: no rashes or lesions noted Neuro General: patient oriented x3, gait normal, tone normal and moves all extremities Extrem General: Yes normal to inspection and Yes capillary refill normal Assessment & Plan Assessment & Plan (1) Bladder outlet obstruction: Code(s): N32.0 - Bladder-neck obstruction Category: Medical (2) Erectile dysfunction: Code(s): N52.9 - Male erectile dysfunction, unspecified Category: Medical Plan Twelve month follow-up Orders: Orders Prostate Specific Antigen 12 Months N32.0 - Bladder-neck obstruction Medications: Changed From sildenafil administer 30 minutes to 4 hours before activity 25 mg PO DAILY PRN 14 tabs 1RF sexual activity N32.0 - Bladder-neck obstruction To sildenafil administer 30 minutes to 4 hours before activity 100 mg PO ONCE 30 days PRN 30 tabs 1RF sexual activity N32.0 - Bladder-neck obstruction Refilled finasteride 5 mg PO DAILY 90 days 90 tabs 3RF N13.8 - Other obstructive and reflux uropathy, N32.0 - Bladder-neck obstruction, N40.1 - Benign prostatic hyperplasia with lower urinary tract symptoms, R33.9 - Retention of urine, unspecified terazosin 5 mg PO BEDTIME 90 days 90 caps 3RF N32.0 - Bladder-neck obstruction Patient Instructions: This note is constructed using voice recognition software. While every effort has been made to ensure accuracy director labor standards errors may have been included. Imaging studies, laboratory and physical exam results were discussed and reviewed in detail. No major barriers to patient understanding were identified. An opportunity to ask questions regarding the treatment plan was provided. All questions were answered. The patient expressed understanding and agreement with the above treatment plan. The patient is aware they should contact our office by phone for worsening of their current condition or the appearance of new urologic symptoms. Compliance is encouraged with any medications and followup testing that is ordered. It is a privilege to participate in the urologic care of your patient. If you have any questions or concerns regarding treatment for the above conditions, or other urologic issues, please do not hesitate to contact me. The office telephone contact is [phone]. Sincerely, Dr Mark Marie MD, [facility] - Urology Compassionate Specialist Care for the Genitourinary System Coding Level of Care Code Est Pt Level 4 (89320) Diagnoses Bladder outlet obstruction N32.0 Erectile dysfunction N52.9
== END 2024-09-27 15:30 | disposition home or self-care (01) ==
LOC: HO.HUSH 14:37
PROVIDERS: PCP Nurse Practitioner Family; Visit Provider Urology
DX: N32.0 Bladder-neck obstruction (principal); N52.9 Male erectile dysfunction, unspecified
CPT/HCPCS: 99214

== ENCOUNTER → 2024-09-27 14:37 | Outpatient (BNVA) | payer OTHER, SELFPAY | PROVIDERS: PCP Nurse Practitioner Family; Visit Provider Urology | DX: N32.0 Bladder-neck obstruction (principal); N52.9 Male erectile dysfunction, unspecified | CPT/HCPCS: 99212 ==

== ENCOUNTER 2024-09-28 08:36 | Outpatient (REF) | payer OTHER, SELFPAY ==
[2024-09-28 09:21] LABS: MANUAL DIFF FLAG NO
[2024-09-28 10:45] LABS: Basophils Percent Auto 0.7 % (0-2); Eosinophils Absolute Auto 0.1 X10*3/uL (0.0-0.4); Eosinophils Percent Auto 1.6 % (0-4); Hematocrit 46.6 % (42.0-52.0); Hemoglobin 15.1 g/dl (14.0-18.0); Imm Gran Abs Auto 0.01 X10*3/uL (0.00-0.03); Imm Gran Pct Auto 0.2 % (0.0-0.4); Lymphocytes Absolute Auto 1.2 X10*3/uL (1.2-4.9); Lymphocytes Percent Auto 19.5 % (20-40); Mean Corpuscular HGB Conc 32.4 g/dl (31.0-36.0); Mean Corpuscular Hemoglobin 28.3 pg (27.0-33.0); Mean Corpuscular Volume 87.3 fL (80.0-98.0); Mean Platelet Volume 10.6 fL (9.4-12.4); Monocytes Absolute Auto 0.3 X10*3/uL (0.1-1.2); Monocytes Percent Auto 4.6 % (2-11); Neutrophils Absolute Auto 4.5 x10*3/uL (2.0-8.3); Neutrophils Percent Auto 73.4 % (45-73); Platelet Count 227 X10*3/uL (160-400); Red Blood Count 5.34 X10*6/uL (4.60-5.80); Red Cell Distribution Width 13.2 % (11.0-16.0); White Blood Count 6.2 X10*3/uL (4.8-10.8)
[2024-09-28 10:54] LABS: Appearance Urine Clear; Color Urine Yellow; Glucose Urine UA Negative (Negative); Leukocyte Esterase Urine Negative (Negative); Nitrite Urine Negative (Negative); PH 6.5 (5.0-9.0); Urine Blood Negative (Negative); Urine Ketones Negative (Negative); Urine Protein Negative (Neg-Trace)
[2024-09-28 11:15] LABS: Alanine Aminotransferase 23 U/L (0-40); Albumin Level 4.4 g/dL (3.5-5.0); Alkaline Phosphatase 79 U/L (39-117); Anion Gap 13 (12-20); Aspartate Amino Transferase 27 U/L (5-37); Bilirubin Total 0.5 mg/dL (0.0-1.0); Blood Urea Nitrogen 14 mg/dL (9-16); Calcium 9.3 mg/dL (8.4-10.2); Carbon Dioxide 25 mmol/L (22-29); Chloride 108 mmol/L (96-108); Cholesterol 148 mg/dL (<200); Estimated Glomerular Filt Rate > 60; Glucose Fasting 94 mg/dL (60-99); Glucose Random 93 mg/dL (60-115); HDL Cholesterol 36 mg/dL (>40); LDL Cholesterol Calculated 89 mg/dL (<100); Potassium 4.7 mmol/L (3.3-5.1); Sodium 141 mmol/L (135-145); Total Protein 7.3 g/dL (6.5-8.0); Triglycerides 117 mg/dL (<150)
[2024-09-28 11:23] LABS: Total Protein Urine Random 9 mg/dL (<12)
[2024-09-28 11:30] LABS: Prostate Specific Antigen Scr 0.84 ng/mL (<0.05-4.0)
[2024-09-28 11:31] LABS: Prostate Specific Antigen 0.85 ng/mL (<0.05-4.0)
== END 2024-09-28 08:37 | disposition home or self-care (01) ==
LOC: HO.LAB 08:36
PROVIDERS: Internal Medicine Hypertension Specialist; Urology; PCP Nurse Practitioner Family; Visit Provider Nurse Practitioner Family
DX: R80.9 Proteinuria, unspecified (principal); N32.0 Bladder-neck obstruction; I10 Essential (primary) hypertension; Z12.5 Encounter for screening for malignant neoplasm of prostate
CPT/HCPCS: 36415; 80048; 80053; 80061; 81003; 82570; 84153; 84156; 84443; 85025

== ENCOUNTER 2024-10-02 09:15 | Outpatient (AMB) | payer MEDICARE, SELFPAY ==
--- NOTE | 2024-10-02 09:17 | MHC.PC.OV ---
Vital Signs 10/02/24 09:20 Height 5 ft 9 in Weight 270 lb BMI 39.9 BP 110/80 Blood Pressure Location Lt brachial Position Sitting Respiration 16 Pulse 54 Pulse Source Pulse Oximeter Temp 98.0 F Temp Source Oral Pulse Oximetry (%) 97 Oxygen Delivery Method Room Air Intake Visit Reasons: 6 months f/up w/ labs Intake Note: Pt is here today for his 6mo. f/u labs Allergies No Known Allergies [No Known Allergies*] Allergy (Verified 10/02/24 09:18) Tobacco use date assessed: 10/02/24 Fall risk assessment: No Falls in past year Last assessed Fall Risk: 10/02/24 Dental Screening Dental Screen Date: 10/02/24 Did you have a dental visit in the last 12 months?: No Did you have a dental problem in the last 6 months where you did not have access to dental care?: No Was dental information given to patient?: Patient has dentist HPI 6 months f/up w/ labs HPI Details Chief Complaint Follow-up for evaluation of hypertension. History of Present Illness The patient is a 74-year-old male presenting with follow-up for hypertension. He denies any concerning symptoms such as shortness of breath, chest pain, headaches, blurred vision, or dizziness, indicating good symptom control. He is actively managing his condition through lifestyle changes, including a strict diet and exercise regimen, which has resulted in significant weight loss and an overall improvement in his general health. Recent laboratory results have been favorable, reflecting his efforts in managing hypertension effectively. He notes no presence of edema or other related health issues, confirming the effective control of his condition. Social History - Engaged in regular exercise as part of a hypertension management regimen. - Actively participating in dietary management, contributing to significant weight loss. Health Maintenance - Diet and exercise regimen discussed as effective measures for controlling hypertension. Review of Systems - Cardiovascular: Denies chest pain. - Respiratory: Denies shortness of breath, increased shortness of breath. - Neurological: Denies headaches, blurred vision, dizziness. Physical Exam General: Cooperative, healthy appearing, comfortable, no acute distress and well developed, obese Orientation: Patient oriented x3 Limitations: No limitations Head: Normal to inspection Ears: Hearing grossly normal bilaterally Nose: Normal external nose present Face and sinus: Normal facial exam Eyes: Appearance normal, both eyes and all related structures Neck: Normal visual inspection and Yes full ROM Respiratory: Normal respiratory effort and able to speak in complete sentences. Clear to auscultation bilaterally Cardiovascular: Regular rate and rhythm. Normal S1 and S2 GI: Normal to inspection. Soft to palpation and nontender Skin: No rashes or lesions noted Neuro: Patient oriented x3 Extremities: Normal to inspection, no edema noted Results Plan For Essential Hypertension, it is recommended that the patient continue his current lifestyle modifications of diet and exercise, which have proven effective in weight management and overall health improvement. Recent lab results reflect these positive changes, supporting this continued approach. He will keep regular monitoring of his blood pressure, maintaining constant vigilance to prevent possible complications. Discussion Notes I discussed with the patient the importance of his current management plan comprising regular exercise and dietary adjustments, which have shown significant success in controlling his Essential Hypertension. We reviewed the benefits of continuing these lifestyle modifications, which are reflected in his recent lab results demonstrating substantial improvements. I advised maintaining these changes to ensure sustained hypertension management and prevent complications. Follow-up will be planned to monitor ongoing progress and reassess as necessary. Patient Instructions - Continue regular exercise and maintain dietary modifications. - Monitor blood pressure regularly as part of hypertension management. - Report any new or worsening symptoms such as chest pain or shortness of breath immediately. [facility] Medical History Hypertension Dyspnea PLMD (periodic limb movement disorder) Morbid obesity with BMI of 40.0-44.9, adult NAFL (nonalcoholic fatty liver) Cyst of left kidney Limb swelling DESIREE (obstructive sleep apnea) Hyperlipidemia Gout GERD without esophagitis Surgical History Hx of total knee replacement Hx of endoscopy History of colonoscopy Family History (Updated 10/02/24 @ 09:50 by Josey Dominguez [facility]) Father Family history of high blood pressure Mother Hx of rheumatoid arthritis Social History Household Members: Spouse Housing: House Alcohol intake: current Alcohol intake frequency: former alcohol drinker Patient Tobacco Use Status: Former Tobacco user Tobacco use type: Cigarette Years Smoked: 5 years e-Cigarette/Vaping Use: Never Used Second Hand Smoke Exposure: No Current occupational status: retired Current occupation: rt hand Cognitive needs: No Hearing needs: No Vision needs: Yes Questionnaire PHQ-9 Over the last 2 weeks, how often have you been bothered by any of the following problems? 1. Little interest or pleasure in doing things: not at all 2. Feeling down, depressed, or hopeless: not at all 3. Trouble falling or staying asleep, or sleeping too much: not at all 4. Feeling tired or having little energy: not at all 5. Poor appetite or overeating: not at all 6. Feeling bad about yourself - or that you are a failure or have let yourself or your family down: not at all 7. Trouble concentrating on things, such as reading the newspaper or watching television: not at all 8. Moving or speaking so slowly that other people could have noticed. Or the opposite - being so fidgety or restless that you have been moving around a lot more than usual: not at all 9. Thoughts that you would be better off or of hurting yourself in some way: not at all Total score: 0 Source: Developed by Drs. Patrick Wilson, Kriss Garza, Tom Juárez and colleagues, with an educational awilda from [employer]. Thrive Questionnaire Date Thrive assessed: 10/02/24 I am a: Patient What is your living situation today?: I have a steady place to live Within the past 12 months, did the food you bought not last and you didn't have the money to get more?: Never true Within the past 12 months, did you worry whether your food would run out before you got money to buy more?: Never true Do you have trouble paying for medicines?: No Do you have trouble getting transportation to medical appointments?: No Do you have trouble paying your heating and electricity bill?: No Do you have trouble taking care of your child, family member or friend?: No Do you have trouble with day-to-day activities such as bathing, preparing meals, shopping, managing finances, etc.?: No Are you currently unemployed and looking for a job?: No Are you interested in more education?: No Please select the resources that you would like help with: None THRIVE Score: 0 AUDIT C Alcohol Use Questionnaire (AUDIT-C) 1. How often do you have a drink containing alcohol?: Never Total Score: 0 MAREK-7 AMB Questionnaire MAREK-7 Date MAREK - 7 assessed: 10/02/24 Feeling nervous, anxious, or on edge: 0 = Not at all Not being able to stop or control worryin = Not at all Worrying too much about different things: 0 = Not at all Trouble relaxin = Not at all Being so restless that it is hard to sit still: 0 = Not at all Becoming easily annoyed or irritable: 0 = Not at all Feeling afraid as if something awful might happen: 0 = Not at all Total MAREK-7 score (0-4 normal; 5-9 mild; 10-14 moderate; 15-21 severe): 0 Source: Developed by Drs. Patrick Wilson, Kriss Garza, Tom Juárez and colleagues, with an educational awilda from [employer]. Physical exam (Primary Care) Vital Signs: Last Vital Signs Temp 98.0 F 10/02/24 09:20 Pulse 54 10/02/24 09:20 Resp 16 10/02/24 09:20 BP 110/80 10/02/24 09:20 Pulse Ox 97 10/02/24 09:20 Oxygen Delivery Method Room Air 10/02/24 09:20 BMI result Body Mass Index 39.9 Tobacco/Smoking Status: Tobacco use Status Tobacco use date assessed 10/02/24 10/02/24 09:19 Patient Tobacco Use Status Former Tobacco user 10/02/24 09:19 Tobacco use type Cigarette 10/02/24 09:19 e-Cigarette/Vaping Use Never Used 10/02/24 09:19 PHQ-9: PHQ-9 Score PHQ-9: Total score 0 10/02/24 09:50 Thrive Assessment: Date of Thrive Assessment Date Thrive assessed 10/02/24 10/02/24 09:19 Coding Level of Care Code Est Pt Level 3 (75096) Diagnoses Hypertension I10 Assessment & Plan Assessment & Plan (1) Hypertension: Code(s): I10 - Essential (primary) hypertension Category: Medical Plan .
[2024-10-02 09:20] VITALS: BP 110/80; PULSE 54; RESP 16; TEMP 36.7; O2SAT 97; BMI 39.9
== END 2024-10-02 10:19 | disposition home or self-care (01) ==
LOC: HO.HMCC 09:15
PROVIDERS: PCP Nurse Practitioner Family; Visit Provider Nurse Practitioner Family
DX: I10 Essential (primary) hypertension (principal)

== ENCOUNTER → 2024-10-02 09:15 | Outpatient (BNVA) | payer OTHER, SELFPAY | PROVIDERS: PCP Nurse Practitioner Family; Visit Provider Nurse Practitioner Family | DX: I10 Essential (primary) hypertension (principal) | CPT/HCPCS: 96127; 99212 ==

== ENCOUNTER 2024-11-07 07:46 | Outpatient (AMB) | payer OTHER, SELFPAY ==
--- NOTE | 2024-11-07 07:50 | A.OFFVIS_ITS ---
Vital Signs 11/07/24 07:51 Height 5 ft 9 in Weight 265 lb BMI 39.1 BP 138/68 Blood Pressure Location Lt brachial Position Sitting Pulse 54 Pulse Oximetry (%) 97 Oxygen Delivery Method Room Air Intake Visit Reasons: follow up Intake Note: Patient follow up for Adenomatous duodenal polyp Patient denies any GI issues. He was referral to Bariatric but no one called him for the appt. Security Site Supervisor Required: No Accompanied by: Self / Same As Patient Allergies No Known Allergies [No Known Allergies*] Allergy (Verified 11/07/24 07:50) Medication List - Last Reconciled 11/07/24 by Rod Gomez MD allopurinol 200 mg PO BID PRN atenolol 100 mg (2 x 50 mg) PO DAILY CPAP (CPAP Machine/Device) As directed escitalopram oxalate 5 mg PO DAILY fluticasone propionate 50 mcg/actuation 1 spray intranasal BID 30 days hydroxyzine pamoate 25 mg PO BID PRN ibuprofen 600 mg PO Q8H PRN meloxicam 7.5 mg PO DAILY PRN omeprazole 40 mg PO DAILY 90 days sildenafil 100 mg PO ONCE PRN 30 days terazosin 5 mg PO BEDTIME 90 days HPI HPI follow up: Details: GI clinic visit for this 74-year-old male with hypertension, hyperlipidemia, morbid obesity and gout for follow-up of GERD, fatty liver and colon polyps. Intentional wt loos of 35 lbs over the past 4 years. TODAY'S VISIT Patient denies any GI issues. He was referral to Bariatric but no one called him for the appt. Past lab results reviewed. Reluctant to have bariatric surgery due to concern for complications due to his age. He is willing to see them for medical wt loss - referral was sent to [facility] and pt has not been called yet. Heartburn is gone - taking Omeprazole as needed. Lost 20 lbs - works on his treadmill 15 to 20 min a day. PAST VISIT: He is interested in seeing Bariatric surgery since he is unable to loose weight. EGD and colon results reviewed. Doing well - GERD is under control Taking Omeprazole less than 3 times a week. Continues to have intermittent problems with PND ?Seen by ENT 1 year ago and treated by the derrick boat runner Did not follow up with allergy shots since it was a 3 yr treatment ? ? Lost 25 lbs and feeling better. Denies symptoms of heart burn and takes Omeprazole prn - usually every other week if he eats spicy food. Continues to have post nasal drips Discontinued allergy shots since they were not helping EGD and Colonoscopy results were reviewed with the patient. Continues to have PND x 2 yrs. Has been evaluated by ENT. Getting allergy shots and not very helpful in improving PND. Had acid regurgitation in the past and none at present. COVID free since since finished with quarantine ? ? Had mild symptoms - chills and ZHOU, loss of taste and smell ? ? Had his 2nd? COVID vaccine recently ? ? Continues to have post nasal drip and does not note any difference in his symptoms. ? ? Using Flonase and getting allergy shots. ?? ? Takes Indomethacine prn ? Doing very well with Omeprazole. ? Main concern is his post nasal drip. ? Saw ENT and is on allergy treatment - a shot every week x 1 year? for the past month. ? Dxed with allergy to dust mites. ? Notes heartburn once a week. ? Reflux symptoms well controlled with Omeprazole. ? Continues to have issues with post nasal drip for the past 3 months - bothering him too much. ? PND is getting worse and worse. ? Has to clear his throat frequently resulting in sore throat. ? Has been taking OTC anti allergy medications without relief. ? Saw an complaint specialist a month ago and scheduled for a follow-up appointment in November. ? Had allergy testing done and showed allergy to mites. ? Patient denies change in bowel habits, black stools or?rectal bleeding LABS [facility]:?07/31/19 normal CBC, iron studies and LFTs, low normal vitamin B12 at 223 ENDOSCOPIC PROCEDURES: 10/14/22 EGD AND COLON SHOWED: Endoscopy Findings: STOMACH: Gastritis DUODENUM: Duodenal polyp Colonoscopy Findings: Two small and one medium sized polyps removed Moderate diverticulosis seen in the sigmoid colon Moderate hemorrhoids on retroflexed exam. Plan: Repeat Colonoscopy interval based on path results - in 3 years if polyps are adenomatous and 5 years if polyps are hyperplastic (due to a hx of adenomatous colon polyps). 03/20/21 EGD AND COLONOSCOPY SHOWED: STOMACH: Gastritis with a few erosions - Bx negative for HP DUODENUM: Normal - no recurrent duodenal polyp noted. Colonoscopy Findings:? Three medium sized polyps removed - one polyp was retrieved - TA on bx Mild hemorrhoids on retroflexed exam. Plan:? Repeat Colonoscopy interval based on path results - in 1-2 years if polyps are adenomatous and due to suboptimal prep in the cecum. EGD 06/2019 ? gastritis, ? esophageal nodule ?DIAGNOSIS ? A. Stomach, biopsies: Gastric mucosa with moderate to severe chronic, inactive ? gastritis; negative for Helicobacter pylori organisms; negative for intestinal metaplasia; negative for dysplasia. ? B. Esophagus, nodule, biopsy: Polypoid fragments of squamous epithelium with mild to moderate reactive features suggestive of chronic reflux; negative for dysplasia/malignancy. ? NOTE:? Special studies ordered and performed: Immunostain for Helicobacter pylori on A. ? Discussed wih pt that he needs a repeat EGD in 1 year- due to adenoma removal ? 04/2018 colonoscopy was performed by Dr. Weber and 5 small adenomatous polyps were removed ? Repeat colonoscopy is due in 3 years PFSH Medical History Hypertension Dyspnea PLMD (periodic limb movement disorder) Morbid obesity with BMI of 40.0-44.9, adult NAFL (nonalcoholic fatty liver) Cyst of left kidney Limb swelling DESIREE (obstructive sleep apnea) Hyperlipidemia Gout GERD without esophagitis Surgical History Hx of total knee replacement Hx of endoscopy History of colonoscopy Family History Father Family history of high blood pressure Mother Hx of rheumatoid arthritis Social History Household Members: Spouse Housing: House Alcohol intake: current Alcohol intake frequency: former alcohol drinker Patient Tobacco Use Status: Former Tobacco user Tobacco use type: Cigarette Years Smoked: 5 years e-Cigarette/Vaping Use: Never Used Second Hand Smoke Exposure: No Current occupational status: retired Current occupation: rt hand Cognitive needs: No Hearing needs: No Vision needs: Yes Review of Systems Const All systems reviewed & are unremarkable except as noted in HPI and below Physical Exam Vital Signs: Last Vital Signs Pulse 54 05/22/25 07:51 BP 138/68 11/07/24 07:51 Pulse Ox 97 11/07/24 07:51 Oxygen Delivery Method Room Air 11/07/24 07:51 BMI result Body Mass Index 39.1 Const General: healthy appearing and no acute distress Nutritional Appearance: obese Orientation/consciousness: patient oriented x3 Limitations: no limitations HEENT Head: Yes normal to inspection Ears: hearing grossly normal bilaterally Eyes Sclerae: sclerae normal Pupils: Equal, round and reactive pupils present Neck Neck: Yes normal visual inspection Chest Chest palpation & inspection: normal inspection of the chest Resp Effort & Inspection: normal respiratory effort Auscultation: clear to auscultation bilaterally Cardio Palpation: normal PMI Rate: regular rate Rhythm: regular rhythm Heart sounds: S1 normal heart sound present, S2 normal heart sound present and no murmurs GI Palpation (GI): Soft to palpation, nontender and No hepatosplenomegaly present Auscultation: normal bowel sounds Rectal Exam - Male: Yes deferred Skin General skin exam: no rashes or lesions noted Neuro General: patient oriented x3, gait normal and moves all extremities Cranial nerves: Yes Equal, round and reactive pupils present Psych Appearance: grossly normal Mental Status: mental status grossly normal Assessment & Plan Assessment & Plan (1) GERD without esophagitis: Comment: Taking Omeprazole 40 mg prn every 1-2 weeks Code(s): K21.9 - Gastro-esophageal reflux disease without esophagitis Category: Medical (2) Adenomatous duodenal polyp: Comment: 09/2022 small polyp removed from duodenum and no adenomatous tissue was detected Code(s): D13.2 - Benign neoplasm of duodenum Category: Medical (3) History of colon polyps: Comment: 09/2022 Colonoscopy showed: Two small and one medium sized polyps removed Plan: Repeat Colonoscopy in 5 years due to a hx of adenomatous colon polyps. 03/2021 Colonoscopy: Three medium sized polyps removed - one polyp was retieved - TA on bx Mild hemorrhoids on retroflexed exam. Plan: Repeat Colonoscopy interval based on path results - in 1-2 years if polyps are adenomatous and due to suboptimal prep in the cecum. 04/2018 colonoscopy was performed by Dr. Weber and 5 small adenomatous polyps were removed Repeat colonoscopy is due in 3 years - due in 04/2021. Code(s): Z86.010 - Personal history of colon polyps Category: Medical (4) Elevated liver enzymes: Comment: Likely due to fatty liver. Anticipate LFTs will improve with continued weight loss Code(s): R74.8 - Abnormal levels of other serum enzymes Category: Medical (5) Fatty liver: Code(s): K76.0 - Fatty (change of) liver, not elsewhere classified Category: Medical Plan 74-year-old male followed in GI for GERD. His GERD symptoms have improved after he lost weight and are well controlled with omeprazole 40 mg prn every 1-2 weeks. Patient has postnasal drip with frequent throat clearing which is persisting despite taking Flonase and getting allergy shots. Did not follow up with allergy shots since it was a 3 yr treatment Uses CPAP due for sleep apnea. 09/2022 upper endoscopy (GERD and FU of duodenal polyp) and Colonoscopy (FU of colon polyps) were performed and findings as noted above 12/22/22 Pt referred to Bariatric surgery - has seen the Occupational Health Technician and continued to gain weight Fatty liver on imaging studies with normal LFTs. 03/14/24 Reluctant to have bariatric surgery due to concern for complications due to his age. He is willing to see them for medical wt loss - referral sent. Heartburn is gone - taking Omeprazole as needed. 11/07/24 Ref sent to [facility] for evaluation for Medical wt loss Follow-up appointment in 6 months - due for colonoscopy next year for FU of colon polyps Coding Level of Care Code Est Pt Level 3 (07600) Diagnoses GERD without esophagitis K21.9 Adenomatous duodenal polyp D13.2 History of colon polyps Z86.010 Elevated liver enzymes R74.8 Fatty liver K76.0 Time Spent (min) 18
[2024-11-07 07:51] VITALS: BP 138/68; PULSE 54; O2SAT 97; BMI 39.1
== END 2024-11-07 08:23 | disposition home or self-care (01) ==
LOC: HO.HGI 07:46
PROVIDERS: PCP Nurse Practitioner Family; Visit Provider Internal Medicine Gastroenterology
DX: K21.9 Gastro-esophageal reflux disease without esophagitis (principal); D13.2 Benign neoplasm of duodenum; Z86.0100 Personal history of colon polyps, unspecified; R74.8 Abnormal levels of other serum enzymes; K76.0 Fatty (change of) liver, not elsewhere classified
CPT/HCPCS: 99213

== ENCOUNTER → 2024-11-07 07:46 | Outpatient (BNVA) | payer OTHER, SELFPAY | PROVIDERS: PCP Nurse Practitioner Family; Visit Provider Internal Medicine Gastroenterology | DX: D13.2 Benign neoplasm of duodenum (principal); K21.9 Gastro-esophageal reflux disease without esophagitis; K76.0 Fatty (change of) liver, not elsewhere classified; R74.8 Abnormal levels of other serum enzymes; Z86.0100 Personal history of colon polyps, unspecified | CPT/HCPCS: 99212 ==

== ENCOUNTER 2025-03-15 10:20 | Outpatient (REF) | payer OTHER, SELFPAY ==
[2025-03-15 12:29] LABS: Total Protein Urine Random 8 mg/dL (<12)
== END 2025-03-15 10:21 | disposition home or self-care (01) ==
LOC: HO.LAB 10:20
PROVIDERS: PCP Nurse Practitioner Family; Visit Provider Internal Medicine Hypertension Specialist
DX: R80.9 Proteinuria, unspecified (principal)
CPT/HCPCS: 82570; 84156

== ENCOUNTER 2025-03-19 13:18 | Outpatient (AMB) | payer OTHER, SELFPAY ==
--- NOTE | 2025-03-19 13:18 | HO.NEPHOV_ITS ---
Vital Signs 03/19/25 13:19 Height 5 ft 9 in BP 128/72 Blood Pressure Location Lt brachial Position Sitting Pulse 58 Pulse Source Pulse Oximeter Pulse Oximetry (%) 97 Oxygen Delivery Method Room Air Intake Visit Reasons: R/S 03/05/2025 Marketing Services Manager Required: No Accompanied by: Self / Same As Patient Allergies No Known Allergies (No Known Allergies*) Allergy (Verified 03/19/25 13:21) Medication List - Last Reconciled 03/19/25 by Riccardo Nunez MD atenolol 100 mg (2 x 50 mg) PO DAILY buspirone 5 mg PO BID clonazepam 0.5 mg PO DAILY PRN CPAP (CPAP Machine/Device) As directed escitalopram oxalate 15 mg PO QAM fluticasone propionate 50 mcg/actuation 1 spray intranasal BID 30 days hydroxyzine pamoate 25 mg PO BID PRN ibuprofen 600 mg PO Q8H PRN omeprazole 40 mg PO DAILY PRN sildenafil 100 mg PO ONCE PRN 30 days terazosin 5 mg PO BEDTIME 90 days HPI Comments Details: Tyrese is a pleasant 74-year-old man with a history of hypertension who has been referred for proteinuria. He has no history of diabetes mellitus. History of BPH and currently follows with Dr. Marie. s/p Cystoscopy Today he has no specific complaints. 03/19/25 Doing well. No new issues. NO edema No urinary issues PFSH Medical History Hypertension Dyspnea PLMD (periodic limb movement disorder) Morbid obesity with BMI of 40.0-44.9, adult NAFL (nonalcoholic fatty liver) Cyst of left kidney Limb swelling DESIREE (obstructive sleep apnea) Hyperlipidemia Gout GERD without esophagitis Surgical History Hx of total knee replacement Hx of endoscopy History of colonoscopy Family History Father Family history of high blood pressure Mother Hx of rheumatoid arthritis Social History Household Members: Spouse Housing: House Alcohol intake: current Alcohol intake frequency: former alcohol drinker Patient Tobacco Use Status: Former Tobacco user Tobacco use type: Cigarette Years Smoked: 5 years e-Cigarette/Vaping Use: Never Used Second Hand Smoke Exposure: No Current occupational status: retired Current occupation: rt hand Cognitive needs: No Hearing needs: No Vision needs: Yes Review of Systems Neuro Denies confusion Psych Denies confusion Physical Exam Vital Signs: Last Vital Signs Pulse 58 03/19/25 13:19 BP 128/72 03/19/25 13:19 Pulse Ox 97 03/19/25 13:19 Oxygen Delivery Method Room Air 03/19/25 13:19 Const General: No confusion Orientation/consciousness: No confusion Eyes General: appearance normal, both eyes and all related structures Visual Fontenot: normal visual fontenot by confrontation Neck Neck: Yes supple and Yes no JVD Resp Effort & Inspection: normal respiratory effort and respiratory effort not decreased Cardio Palpation: no palpable S3 and no palpable S4 Heart sounds: no rubs GI Inspection: Yes normal to inspection Palpation (GI): Soft to palpation Percussion: Yes normal to percussion Auscultation: normal bowel sounds General: Yes no CVA tenderness Back/Spine/Pelvis Back: no CVA tenderness Skin General skin exam: no petechiae and no purpura Neuro General: No confusion Extrem General: No clubbing and No edema Results Reviewed Nephrology Results: Hgb, (14.0-18.0) 15.1 g/dl 09/28/24 WBC, (4.8-10.8) 6.2 X10*3/uL 09/28/24 Plt Count, (160-400) 227 X10*3/uL 09/28/24 Sodium, (135-145) 141 mmol/L 09/28/24 Potassium, (3.3-5.1) 4.7 mmol/L 09/28/24 Chloride, (96-108) 108 mmol/L 09/28/24 Carbon Dioxide, (22-29) 25 mmol/L 09/28/24 BUN, (9-16) 14 mg/dL 09/28/24 Creatinine, (0.5-1.4) 0.81 mg/dL 09/28/24 Calcium, (8.4-10.2) 9.3 mg/dL 09/28/24 Urine Protein, (Neg-Trace) Negative mg/dL 09/28/24 Urine Creatinine 111.17 mg/dL 03/15/25 Renal US 01/18/23 Assessment & Plan Assessment & Plan (1) Protein in urine: Code(s): R80.9 - Proteinuria, unspecified Category: Medical Plan 74-year-old man with a history of hypertension with the proteinuria and essentially normal renal function. Recent urine protein creatinine ratio was 0.10. He has no significant proteinuria. We discussed importance of tight control blood pressure. He will benefit from weight loss. Blood pressure is well controlled. No absolute indication for MATTEO inhibitor since he has no significant proteinuria. I have reassured him. Encouraged him to stand low-sodium diet. Increase exercise activity and weigh loss Microscopic hematuria in the setting of BPH and renal cyst. s/p Cystoscopy No changes made today Orders: Orders Creatinine Urine 1 Year Riccardo Nunez MD I10 - Essential (primary) hypertension Total Protein Urine Random 1 Year Riccardo Nunez MD I10 - Essential (primary) hypertension Basic Metabolic Panel 1 Year Riccardo Nunez MD I10 - Essential (primary) hypertension UA and rflx microscopic 1 Year Riccardo Nunez MD I10 - Essential (primary) hypertension Medications: Changed From omeprazole 40 mg PO DAILY 90 caps 0RF K21.9 - Gastro-esophageal reflux disease without esophagitis To omeprazole 40 mg PO DAILY PRN K21.9 - Gastro-esophageal reflux disease without esophagitis Rod Gomez MD Coding Level of Care Code Est Pt Level 4 (91024) Diagnoses Protein in urine R80.9
[2025-03-19 13:19] VITALS: BP 128/72; PULSE 58; O2SAT 97
== END 2025-03-19 13:34 | disposition home or self-care (01) ==
LOC: HO.HKAM 13:18
PROVIDERS: PCP Nurse Practitioner Family; Visit Provider Internal Medicine Hypertension Specialist
DX: R80.9 Proteinuria, unspecified (principal)
CPT/HCPCS: 99214

== ENCOUNTER → 2025-03-19 13:18 | Outpatient (BNVA) | payer OTHER, SELFPAY | PROVIDERS: PCP Nurse Practitioner Family; Visit Provider Internal Medicine Hypertension Specialist | DX: R80.9 Proteinuria, unspecified (principal); I10 Essential (primary) hypertension | CPT/HCPCS: 99212 ==

== ENCOUNTER 2025-04-02 08:54 | Outpatient (AMB) | payer MEDICARE, SELFPAY ==
--- NOTE | 2025-04-02 09:01 | MHC.PC.OV ---
Vital Signs 04/02/25 09:02 Height 5 ft 9 in Weight 264 lb BMI 39.0 BP 128/84 Blood Pressure Location Lt brachial Position Sitting Respiration 16 Pulse 85 Pulse Source Pulse Oximeter Pulse Oximetry (%) 97 Oxygen Delivery Method Room Air Intake Visit Reasons: 6m follow up Agricultural And Forestry Supervisor Required: No Accompanied by: Self / Same As Patient Allergies No Known Allergies (No Known Allergies*) Allergy (Verified 04/02/25 09:12) Medication List - Last Reconciled 04/02/25 by GUY Pak- atenolol 100 mg (2 x 50 mg) PO DAILY buspirone 5 mg PO BID clonazepam 0.5 mg PO DAILY PRN CPAP (CPAP Machine/Device) As directed escitalopram oxalate 15 mg PO QAM fluticasone propionate 50 mcg/actuation 1 spray intranasal BID 30 days hydroxyzine pamoate 25 mg PO BID PRN ibuprofen 600 mg PO Q8H PRN omeprazole 40 mg PO DAILY PRN terazosin 5 mg PO BEDTIME 90 days Tobacco use date assessed: 04/02/25 Fall risk assessment: No Falls in past year Last assessed Fall Risk: 04/02/25 Dental Screening Dental Screen Date: 04/02/25 Did you have a dental visit in the last 12 months?: Yes Did you have a dental problem in the last 6 months where you did not have access to dental care?: No Was dental information given to patient?: Patient has dentist HPI 6m follow up HPI Details Chief Complaint The patient presents for a follow-up regarding hypertension management. History of Present Illness The patient is a 75-year-old male presenting with a follow-up visit for hypertension management. He reports doing well, actively losing weight, and feeling good overall. He denies experiencing any chest pain, dyspnea, dizziness, blurred vision, or headaches. His blood pressure is stable, and he is currently on medication for hypertension. The plan includes continuing current medications and monitoring laboratory results, with a fasting test scheduled in the near future. Preventative care measures, including vaccinations, were reviewed during the visit. Social History Health Maintenance - Vaccinations reviewed and updated as necessary Review of Systems - Cardiovascular: Denies chest pain - Respiratory: Denies dyspnea - Neurological: Denies dizziness or blurred vision - General: Denies headaches Physical Exam General: Cooperative, healthy appearing, comfortable, no acute distress and well developed Orientation: Patient oriented x3 Limitations: No limitations Head: Normal to inspection Ears: Hearing grossly normal bilaterally Nose: Normal external nose present Face and sinus: Normal facial exam Eyes: Appearance normal, both eyes and all related structures Neck: Normal visual inspection and Yes full ROM Respiratory: Normal respiratory effort and able to speak in complete sentences. Clear to auscultation bilaterally Cardiovascular: Regular rate and rhythm. Normal S1 and S2 GI: Normal to inspection. Soft to palpation and nontender Skin: No rashes or lesions noted Neuro: Patient oriented x3 Extremities: Normal to inspection Results Plan 1. Essential Hypertension The patient will continue with the current antihypertensive medications as his blood pressure is stable. Regular monitoring of blood pressure and laboratory tests will be conducted, with a fasting test planned in the near future. Follow-up is scheduled in six months to reassess the condition and adjust the treatment plan if necessary. 2. Preventative Care: Vaccinations Vaccinations were reviewed and updated as necessary during the visit. Discussion Notes During the visit, we discussed the patient's stable blood pressure and the continuation of current medications. We also reviewed the importance of regular monitoring and scheduled a fasting test for the near future. Vaccinations were updated as necessary, and a follow-up appointment was set for six months. Patient Instructions - Continue taking your current blood pressure medications as prescribed. - Schedule and complete the fasting test as planned. - Attend the follow-up appointment in six months. - Ensure vaccinations are up to date. [facility] Medical History Hyperlipidemia Hypertension Dyspnea PLMD (periodic limb movement disorder) Morbid obesity with BMI of 40.0-44.9, adult NAFL (nonalcoholic fatty liver) Cyst of left kidney Limb swelling DESIREE (obstructive sleep apnea) Gout GERD without esophagitis Surgical History Hx of total knee replacement Hx of endoscopy History of colonoscopy Family History Father Family history of high blood pressure Mother Hx of rheumatoid arthritis Social History Household Members: Spouse Housing: House Alcohol intake: current Alcohol intake frequency: former alcohol drinker Patient Tobacco Use Status: Former Tobacco user Tobacco use type: Cigarette Years Smoked: 5 years e-Cigarette/Vaping Use: Never Used Second Hand Smoke Exposure: No Current occupational status: retired Current occupation: rt hand Cognitive needs: No Hearing needs: No Vision needs: Yes Questionnaire Thrive Questionnaire Date Thrive assessed: 10/02/24 I am a: Patient What is your living situation today?: I have a steady place to live Within the past 12 months, did the food you bought not last and you didn't have the money to get more?: Never true Within the past 12 months, did you worry whether your food would run out before you got money to buy more?: Never true Do you have trouble paying for medicines?: No Do you have trouble getting transportation to medical appointments?: No Do you have trouble paying your heating and electricity bill?: No Do you have trouble taking care of your child, family member or friend?: No Do you have trouble with day-to-day activities such as bathing, preparing meals, shopping, managing finances, etc.?: No Are you currently unemployed and looking for a job?: No Are you interested in more education?: No Please select the resources that you would like help with: None THRIVE Score: 0 MAREK-7 AMB Questionnaire MAREK-7 Date MAREK - 7 assessed: 10/02/24 Source: Developed by Drs. Patrick Wilson, Kriss Garza, Tom Juárez and colleagues, with an educational awilda from [email or web address]. Physical exam (Primary Care) Vital Signs: Last Vital Signs Pulse 85 04/02/25 09:02 Resp 16 04/02/25 09:02 BP 128/84 04/02/25 09:02 Pulse Ox 97 04/02/25 09:02 Oxygen Delivery Method Room Air 04/02/25 09:02 BMI result Body Mass Index 39.0 Tobacco/Smoking Status: Tobacco use Status Tobacco use date assessed 04/02/25 04/02/25 09:06 Patient Tobacco Use Status Former Tobacco user 04/02/25 09:06 Tobacco use type Cigarette 04/02/25 09:06 e-Cigarette/Vaping Use Never Used 04/02/25 09:06 Thrive Assessment: Date of Thrive Assessment Date Thrive assessed 10/02/24 04/02/25 09:06 Coding Level of Care Code Est Pt Level 3 (68959) Diagnoses Hypertension I10 Hyperlipidemia E78.5 Vitamin D deficiency E55.9 Assessment & Plan Assessment & Plan (1) Hypertension: Code(s): I10 - Essential (primary) hypertension Category: Medical (2) Hyperlipidemia: Code(s): E78.5 - Hyperlipidemia, unspecified Category: Medical (3) Vitamin D deficiency: Code(s): E55.9 - Vitamin D deficiency, unspecified Category: Medical Plan . Orders: Orders Complete Blood Count Auto Diff Today E78.5 - Hyperlipidemia, unspecified, I10 - Essential (primary) hypertension Comprehensive [place]. Panel Fast Today E78.5 - Hyperlipidemia, unspecified, I10 - Essential (primary) hypertension Vitamin D 25-OH Total Today E55.9 - Vitamin D deficiency, unspecified TSH reflex Free T4 Today E78.5 - Hyperlipidemia, unspecified, I10 - Essential (primary) hypertension UA CC w/rflx Micro + Cult Today E78.5 - Hyperlipidemia, unspecified, I10 - Essential (primary) hypertension Lipid Panel Today E78.5 - Hyperlipidemia, unspecified, I10 - Essential (primary) hypertension
[2025-04-02 09:02] VITALS: BP 128/84; PULSE 85; RESP 16; O2SAT 97; BMI 39.0
== END 2025-04-02 09:21 | disposition home or self-care (01) ==
LOC: HO.HMCC 08:55
PROVIDERS: PCP Nurse Practitioner Family; Visit Provider Nurse Practitioner Family
DX: I10 Essential (primary) hypertension (principal); E78.5 Hyperlipidemia, unspecified; E55.9 Vitamin D deficiency, unspecified

== ENCOUNTER → 2025-04-02 08:54 | Outpatient (BNVA) | payer MEDICARE, SELFPAY | PROVIDERS: PCP Nurse Practitioner Family; Visit Provider Nurse Practitioner Family | DX: I10 Essential (primary) hypertension (principal); E78.5 Hyperlipidemia, unspecified; E55.9 Vitamin D deficiency, unspecified | CPT/HCPCS: 99212 ==

== ENCOUNTER 2025-04-11 15:35 | Outpatient (AMB) | payer OTHER, SELFPAY ==
[2025-04-11 15:39] VITALS: BP 158/86; PULSE 57; O2SAT 97; BMI 41.0
--- NOTE | 2025-04-11 15:39 | MHC.OFFVIS ---
Vital Signs 04/11/25 15:39 Height 5 ft 9 in Weight 277 lb 12.519 oz BMI 41.0 BP 158/86 H Blood Pressure Location Lt brachial Position Sitting Pulse 57 Pulse Source Pulse Oximeter Pulse Oximetry (%) 97 Oxygen Delivery Method Room Air Intake Visit Reasons: Sleep apnea Grocery Manager Required: No Accompanied by: Self / Same As Patient Allergies No Known Allergies (No Known Allergies*) Allergy (Verified 04/11/25 15:41) HPI Comments Details: The patient is a 75-year-old gentleman with morbid obesity and severe obstructive sleep apnea. He had a sleep study back in 2018 demonstrating an AHI of 82 events an hour with significant desaturation. The patient had a titration study was subsequently placed on PAP. He has been set up through [facility] and had been using his PAP regularly. However, the patient had issues with compliance. He was also lost to follow-up. Therefore he was an active from his [employer] company. The patient however started using his PAP therapy again even though he does not have any new supplies she is because his symptoms were getting much worse. The patient has significant daytime drowsiness with an [place] score of 14/24. Once he started using the PAP therapy his symptoms improved. However, he is not able to get any supplies from his [employer] company since he is inactive. The patient needs an urgent sleep study in order to get reactivated with his [employer] company at this time. In the meantime the patient complains of dyspnea on exertion. Moderate severity. He did have a workup including PFT which demonstrated a mild isolated diffusion impairment likely from underlying pulmonary vascular disease. The patient continues to have shortness of breath he denies any chest pains. He has not had an EKG. At least documented in our system since 2017. It demonstrated some nonspecific T-wave changes. He has not had a cardiac evaluation. 02/01/2021 the patient is here for a pulmonary follow-up visit. The patient continues to have significant daytime drowsiness. He has been using CPAP for many years with significant improvement. His current settings on CPAP his AHI was still 15. The patient is no longer active with a [employer] company. Therefore we had him him repeat home sleep study demonstrating an AHI 42. Patient understands that he has severe sleep apnea. He does state that he did have a titration study couple years ago and after that his CPAP was adjusted and has helped. Therefore, this point will request a BiPAP to be initiated for the patient to treat his severe sleep apnea. I did contact the local [employer] company in order to do so. Once he is on BiPAP will be able to adjusted. If the BiPAP to having hard time adjusting to decrease his AHI then at that point they will be reasonable to have him have a repeat titration study. In the meantime he did have an abnormal EKG as he was having some chest discomfort. Still some nonspecific T-wave changes. He did undergo a cardiac stress echo which demonstrated no evidence of any ischemia which is reassuring. The patient continues with respiratory therapy. Will follow up in several weeks once he started his new BiPAP. 03/15/2021 the patient is here for a pulmonary follow-up visit. The patient continues to struggle with his CPAP. the right his machine his AHI was significantly elevated at 15. We did try to get in touch with his [employer] company in order to change his CPAP to a BiPAP in view of his failing CPAP therapy. However, after no response from the [employer] company did call. Apparently the patient has been discontinued and he is considered in active with a [employer] company. Previously with [employer]. Therefore, the only way of getting him reactivated with a [employer] company will be with a repeat home sleep study. The patient does have an elevated [place] score of 11 when he does not use CPAP. Although he is pretty compliant with the CPAP at this time. However, he is not getting any supplies and he has been using the same supplies now apparently for years. Therefore we need to get him a sleep study in order to be able to address his needs. 08/27/2021 the patient is here for a pulmonary follow-up visit. Overall the patient has been doing about the same. Continues to have daytime drowsiness. He did have a repeat sleep study which initially demonstrating an AHI of 8.7. He was titrated on CPAP and he was able to be stabilized on CPAP of 11 cm. His oxygenation also improved. He has significant REM during the sleep study suggesting that he was getting appropriate sleep. Therefore, will continue with his current CPAP although will adjust his CPAP settings to accurately meet his needs. Based on his persistent sleep apnea will see about getting him reactivated with his [employer] company. 11/30/2021 the patient is here for a pulmonary follow-up visit. Overall the patient is doing well. He is tolerating his nasal cradle mask well. He did bring his PAP therapy in. Appears to have a VPAP auto. seems to be responding well to the current therapy. His AHI appears to be between 4-8 events an hour. Although half of the events appeared to be central. Explained to the patient that he has a complex sleep apnea. If we aggressively treat the obstructive component we can always worsen the central component. Therefore decrease the pressure some. But more than that I am concerned that he has significant air leak primarily because the mouth being open. He does like his nasal n30 mask. I did provide him with a chinstrap. I will also request a chinstrap from his [employer] company. He will return in 3 months and bring his machine to further adjusted. I am hopeful that he continues to do well and we can try to decrease the central apneas further. From a respiratory status the patient is doing well denies any chest pains or any shortness of breath. He does not use any inhalers. He does have allergies at this time. Does have nasal congestion and a postnasal drip. [id number]-mn-iclaglib severity. 02/28/2022 the patient is here for a pulmonary follow-up visit. Overall he is doing well. He has switch over to a nasal mask because the cradle in the pillows were not effective for him. However, he does not always use the chinstrap. He does complaint of a dry mouth. Urine he has some gingival disease and some to DKA. We talked about the importance of maintaining good do interval hygiene by avoiding dry mouth. Explained to him that this is primarily due to the Armin gaping through his mouth when he is using the nasal mask. I did highly recommend he go for fullface mask. I did have a large F20 mask available for him. I will also submit 1 to his [employer] company. Current the PAP settings are good. His AHI is down to 1.6 events an hour. Therefore will continue with current settings. From a respiratory status is doing okay. He has been increased dyspnea on exertion. Mild in severity. Although he does came back from vacation and he had lot of dietary indiscretion. He did note some lower extremity edema and also started developing gout-like symptoms. 08/29/2022 the patient is here for a pulmonary follow-up visit. Overall the patient has been doing okay. He continues to use his PAP therapy. His AHI continuesis better, AHI 2.6.. This overall is better than before. The patient does have a nasal mask. We had requested an N20 mask back in August through his DME, [employer]. But they have yet to provide the right mask. I did provide him another sample to help him continue to tolertae the therapy. I will request again the N20 mask. He is having issue with his teeth, He does have an air leakage through the mouth. He needs to use the chadwick strap more regularly. He has noticed some increase LE edema. We did talk about starting a low sodium diet. 04/12/2024 the patient is here for a pulmonary follow-up visit. The patient overall has been doing well. He continues use the VPAP. The VPAP therapy has been affecting beneficial. He does have an AHI of about 2.3. This is about average for him. Sometimes it goes up any may be positional. He was wondering about other alternative therapy such as the inspire. I did explain to him the relative contraindications due to his body habitus. Also the fact that it will not work as well specially with his very severe apnea. The patient had an AHI of 42 events an hour and now down to less than 3 which is very reassuring. He is going to monitor closely his AHI and monitor closely disposition try not to lay on his back so much. He is also working on weight loss. He already lost about 30 lb since we last saw him. This is very good. In addition to that is working on exercise. His respiratory exam is fairly good. And his all extremities also have improved with less edema. 04/11/2025 the patient is here for pulmonary follow-up visit. Overall the patient has been doing well. He has been using his VPAP every night. The CPAP therapy has been affecting beneficial he does use it for more than 4 hours a night. He still complains of a dry mouth. Also irritation of the mouth. He does have regular tubing. I did provide him with climate tubing and will adjust the temperature and humidity appropriately to help him with his symptoms. He is wondering about alternative therapies to PAP therapy. Right now he is working on weight. He may be a good candidate for GLP 1 inhibitor in order to lose the weight in order to repeat the sleep study. 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 Hopefully with weight loss his central apneas will improve and we can then have him undergo a sleep study once he reaches the goal weight. Will reassess in a year. But for now he will continue with the PAP therapy since it has been affecting beneficial in his helping him significantly. Respiratory santiago the patient is doing well denies any complaints. The patient follow-up in a year if he has any issues prior to this he will call for an earlier assessment. [facility] Medical History Hyperlipidemia Hypertension Dyspnea PLMD (periodic limb movement disorder) Morbid obesity with BMI of 40.0-44.9, adult NAFL (nonalcoholic fatty liver) Cyst of left kidney Limb swelling DESIREE (obstructive sleep apnea) Gout GERD without esophagitis Surgical History Hx of total knee replacement Hx of endoscopy History of colonoscopy Family History Father Family history of high blood pressure Mother Hx of rheumatoid arthritis Social History Household Members: Spouse Housing: House Alcohol intake: current Alcohol intake frequency: former alcohol drinker Patient Tobacco Use Status: Former Tobacco user Tobacco use type: Cigarette Years Smoked: 5 years e-Cigarette/Vaping Use: Never Used Second Hand Smoke Exposure: No Current occupational status: retired Current occupation: rt hand Cognitive needs: No Hearing needs: No Vision needs: Yes Review of Systems Const Denies chills and Denies fever(s) Eyes Denies blurry vision ENT Reports Normal hearing present, Denies vertigo, Denies dizziness, Reports dry mouth, Reports nasal congestion, Reports nasal discharge and Denies sore throat Card Denies chest pain at rest, Denies chest pain with activity, Denies diaphoresis, Reports leg edema, Denies dyspnea and Denies dyspnea on exertion Resp Reports cough, Denies dyspnea, Denies dyspnea on exertion and Denies wheezing GI Denies abdominal pain, Denies melena, Denies hematochezia, Denies constipation, Denies diarrhea and Denies loose stools Denies hematuria Musc Reports arthralgias, Reports joint swelling, Reports limited range of motion and Denies tingling Skin/Breast Denies lesions Neuro Reports Normal hearing present, Denies Abnormal speech present, Denies vertigo, Denies dizziness and Denies tingling Psych Denies anxiety, Denies depression, Denies homicidal ideation, Denies suicidal ideation and Denies other (substance abuse) Aller/Immun Denies wheezing Physical Exam Vital Signs: Last Vital Signs Pulse 57 04/11/25 15:39 BP 158/86 H 04/11/25 15:39 Pulse Ox 97 04/11/25 15:39 Oxygen Delivery Method Room Air 04/11/25 15:39 BMI result Body Mass Index 41.0 Const General: healthy appearing and no acute distress Nutritional Appearance: average body habitus Orientation/consciousness: patient oriented x3 Limitations: no limitations HEENT Head: Yes normal to inspection Ears: hearing grossly normal bilaterally Mouth: Normal oral and palatal mucosa present Eyes Sclerae: sclerae normal Pupils: Equal, round and reactive pupils present Neck Neck: Yes normal visual inspection Chest Chest palpation & inspection: normal inspection of the chest Resp Effort & Inspection: normal respiratory effort Auscultation: clear to auscultation bilaterally Cardio Palpation: normal PMI Rate: regular rate Rhythm: regular rhythm Heart sounds: S1 normal heart sound present, S2 normal heart sound present and no murmurs GI Palpation (GI): Soft to palpation, nontender and No hepatosplenomegaly present Auscultation: normal bowel sounds Rectal Exam - Male: Yes deferred Skin General skin exam: no rashes or lesions noted Neuro General: patient oriented x3, gait normal and moves all extremities Cranial nerves: Yes Equal, round and reactive pupils present and Yes Normal hearing present Speech: No Abnormal speech present Extrem General: Yes edema Psych Appearance: grossly normal Mental Status: mental status grossly normal Assessment & Plan Assessment & Plan (1) DESIREE (obstructive sleep apnea): Comment: continue autoVPAP Code(s): G47.33 - Obstructive sleep apnea (adult) (pediatric) Category: Medical (2) Dyspnea: Code(s): R06.00 - Dyspnea, unspecified Category: Medical Qualifiers: Dyspnea type: dyspnea on exertion Qualified Code(s): R06.00 - Dyspnea, unspecified (3) Limb swelling: Code(s): M79.89 - Other specified soft tissue disorders Category: Medical (4) PLMD (periodic limb movement disorder): Code(s): G47.61 - Periodic limb movement disorder Category: Medical Plan Continue VPAP auto, maximum pressure 05/06. Will request medium N20 mask again, climate tubing, DME [place] May benefit from Gabapentin for PLMD continue Flonase' Low sodium diet weight management ?GLP1 inhibitor F/U 12 months Coding Level of Care Code Est Pt Level 4 (92231) Complex EM visit Add On G2211 Diagnoses DESIREE (obstructive sleep apnea) G47.33 Dyspnea on exertion R06.00 Dyspnea type: dyspnea on exertion Limb swelling M79.89 PLMD (periodic limb movement disorder) G47.61 Time Spent (min) 17
== END 2025-04-11 16:00 | disposition home or self-care (01) ==
LOC: HO.HPS 15:36
PROVIDERS: PCP Nurse Practitioner Family; Visit Provider Hospitalist
DX: G47.33 Obstructive sleep apnea (adult) (pediatric) (principal); R06.00 Dyspnea, unspecified; M79.89 Other specified soft tissue disorders; G47.61 Periodic limb movement disorder
CPT/HCPCS: 99214; G2211

== ENCOUNTER → 2025-04-11 15:35 | Outpatient (BNVA) | payer OTHER, SELFPAY | PROVIDERS: PCP Nurse Practitioner Family; Visit Provider Hospitalist | DX: G47.33 Obstructive sleep apnea (adult) (pediatric) (principal); R06.00 Dyspnea, unspecified; G47.61 Periodic limb movement disorder; M79.89 Other specified soft tissue disorders; E66.01 Morbid (severe) obesity due to excess calories; Z68.41 Body mass index [BMI] 40.0-44.9, adult | CPT/HCPCS: 99212 ==

== ENCOUNTER 2025-05-01 07:24 | Outpatient (AMB) | payer OTHER, SELFPAY ==
--- NOTE | 2025-05-01 07:32 | A.OFFVIS_ITS ---
Vital Signs 05/01/25 07:35 Height 5 ft 9 in Weight 277 lb BMI 40.9 BP 114/61 Blood Pressure Location Lt brachial Position Sitting Pulse 63 Intake Visit Reasons: 6m Intake Note: Patient follow up for Adenomatous duodenal polyp Patient denies any GI issues. Palliative Care Specialist Required: No Accompanied by: Self / Same As Patient Allergies No Known Allergies (No Known Allergies*) Allergy (Verified 05/01/25 07:32) Medication List - Last Reconciled 05/01/25 by Rod Gomez MD atenolol 100 mg (2 x 50 mg) PO DAILY buspirone 5 mg PO BID clonazepam 0.5 mg PO DAILY PRN CPAP (CPAP Machine/Device) As directed escitalopram oxalate 20 mg PO QAM fluticasone propionate 50 mcg/actuation 1 spray intranasal BID 30 days hydroxyzine pamoate 25 mg PO BID PRN ibuprofen 600 mg PO Q8H PRN omeprazole 40 mg PO DAILY PRN terazosin 5 mg PO BEDTIME 90 days HPI HPI 6m: Details: GI clinic visit for this 75-year-old male with hypertension, hyperlipidemia, morbid obesity and gout for follow-up of GERD, fatty liver and colon polyps. Intentional wt loos of 35 lbs over the past 4 years. TODAY'S VISIT Patient denies any GI issues. He was referral to Bariatric but no one called him for the appt. Past lab results reviewed. Reluctant to have bariatric surgery due to concern for complications due to his age. He is willing to see them for medical wt loss - referral was sent to [facility] and [facility] has not been called yet. Heartburn is gone - taking Omeprazole as needed. Lost 20 lbs - works on his treadmill 15 to 20 min a day. PAST VISIT: He is interested in seeing Bariatric surgery since he is unable to loose weight. EGD and colon results reviewed. Doing well - GERD is under control Taking Omeprazole less than 3 times a week. Continues to have intermittent problems with PND ?Seen by ENT 1 year ago and treated by the genetic physician Did not follow up with allergy shots since it was a 3 yr treatment ? ? Lost 25 lbs and feeling better. Denies symptoms of heart burn and takes Omeprazole prn - usually every other week if he eats spicy food. Continues to have post nasal drips Discontinued allergy shots since they were not helping EGD and Colonoscopy results were reviewed with the patient. Continues to have PND x 2 yrs. Has been evaluated by ENT. Getting allergy shots and not very helpful in improving PND. Had acid regurgitation in the past and none at present. COVID free since since finished with quarantine ? ? Had mild symptoms - chills and ZHOU, loss of taste and smell ? ? Had his 2nd? COVID vaccine recently ? ? Continues to have post nasal drip and does not note any difference in his symptoms. ? ? Using Flonase and getting allergy shots. ?? ? Takes Indomethacine prn ? Doing very well with Omeprazole. ? Main concern is his post nasal drip. ? Saw ENT and is on allergy treatment - a shot every week x 1 year? for the past month. ? Dxed with allergy to dust mites. ? Notes heartburn once a week. ? Reflux symptoms well controlled with Omeprazole. ? Continues to have issues with post nasal drip for the past 3 months - bothering him too much. ? PND is getting worse and worse. ? Has to clear his throat frequently resulting in sore throat. ? Has been taking OTC anti allergy medications without relief. ? Saw an art therapy specialist a month ago and scheduled for a follow-up appointment in November. ? Had allergy testing done and showed allergy to mites. ? Patient denies change in bowel habits, black stools or?rectal bleeding LABS IN [facility]:?07/31/19 normal CBC, iron studies and LFTs, low normal vitamin B12 at 223 ENDOSCOPIC PROCEDURES: 10/14/22 EGD AND COLON SHOWED: Endoscopy Findings: STOMACH: Gastritis DUODENUM: Duodenal polyp Colonoscopy Findings: Two small and one medium sized polyps removed Moderate diverticulosis seen in the sigmoid colon Moderate hemorrhoids on retroflexed exam. Plan: Repeat Colonoscopy interval based on path results - in 3 years if polyps are adenomatous and 5 years if polyps are hyperplastic (due to a hx of adenomatous colon polyps). 03/20/21 EGD AND COLONOSCOPY SHOWED: STOMACH: Gastritis with a few erosions - Bx negative for HP DUODENUM: Normal - no recurrent duodenal polyp noted. Colonoscopy Findings:? Three medium sized polyps removed - one polyp was retrieved - TA on bx Mild hemorrhoids on retroflexed exam. Plan:? Repeat Colonoscopy interval based on path results - in 1-2 years if polyps are adenomatous and due to suboptimal prep in the cecum. EGD 06/2019 ? gastritis, ? esophageal nodule ?DIAGNOSIS ? A. Stomach, biopsies: Gastric mucosa with moderate to severe chronic, inactive ? gastritis; negative for Helicobacter pylori organisms; negative for intestinal metaplasia; negative for dysplasia. ? B. Esophagus, nodule, biopsy: Polypoid fragments of squamous epithelium with mild to moderate reactive features suggestive of chronic reflux; negative for dysplasia/malignancy. ? NOTE:? Special studies ordered and performed: Immunostain for Helicobacter pylori on A. ? Discussed wih pt that he needs a repeat EGD in 1 year- due to adenoma removal ? 04/2018 colonoscopy was performed by Dr. Weber and 5 small adenomatous polyps were removed ? Repeat colonoscopy is due in 3 year [facility] Medical History Hyperlipidemia Hypertension Dyspnea PLMD (periodic limb movement disorder) Morbid obesity with BMI of 40.0-44.9, adult NAFL (nonalcoholic fatty liver) Cyst of left kidney Limb swelling DESIREE (obstructive sleep apnea) Gout GERD without esophagitis Surgical History Hx of total knee replacement Hx of endoscopy History of colonoscopy Family History Father Family history of high blood pressure Mother Hx of rheumatoid arthritis Social History Household Members: Spouse Housing: House Alcohol intake: current Alcohol intake frequency: former alcohol drinker Patient Tobacco Use Status: Former Tobacco user Tobacco use type: Cigarette Years Smoked: 5 years e-Cigarette/Vaping Use: Never Used Second Hand Smoke Exposure: No Current occupational status: retired Current occupation: rt hand Cognitive needs: No Hearing needs: No Vision needs: Yes Review of Systems Const All systems reviewed & are unremarkable except as noted in HPI and below Physical Exam Vital Signs: Last Vital Signs Pulse 63 05/01/25 07:35 BP 114/61 05/01/25 07:35 BMI result Body Mass Index 40.9 Const General: no acute distress Nutritional Appearance: obese Orientation/consciousness: patient oriented x3 Limitations: no limitations HEENT Head: Yes normal to inspection Ears: hearing grossly normal bilaterally Eyes Sclerae: sclerae normal Pupils: Equal, round and reactive pupils present Neck Neck: Yes normal visual inspection Chest Chest palpation & inspection: normal inspection of the chest Resp Effort & Inspection: normal respiratory effort Auscultation: clear to auscultation bilaterally Cardio Palpation: normal PMI Rate: regular rate Rhythm: regular rhythm Heart sounds: S1 normal heart sound present, S2 normal heart sound present and no murmurs GI Palpation (GI): Soft to palpation, nontender and No hepatosplenomegaly present Auscultation: normal bowel sounds Rectal Exam - Male: Yes deferred Skin General skin exam: no rashes or lesions noted Neuro General: patient oriented x3, gait normal and moves all extremities Cranial nerves: Yes Equal, round and reactive pupils present Psych Appearance: grossly normal Mental Status: mental status grossly normal Assessment & Plan Assessment & Plan (1) GERD without esophagitis: Comment: Taking Omeprazole 40 mg prn every 1-2 weeks Code(s): K21.9 - Gastro-esophageal reflux disease without esophagitis Category: Medical (2) Elevated liver enzymes: Comment: Likely due to fatty liver. Anticipate LFTs will improve with continued weight loss Code(s): R74.8 - Abnormal levels of other serum enzymes Category: Medical (3) NAFL (nonalcoholic fatty liver): Code(s): K76.0 - Fatty (change of) liver, not elsewhere classified Category: Medical (4) Adenomatous duodenal polyp: Comment: 09/2022 small polyp removed from duodenum and no adenomatous tissue was detected Code(s): D13.2 - Benign neoplasm of duodenum Category: Medical (5) History of colon polyps: Comment: 09/2022 Colonoscopy showed: Two small and one medium sized polyps removed Plan: Repeat Colonoscopy in 5 years due to a hx of adenomatous colon polyps. 03/2021 Colonoscopy: Three medium sized polyps removed - one polyp was retieved - TA on bx Mild hemorrhoids on retroflexed exam. Plan: Repeat Colonoscopy interval based on path results - in 1-2 years if polyps are adenomatous and due to suboptimal prep in the cecum. 04/2018 colonoscopy was performed by Dr. Weber and 5 small adenomatous polyps were removed Repeat colonoscopy is due in 3 years - due in 04/2021. Code(s): Z86.010 - Personal history of colon polyps Category: Medical Plan 75 year-old male followed in GI for GERD. His GERD symptoms have improved after he lost weight and are well controlled with omeprazole 40 mg prn every 1-2 weeks. Patient has postnasal drip with frequent throat clearing which is persisting despite taking Flonase and getting allergy shots. Did not follow up with allergy shots since it was a 3 yr treatment Uses CPAP due for sleep apnea. 09/2022 upper endoscopy (GERD and FU of duodenal polyp) and Colonoscopy (FU of colon polyps) were performed and findings as noted above 12/22/22 Pt referred to Bariatric surgery - has seen the [employer] and continued to gain weight Fatty liver on imaging studies with normal LFTs. 03/14/24 Reluctant to have bariatric surgery due to concern for complications due to his age. He is willing to see them for medical wt loss - referral sent. Heartburn is gone - taking Omeprazole as needed. 11/07/24 Ref sent to [facility] for evaluation for Medical wt loss 05/01/25 advised to schedule an upper endoscopy (FU of duodenal polyp and gastric intestinal metaplasia) and colonoscopy (FU colon polyps) Pt reports he has not been called from [facility] for an appt yet. Follow-up appointment in 6 months. Orders: Referrals GI Procedure Notification D13.2 - Benign neoplasm of duodenum, K21.9 - Gastro- esophageal reflux disease without esophagitis, Z86.010 - Personal history of colon polyps Medications: New polyethylene glycol 3350 (Miralax) Mix Miralax with 64 oz(8 cups) of Crystal light. Take 2 tablets of Dulcolax qt 12 pm. Wait to have your 1st bowel movement, then begin drinking Miralax. Drink a glass of Miralax every 10-15 minutes until you are finished. You will drink at least another 4 cups of clear liquid of your choice over the next 2 hours. Please drink as many clear liquids as possible You may have clear liquids up to four hours before your procedure 17 grams PO DAILY 238 grams 0RF colon prep 1 day bisacodyl (Dulcolax (bisacodyl)) Take 2 tablets at 12 pm starting 7 days before colonoscopy 10 mg (2 x 5 mg) PO ONCE 14 tabs 0RF colon prep 7 days Coding Level of Care Code Est Pt Level 3 (50508) Diagnoses GERD without esophagitis K21.9 Elevated liver enzymes R74.8 NAFL (nonalcoholic fatty liver) K76.0 Adenomatous duodenal polyp D13.2 History of colon polyps Z86.010 Time Spent (min) 18
[2025-05-01 07:35] VITALS: BP 114/61; PULSE 63; BMI 40.9
== END 2025-05-01 08:03 | disposition home or self-care (01) ==
LOC: HO.HGI 07:25
PROVIDERS: PCP Nurse Practitioner Family; Visit Provider Internal Medicine Gastroenterology
DX: K21.9 Gastro-esophageal reflux disease without esophagitis (principal); R74.8 Abnormal levels of other serum enzymes; K76.0 Fatty (change of) liver, not elsewhere classified; D13.2 Benign neoplasm of duodenum; Z86.0100 Personal history of colon polyps, unspecified
CPT/HCPCS: 99213

== ENCOUNTER → 2025-05-01 07:24 | Outpatient (BNVA) | payer OTHER, SELFPAY | PROVIDERS: PCP Nurse Practitioner Family; Visit Provider Internal Medicine Gastroenterology | DX: K21.9 Gastro-esophageal reflux disease without esophagitis (principal); K76.0 Fatty (change of) liver, not elsewhere classified; R74.8 Abnormal levels of other serum enzymes; D13.2 Benign neoplasm of duodenum; Z86.0100 Personal history of colon polyps, unspecified | CPT/HCPCS: 99212 ==